=== PATIENT | male | born 1985 | race Caucasian/White ===

== ENCOUNTER 2024-11-20 13:59 | Outpatient (AMB) | payer OTHER, SELFPAY ==
--- NOTE | 2024-11-20 14:02 | MHC.OFFVIS ---
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 Denies finger locking. Has tried braces without relief. Denies any prior injuries to the hands. Reports left wrist ganglion cyst removal 2018. Patient states he had an EMG done at [facility] 2022. 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 He complains of numbness in the median nerve distribution bilaterally. Symptoms intermittent, but daily, worse at night. He complains of weakness with gripping and that he often drops objects. He says he gets numbness and tingling with driving and activities.. He also complains of a burning pain and worsening numbness at night when he is trying to sleep. He says he had a ganglion cyst removed from his left wrist in 2018, and they nicked a nerve during the procedure. he reports some numbness to the back of his wrist He says he had a NCS done at [facility] in 2022, and was told he had bilateral carpal tunnel syndrome. This study is not available for us. He also says he has peripheral neuropathy in his feet. 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 plant Review of Systems Const All systems reviewed & are unremarkable except as noted in HPI and below Physical Exam Vital Signs: BMI result Body Mass Index 42.7 Const General: cooperative, healthy appearing and no acute distress Orientation/consciousness: patient oriented x3 HEENT Head: Yes normocephalic and Yes atraumatic Eyes EOM: EOMs intact bilaterally Resp Effort & Inspection: normal respiratory effort and able to speak in complete sentences Cardio Jugular venous distension: no JVD Skin General skin exam: turgor normal Rashes: no rashes Neuro General: patient oriented x3 Extrem Other: Evaluation of Bilateral Upper Extremity: The patient is alert, oriented, and in no acute distress Neuro: Median, Ulnar, Radial nerves motor and sensory intact and sensation is normal to the tips of all digits. Some numbness to the superficial radial nerve distribution of the left wrist No thenar or intrinsic wasting Good APB muscle belly firing and good finger cross Vascular: Cap refill brisk ROM: He can make a fist and extend all his digits No locking or catching Skin: No lacerations or abrasions. General: No Ecchymosis. No Erythema or evidence of infection. Psych Appearance: grossly normal Affect: normal affect Attitude: cooperative Assessment & Plan Assessment & Plan (1) Bilateral hand numbness: Code(s): R20.0 - Anesthesia of skin Category: Medical Plan Assessment & Plan: 1. Bilateral hand numbness In the median nerve distribution Symptoms intermittent, but daily, worse at night I educated him about carpal & cubital tunnel syndrome I ordered a NCS to assess for peripheral nerve compression He will follow up when completed for review Scribed for Heather Lentz MD by Vlad Burnett medical review specialist, on 11/20/24 at 2:15 PM, EST. Orders: Orders NE nerve conduction velocity Today R20.0 - Anesthesia of skin, R20.2 - Paresthesia of skin Coding Level of Care Code New Pt Level 4 (58211) Diagnoses Bilateral hand numbness R20.0
[2024-11-20 14:08] VITALS: BMI 42.7
--- OUTSIDE RECORDS SUMMARY | 2024-11-20 15:00 | XMS_ITS ---
Author Organization [facility] Address [address] [address] Care Team Providers Care Alarm Technician Name Role Phone JESSICA FERNANDEZ Primary Care Provider REASON FOR VISIT Hand Surgery Encounters Encounter Location Date Provider Diagnosis [address] [address] 10/15/2024 JESSICA FERNANDEZ Plan Of Treatment Next Appt Details Provider Name:Angie maradiaga, 12/04/2024 11:15:00 AM, [address] [place] [address], [place], [address], Progress Notes * Ayaz DAUGHERTY RDOB:1984 (39 yo M)Acc No.[id number]:10/15/2024 Patient:?Ayaz DAUGHERTY :1985???Age:39 Y???Sex:Male Address:[address] [place] [address] * true * Date:? Generated for Printi ng/Du/eTransmitting on:?11/20/2024 03:00 PM EST
--- OUTSIDE RECORDS SUMMARY | 2024-11-20 15:00 | XMS_ITS | Clinical Summary ---
Author Organization [facility] Address [address] [place] [address] Care Team Providers Care Social Studies Department Chair Name Role Phone Dusty Pike MD Primary Care Provider [phone] Medical History Medical History Date Comments ETOH abuse 08/06/2010 DX:ETOH abuse Family History Medical History Relation Name Comments Other: ?bipolar Paternal Grandmother Other: alcoholic Uncle 1 Relation Name Status Comments Paternal Grandmother Uncle 1 Uncle 2 Social History Tobacco Use Types Packs/Day Years Used Date Smoking Tobacco: Every Day Cigarettes Smokeless Tobacco: Never Alcohol Use Standard Drinks/Week Comments Yes 0 (1 standard drink = 0.6 oz pur e alcohol) Sex and Gender Information Value Date Recorded Sex Assigned at Not on file Legal Sex Male 5:52 PM EST Gender Identity Not on file Sexual Orientation Not on file Obstetrics History Plan of Treatment Health Maintenance Due Date Last Done Comments DTaP,Tdap,and Td Vaccines (1 - Tdap) 2002 Hepatitis A Vaccines (1 of 2 - Risk 2-dose series) 2002 Hepatitis B Vaccines (1 of 3 - 19+ 3-dose series) 2002 Pneumococcal Vaccine: Pediat rics (0 to 5 Years) and At-Risk Patients (6 to 64 Years) (1 of 2 - PCV) 2002 Cholesterol Screening (Lipid Panel) 09/04/2022 Depression Screening 09/04/2022 HIV Screening 09/04/2022 Hepatitis C Screening 09/04/2022 Social Influencers of Health Screening 09/04/2022 COVID-19 Vaccine (2023-2 5 season) 2024 Influenza Vaccine (#1) 2024 HIB Vaccines Aged Out No longer eligi ble based on patient's age to complete this topic HPV Vaccines Aged Out No longer eligi ble based on patient's age to complete this topic IPV Vaccines Aged Out No longer eligi ble based on patient's age to complete this topic MMR Vaccines Aged Out No longer eligi ble based on patient's age to complete this topic Meningococcal ACWY Vaccine Aged Out N o longer eligible based on patient's age to complete this topic Meningococcal B Vacine Aged Out No lo nger eligible based on patient's age to complete this topic RSV Immunization Patients Un aniket 20 months Aged Out No longer eligible b ased on patient's age to complete this topic Varicella Vaccines Aged Out No longer eligible based on patient's age to complete this topic Care Teams Social Studies Department Chair Relationship Specialty Start Date End Date Dusty Pike MD [address] [place] [id number] PCP - General Internal Medicine 10/05/21
--- OUTSIDE RECORDS SUMMARY | 2024-11-20 15:01 | XMS_ITS ---
Author Organization [facility] Address [address] [address] Care Team Providers Care Industrial Truck Operator Name Role Phone JESSICA FERNANDEZ Primary Care Provider REASON FOR VISIT Orthopedic Encounters Encounter Location Date Provider Diagnosis [facility] [address] [address] 11/06/2024 JESSICA FERNANDEZ Plan Of Treatment Next Appt Details Provider Name:Angie maradiaga, 12/04/2024 11:15:00 AM, [address] [place] [address], [place], [address], Progress Notes * Ayaz DAUGHERTY RDOB:1984 (39 yo M)Acc No.[id number]:11/06/2024 Patient:?Ayaz DAUGHERTY :1985???Age:39 Y???Sex:Male [address] [facility] [place] [address] * true * Date:? Generated for Printi ng/Du/eTransmitting on:?11/20/2024 03:00 PM EST
--- OUTSIDE RECORDS SUMMARY | 2024-11-20 15:01 | XMS_ITS | Patient Health Record ---
Author Organization [facility] Address [address] [place] [address] Care Team Providers Care Cable Former Name Role Phone JESSICA FERNANDEZ Primary Care Provider Angie Patel Unavailable [phone] Allergies No Known Allergies Results Component Value Reference Range Notes CBC With Differential/Platel et-[id number] Reviewed date:07/10/2024 02:36:26 PM Interpretation: Performing Lab:[facility], [address] [place] [address], [place], Phone - [phone], Director - Carli Notes/Report: Test(s) 118002-Yegfipvzaqgmy Acid, Serum was developed and its performance characteristics determined by [facility]. It has not been cleared or approved by the Food and Drug Administration. WBC 9.7 3.4-10.8 x10E3/uL RBC 4.54 4.14-5.80 x10E6/uL Hemoglobin 14.6 13.0-17.7 g/dL Hematocrit 42.8 37.5-51.0 % MCV 94 79-97 fL MCH 32.2 26.6-33.0 pg MCHC 34.1 31.5-35.7 g/dL RDW 12.8 11.6-15.4 % Platelets 257 150-450 x10E3/uL Neutrophils 65 Not Estab. % Lymphs 25 Not Estab. % Monocytes 9 Not Estab. % Eos 1 Not Estab. % Basos 0 Not Estab. % Neutrophils (Absolute) 6.3 1.4-7.0 x10E3/uL Lymphs (Absolute) 2.4 0.7-3.1 x10E3/uL Monocytes(Absolute) 0.8 0.1-0.9 x10E3/uL Eos (Absolute) 0.1 0.0-0.4 x10E3/uL Baso (Absolute) 0.0 0.0-0.2 x10E3/uL Immature Granulocytes 0 Not Estab. % Immature Grans (Abs) 0.0 0.0-0.1 x10E3/uL TSH-[id number] Reviewed date:07/10/2024 02:08:55 PM Interpretation: Performing Lab:[facility] [address], Phone - [phone], Director - [facility] Notes/Report: Test(s) 982661-Npasuyjtpbfgp Acid, Serum was developed and its performance characteristics determined by [facility]. It has not been cleared or approved by the Food and Drug Administration. TSH 1.820 0.450-4.500 uIU/mL Homocyst(e)ine-853787 Reviewed date:07/10/2024 10:19:56 AM Interpretation: Performing Lab:[facility] [address], Phone - [phone], Director [facility] Notes/Report: Test(s) 697696-Dzpvjcmmomxlv Acid, Serum was developed and its performance characteristics determined by [facility]. It has not been cleared or approved by the Food and Drug Administration. Homocyst(e)ine 10.5 0.0-14.5 umol/L Methylmalonic Acid, Serum-70 6961 Reviewed date:07/10/2024 02:36:11 PM Interpretation: Performing Lab:[facility] [address], Phone - [phone], [facility] [place]: Test(s) 167742-Rtdsragqqgmfc Acid, Serum was developed and its performance characteristics determined by [facility]. It has not been cleared or approved by the Food and Drug Administration. Methylmalonic Acid, Serum 116 0-378 nmol/L Lipid Panel-[id number] Reviewed date:07/10/2024 02:13:16 PM Interpretation: Performing Lab:[facility] [address], Phone - [phone], [facility] [place]/Report: Test(s) 303735-Qdotnjsltfvep Acid, Serum was developed and its performance characteristics determined by [facility]. It has not been cleared or approved by the Food and Drug Administration. Cholesterol, Total 225 100-199 mg/dL Triglycerides 247 0-149 mg/dL HDL Cholesterol 44 >39 mg/dL VLDL Cholesterol Harvey 44 5-40 mg/dL LDL Chol Calc ([facility]) 137 0-99 mg/dL Ferritin-[id number] Reviewed date:07/10/2024 02:36:33 PM Interpretation: Performing Lab:[facility] [address], Phone - [phone], [facility] [place]/Report: Test(s) 615193-Jqcztobewjyyz Acid, Serum was developed and its performance characteristics determined by [facility]. It has not been cleared or approved by the Food and Drug Administration. Ferritin 619 30-400 ng/mL Magnesium-346716 Reviewed date:07/10/2024 02:36:18 PM Interpretation: Performing Lab:[facility] [address], Phone - [phone], [facility] [place]/Report: Test(s) 265123-Iseivppmpfdrv Acid, Serum was developed and its performance characteristics determined by [facility]. It has not been cleared or approved by the Food and Drug Administration. Magnesium 2.2 1.6-2.3 mg/dL Iron and TIBC-535122 Reviewed date:07/10/2024 03:23:58 PM Interpretation: Performing Lab:[facility] [address], Phone - [phone], [facility] [place]/Report: Test(s) 046279-Tnpmkiowwtfyc Acid, Serum was developed and its performance characteristics determined by [facility]. It has not been cleared or approved by the Food and Drug Administration. Iron Bind.Cap.(TIBC) 331 250-450 ug/dL UIBC 272 111-343 ug/dL Iron 59 38-169 ug/dL Iron Saturation 18 15-55 % Vitamin B12 and Folate-37746 0 Reviewed date:07/10/2024 03:26:58 PM Interpretation: Performing Lab:[facility] [address], Phone - [phone], [facility] [place]/Report: Test(s) 022920-Enorjfmxvrqwz Acid, Serum was developed and its performance characteristics determined by [facility]. It has not been cleared or approved by the Food and Drug Administration. Vitamin B12 641 944-4918 pg/mL Folate (Folic Acid), Serum 8.9 >3.0 ng/mL A serum folate concentration of less than 3.1 ng/mL is considered to represent clinical deficiency. Reason For Referral Reason ingrown toenail Diagnosis 1 Ingrowing nail (L60. 0) Referral Organization [facility] Referring Provider First Name JESSICA Referring Provider Last Name DAYANARA Referring Provider Speciality Internal edicine Referred Provider Specialty Podiatry General Notes Referral faxed to [facility] at F: P: . Referral Hand given to patient. MaryThelma moya 01/04/2024 02:00:08 PM > Referral Priority Routine Reason Evaluation and manag ement Diagnosis 1 Encounter for screen ing for malignant neoplasm of skin (Z12.83) Referral Organization [facility] Referring Provider First Name JESSICA Referring Provider Last Name DAYANARA Referring Provider Speciality Internal edicine Referred Provider Specialty Dermatology General Notes Referral sent to [facility] ([address] [place], [place] [id number] ) - Office will call patient for scheduling.Michael Latraya 07/31/2024 04:42:01 PM > Referral Priority Routine Reason B/L CTS Please casey luate and treat Diagnosis 1 Carpal tunnel syndro me, bilateral upper limbs (G56.03) Referral Organization [facility] Referring Provider First Name JESSICA Referring Provider Last Name DAYANARA Referring Provider Speciality Internal edicine Referred Provider Specialty Hand Surgery General Notes refarral was faxed t o [facility], please contact patient for scheduling.Michaela Rashida 10/15/2024 11:51:06 AM > Referral Priority Routine Reason PLEASE EVALUATE AND TREAT Diagnosis 1 Carpal tunnel syndro me, bilateral upper limbs (G56.03) Referral Organization [facility] Referring Provider First Name Angie Referring Provider Last Name Jorge Referred Provider Specialty Orthopedic S urgery General Notes referral was faxed t o [facility]. Please contact patient for scheduling, Kimi Jennings 11/06/2024 04:46:55 PM > Referral Priority Routine Reason please evaluate and treat Diagnosis 1 Hidradenitis suppura tiva (L73.2) Referral Organization [facility] Referring Provider First Name Angie Referring Provider Last Name Jorge Referred Provider Specialty Dermatology General Notes referral was faxed t o [facility]. please contact patient for scheduling., Kimi Jennings 11/06/2024 04:45:30 PM > Referral Priority Routine Medications Medication SIG (Take, Route, Frequency, Duration) Notes Start Date End Date Status Sertraline HCl 50 MG 1 tablet Orally Onc e a day for 30 days 09/04/2024 Active chlordiazePOXIDE HCl 25 MG 1 capsule Ora lly Twice a day for 5 days 06/28/2024 Not-Taking Zepbound 7.5 MG/0.5ML 0.5 mL Subcutaneou s weekly for 30 days 11/06/2024 Active Meloxicam 15 MG 1 tablet Orally Once a day for 30 days 06/05/2024 Active Naltrexone HCl 50 MG 1 tablet Orally Onc e a day for 30 days 11/02/2023 Not-Taking Sertraline HCl 50 MG 1 tablet Orally Onc e a day for 30 days 11/06/2024 Active Ondansetron HCl 4 MG 1 tablet Orally twi ce a day for 10 days 07/24/2024 Active Meloxicam 15 MG 1 tablet Orally Once a day for 30 day(s) 11/22/2022 Not-Taking Doxycycline Hyclate 100 MG 1 tablet Oral ly 2 TIMES A DAY for 14 days 07/24/2024 Not-Taking tiZANidine HCl 4 MG 1 tablet as needed Orally Three times a day for 7 days 11/22/2022 Not-Taking Ezetimibe 10 MG 1 tablet Orally Once a day for 90 days 07/10/2024 Active Acamprosate Calcium 333 MG 2 tablets Ora lly Three times a day for 30 days 06/28/2024 Not-Taking Gabapentin 300 MG 1 capsule Orally Onc e a day for 30 days 12/07/2023 Active tiZANidine HCl 4 MG 1 tablet at bedtime as needed Orally Once a day for 14 days 06/05/2024 Not-Taking Zepbound 5 MG/0.5ML 5 mg Subcutaneous weekly for 30 days 06/05/2024 Active Wegovy 2.4 MG/0.75ML 0.75 mL Subcutaneou s once a week for 30 days 12/29/2022 Not-Taking Cialis 5 MG 1 tablet as needed Orally Once a day for 30 days Active Ondansetron HCl 4 MG 1 tablet Orally twi ce a day for 10 days 02/23/2024 Not-Taking cloNIDine HCl 0.1 MG 1 tablet Orally Onc e a day for 30 days 06/28/2024 Active Social History Tobacco Use: Social History Observation Description Date Details (start date - stop date) Current Smoker NA - NA Tobacco Use/Smoking Question Answer Notes Are you a current smoker How often do you smoke cigarettes? every day Alcohol Screen (Audit-C) Question Answer Notes Did you have a drink contain ing alcohol in the past year? Yes How often did you have a dri nk containing alcohol in the past year? 4 or more times a week (4 points) How many drinks did you have on a typical day when you were drinking in the past year? 10 or more drinks (4 points) Points 8 Interpretation Positive Problems Problem Type SNOMED Code ICD Code Onset Dates Problem Status W/U Status Risk Notes Problem Morbid obesity (disorder) (148466990) Morbid (severe) obesity due to excess calories (E66.01) Active confirmed Problem Mixed hyperlipidemia (847032557) Mixed hyperlipidemia (E78.2) Active confirmed Problem Hyperlipidemia (62553902) Hyperlipidemia, unspecified (E78.5) Active confirmed Problem Alcohol dependence (98113010) Alcohol dependence, uncomplicated (F10.20) Active confirmed Problem Tobacco user (985440363) Nicotine dependence, cigarettes, uncomplicated (F17.210) Active confirmed Problem Obstructive sleep apnea syndrome (disorder) (30936053) Obstructive sleep apnea (adult) (pediatric) (G47.33) Active confirmed Problem Carpal tunnel syndrome (54740523) Carpal tunnel syndrome, left upper limb (G56.02) Active confirmed Problem Polyneuropathy (90643310) Polyneuropathy, unspecified (G62.9) Active confirmed Problem Constipation (11745046) Constipation, unspecified (K59.00) Active confirmed Problem Hidradenitis suppurativa (23472933) Hidradenitis suppurativa (L73.2) Active confirmed Problem Degeneration of thoracolumbar intervertebral disc (98899932) Other intervertebral disc degeneration, thoracolumbar region (M51.35) Active confirmed Problem Plantar fascial fibromatosis (58385941) Plantar fascial fibromatosis (M72.2) Active confirmed Problem Erectile dysfunction (disorder) (997648385) Male erectile dysfunction, unspecified (N52.9) Active confirmed Problem Paresthesia (finding) (91910460) Paresthesia of skin (R20.2) Active confirmed Problem Carpal tunnel syndrome (63721475) Carpal tunnel syndrome, bilateral upper limbs (G56.03) Active confirmed Problem Anxiety (96785809) Anxiety (F41.9) Active confirmed Vital Signs Heart Rate 88 /min 11/06/2024 Temperature 96.6 degrees Fahrenheit 11/06/2024 Blood pressure diastolic 70 mm Hg 11/06/2024 Oximetry 97 % 11/06/2024 Height 70 in 11/06/2024 Blood pressure systolic 118 mm Hg 11/06/2024 Weight 319.2 lbs 11/06/2024 BMI 45.8 kg/m2 11/06/2024 Encounters Encounter Location Date Provider Diagnosis [address] [address] 02/29/[address] [address] 08/22/[address] [address] 11/06/2024 Ghadeer Mazloum Morbid (severe) obes ity due to excess calories E66.01 ; Anxiety F41.9 ; Carpal tunnel syndrome, bilateral upper limbs G56.03 ; Carpal tunnel syndrome, left upper limb G56.02 and Hidradenitis suppurativa L73.[address] [address] 12/07/2023 [facility] Morbid (severe) obes ity due to excess calories E66.01 ; Dietary counseling and surveillance Z71.3 ; Constipation, unspecified K59.00 ; Alcohol dependence, uncomplicated F10.20 ; Nicotine dependence, cigarettes, uncomplicated F17.210 ; Paresthesia of skin R20.2 and Ingrowing nail L60.0 [facility] [address] [place] [address] 01/04/2024 LOPEZ GUL Morbid (severe) obes ity due to excess calories E66.01 ; Dietary counseling and surveillance Z71.3 ; Alcohol dependence, uncomplicated F10.20 ; Nicotine dependence, cigarettes, uncomplicated F17.210 and Other intervertebral disc degeneration, thoracolumbar region M51.35 [facility] [address] [place] [address] 02/01/2024 LOPEZ GUL Morbid (severe) obes ity due to excess calories E66.01 ; Dietary counseling and surveillance Z71.3 ; Alcohol dependence, uncomplicated F10.20 ; Nicotine dependence, cigarettes, uncomplicated F17.210 and Other intervertebral disc degeneration, thoracolumbar region M51.[address] [place] [address] 06/05/2024 LOPEZ GUL Other intervertebral disc degeneration, thoracolumbar region M51.35 ; Morbid (severe) obesity due to excess calories E66.01 and Dietary counseling and surveillance Z71.[address] [place] [address] 06/28/2024 Ghadeer Mazloum Alcohol dependence, uncomplicated F10.20 ; Dizziness R42 ; Anxiety F41.9 and Obstructive sleep apnea (adult) (pediatric) G47.[address] [place] [address] 07/24/2024 LOPEZ GUL Morbid (severe) obes ity due to excess calories E66.01 ; Anxiety F41.9 ; Hidradenitis suppurativa L73.2 and Dietary counseling and surveillance Z71.[address] [place] [address] 09/04/2024 Ghadeer Mazloum Morbid (severe) obes ity due to excess calories E66.01 ; Anxiety F41.9 and Hyperlipidemia, unspecified E78.[address] [place] [address] 10/09/2024 LOPEZ GUL Morbid (severe) obes ity due to excess calories E66.01 ; Anxiety F41.9 ; Hyperlipidemia, unspecified E78.5 ; Plantar fascial fibromatosis M72.2 and Carpal tunnel syndrome, bilateral upper limbs G56.03 [facility] [address] [place] [address] 11/28/2023 [facility] [address] [place] [address] 01/04/2024 [facility] [address] [place] [address] 01/18/2024 [facility] [address] [place] [address] 02/01/2024 LOPEZ GUL Dietary counseling a nd surveillance Z71.3 [facility] [address] [place] [address] 02/09/2024 LOPEZ GU Dietary counseling a nd surveillance Z71.3 [facility] [address] [place] [address] 02/23/2024 [facility] [address] [place] [address] 03/05/2024 [facility] [address] [place] [address] 06/05/2024 [facility] [address] [place] [address] 06/27/2024 LOPEZ GU Morbid (severe) obes ity due to excess calories E66.01 [facility] [address] [place] [address] 07/06/2024 [facility] [address] [place] [address] 07/10/2024 [facility] Mixed hyperlipidemia E78.2 [facility] [address] [place] [address] 07/24/2024 [facility] Morbid (severe) obes ity due to excess calories E66.[address] [place] [address] 07/31/[address] [place] [address] 08/24/[address] [place] [address] 08/25/[address] [place] [address] 10/15/[address] [place] [address] 11/06/2024 [facility] Assessments Encounter Date Diagnosis (ICD Code) Assessment Notes Treatment Notes Treatment Clinical Notes Section Notes 12/07/2023 Morbid (severe) obesity due to excess calories (ICD-10 - E66.01) Mr. Tolentino is a 38-year-old gentleman with testicular hypofunction and morbid obesity here for follow up. Plan is as follows: Dietary recommendations. Food recall was done today and patient advised to be on low calorie, low carbohydrate diet. Restrict calories to less than 1500 kcal in 24 hours. Low glycemic index foods and encouraged. Meal replacements were recommended. Advised to use xijs-esw-clktsad multivitamins and vitamin D. Advised to use calorie counter and adhere to portion control. Monthly goal is to lose 4-6 pounds Pharmacotherapy. Continue Ozempic (0.25 or 0.5 MG/DOSE) 2 MG/1.5ML weekly and Naltrexone 50 MG. Side effects explained to the patient. Goal is to lose 3-5% of body weight in 3 months. Exercise. Patient encouraged to increase frequency, intensity and duration of exercise. Encouraged to burn at least 250-500 kcal in one session. Also encouraged to do weight training Assess. Different risk factors discussed with the patient and addressed Advise. Patient was given clear And specific advise that she will comply with Low-calorie diet and try not to exceed more than 1300 kcal in 24 hours. Agree. Mutually agreed to work together to achieve appropriate goals Assist. Motivational interviewing done. Arrange. Follow-up appointment arranged. Counseling. 20 minutes spent Face to face with the patient more than 50% of time was spent counseling Alcohol dependence. Discussed complications of alcohol intake and advised to cut back. He was started on naltrexone which will help with alcohol cessation and weight loss Nicotine dependence. He is still currently smoking and cessation advised. Paresthesia of skin. Start Gabapentin 300 MG once a day Erectile dysfunction. Cialis 5 mg 1 tablet take half an hour before going to bed. Side effects discussed with the patient General health concerns discussed with patient. Scribe services used to formulate this note under HIPAA compliance and under [place] law mandated for scribe services. Patient aware of service. Verbal consent and written consent taken from the patient. Patient understands and verbalizes understanding of the scribes services and all questions answered regarding scribes services. Patient agrees to use of scribes services. 12/07/2023 Dietary counseling and surveillance (ICD-10 - Z71.3) Mr. Tolentino is a 38-year-old gentleman with testicular hypofunction and morbid obesity here for follow up. Plan is as follows: Dietary recommendations. Food recall was done today and patient advised to be on low calorie, low carbohydrate diet. Restrict calories to less than 1500 kcal in 24 hours. Low glycemic index foods and encouraged. Meal replacements were recommended. Advised to use eisw-gxq-zhtfamo multivitamins and vitamin D. Advised to use calorie counter and adhere to portion control. Monthly goal is to lose 4-6 pounds Pharmacotherapy. Continue Ozempic (0.25 or 0.5 MG/DOSE) 2 MG/1.5ML weekly and Naltrexone 50 MG. Side effects explained to the patient. Goal is to lose 3-5% of body weight in 3 months. Exercise. Patient encouraged to increase frequency, intensity and duration of exercise. Encouraged to burn at least 250-500 kcal in one session. Also encouraged to do weight training Assess. Different risk factors discussed with the patient and addressed Advise. Patient was given clear And specific advise that she will comply with Low-calorie diet and try not to exceed more than 1300 kcal in 24 hours. Agree. Mutually agreed to work together to achieve appropriate goals Assist. Motivational interviewing done. Arrange. Follow-up appointment arranged. Counseling. 20 minutes spent Face to face with the patient more than 50% of time was spent counseling Alcohol dependence. Discussed complications of alcohol intake and advised to cut back. He was started on naltrexone which will help with alcohol cessation and weight loss Nicotine dependence. He is still currently smoking and cessation advised. Paresthesia of skin. Start Gabapentin 300 MG once a day Erectile dysfunction. Cialis 5 mg 1 tablet take half an hour before going to bed. Side effects discussed with the patient General health concerns discussed with patient. Scribe services used to formulate this note under HIPAA compliance and under [place] law mandated for scribe services. Patient aware of service. Verbal consent and written consent taken from the patient. Patient understands and verbalizes understanding of the scribes services and all questions answered regarding scribes services. Patient agrees to use of scribes services. 01/04/2024 Morbid (severe) obesity due to excess calories (ICD-10 - E66.01) Mr. Tolentino is a 38-year-old gentleman with testicular hypofunction and morbid obesity here for follow up. We saw him in December. He lost 7 lbs since last visit. Plan is as follows: Dietary recommendations. Food recall was done today and patient advised to be on low calorie, low carbohydrate diet. Restrict calories to less than 1500 kcal in 24 hours. Low glycemic index foods and encouraged. Meal replacements were recommended. Advised to use lsmm-zpp-yroiaip multivitamins and vitamin D. Advised to use calorie counter and adhere to portion control. Monthly goal is to lose 4-6 pounds Pharmacotherapy. Continue Ozempic (0.25 or 0.5 MG/DOSE) 2 MG/1.5ML weekly and Naltrexone 50 MG. Side effects explained to the patient. Goal is to lose 3-5% of body weight in 3 months. Exercise. Patient encouraged to increase frequency, intensity and duration of exercise. Encouraged to burn at least 250-500 kcal in one session. Also encouraged to do weight training Assess. Different risk factors discussed with the patient and addressed Advise. Patient was given clear And specific advise that she will comply with Low-calorie diet and try not to exceed more than 1300 kcal in 24 hours. Agree. Mutually agreed to work together to achieve appropriate goals Assist. Motivational interviewing done. Arrange. Follow-up appointment arranged. Counseling. 20 minutes spent Face to face with the patient more than 50% of time was spent counseling Alcohol dependence. Discussed complications of alcohol intake and advised to cut back. He was started on naltrexone which will help with alcohol cessation and weight loss Nicotine dependence. He is still currently smoking and cessation advised. DDD. He takes Gabapentin 300 MG once a day. Screening blood work before next appointment. General health concerns discussed with patient. Scribe services used to formulate this note under HIPAA compliance and under [place] law mandated for scribe services. Patient aware of service. Verbal consent and written consent taken from the patient. Patient understands and verbalizes understanding of the scribes services and all questions answered regarding scribes services. Patient agrees to use of scribes services. 01/04/2024 Dietary counseling and surveillance (ICD-10 - Z71.3) Mr. Tolentino is a 38-year-old gentleman with testicular hypofunction and morbid obesity here for follow up. We saw him in December. He lost 7 lbs since last visit. Plan is as follows: Dietary recommendations. Food recall was done today and patient advised to be on low calorie, low carbohydrate diet. Restrict calories to less than 1500 kcal in 24 hours. Low glycemic index foods and encouraged. Meal replacements were recommended. Advised to use qnve-nra-lsfxgey multivitamins and vitamin D. Advised to use calorie counter and adhere to portion control. Monthly goal is to lose 4-6 pounds Pharmacotherapy. Continue Ozempic (0.25 or 0.5 MG/DOSE) 2 MG/1.5ML weekly and Naltrexone 50 MG. Side effects explained to the patient. Goal is to lose 3-5% of body weight in 3 months. Exercise. Patient encouraged to increase frequency, intensity and duration of exercise. Encouraged to burn at least 250-500 kcal in one session. Also encouraged to do weight training Assess. Different risk factors discussed with the patient and addressed Advise. Patient was given clear And specific advise that she will comply with Low-calorie diet and try not to exceed more than 1300 kcal in 24 hours. Agree. Mutually agreed to work together to achieve appropriate goals Assist. Motivational interviewing done. Arrange. Follow-up appointment arranged. Counseling. 20 minutes spent Face to face with the patient more than 50% of time was spent counseling Alcohol dependence. Discussed complications of alcohol intake and advised to cut back. He was started on naltrexone which will help with alcohol cessation and weight loss Nicotine dependence. He is still currently smoking and cessation advised. DDD. He takes Gabapentin 300 MG once a day. Screening blood work before next appointment. General health concerns discussed with patient. Scribe services used to formulate this note under HIPAA compliance and under [place] law mandated for scribe services. Patient aware of service. Verbal consent and written consent taken from the patient. Patient understands and verbalizes understanding of the scribes services and all questions answered regarding scribes services. Patient agrees to use of scribes services. 02/01/2024 Morbid (severe) obesity due to excess calories (ICD-10 - E66.01) Mr. Tolentino is a 38-year-old gentleman with testicular hypofunction and morbid obesity here for follow up. We saw him in January. No weight change since last visit. Plan is as follows: Dietary recommendations. Food recall was done today and patient advised to be on low calorie, low carbohydrate diet. Restrict calories to less than 1500 kcal in 24 hours. Low glycemic index foods and encouraged. Meal replacements were recommended. Advised to use kcii-fpn-jxllahu multivitamins and vitamin D. Advised to use calorie counter and adhere to portion control. Monthly goal is to lose 4-6 pounds Pharmacotherapy. His Ozempic (0.25 or 0.5 MG/DOSE) 2 MG/1.5ML was denied by his insurance because he is not diabetic. Start Wegovy 2.4 MG/0.75ML and continue Naltrexone 50 MG. Side effects explained to the patient. Goal is to lose 3-5% of body weight in 3 months. Exercise. Patient encouraged to increase frequency, intensity and duration of exercise. Encouraged to burn at least 250-500 kcal in one session. Also encouraged to do weight training Assess. Different risk factors discussed with the patient and addressed Advise. Patient was given clear And specific advise that she will comply with Low-calorie diet and try not to exceed more than 1300 kcal in 24 hours. Agree. Mutually agreed to work together to achieve appropriate goals Assist. Motivational interviewing done. Arrange. Follow-up appointment arranged. Counseling. 20 minutes spent Face to face with the patient more than 50% of time was spent counseling Alcohol dependence. Discussed complications of alcohol intake and advised to cut back. He was started on naltrexone which will help with alcohol cessation and weight loss Nicotine dependence. He is still currently smoking and cessation advised. DDD. He takes Gabapentin 300 MG once a day. Screening blood work before next appointment. General health concerns discussed with patient. Scribe services used to formulate this note under HIPAA compliance and under [place] law mandated for scribe services. Patient aware of service. Verbal consent and written consent taken from the patient. Patient understands and verbalizes understanding of the scribes services and all questions answered regarding scribes services. Patient agrees to use of scribes services. 02/01/2024 Dietary counseling and surveillance (ICD-10 - Z71.3) Mr. Tolentino is a 38-year-old gentleman with testicular hypofunction and morbid obesity here for follow up. We saw him in January. No weight change since last visit. Plan is as follows: Dietary recommendations. Food recall was done today and patient advised to be on low calorie, low carbohydrate diet. Restrict calories to less than 1500 kcal in 24 hours. Low glycemic index foods and encouraged. Meal replacements were recommended. Advised to use rdog-esm-gancikp multivitamins and vitamin D. Advised to use calorie counter and adhere to portion control. Monthly goal is to lose 4-6 pounds Pharmacotherapy. His Ozempic (0.25 or 0.5 MG/DOSE) 2 MG/1.5ML was denied by his insurance because he is not diabetic. Start Wegovy 2.4 MG/0.75ML and continue Naltrexone 50 MG. Side effects explained to the patient. Goal is to lose 3-5% of body weight in 3 months. Exercise. Patient encouraged to increase frequency, intensity and duration of exercise. Encouraged to burn at least 250-500 kcal in one session. Also encouraged to do weight training Assess. Different risk factors discussed with the patient and addressed Advise. Patient was given clear And specific advise that she will comply with Low-calorie diet and try not to exceed more than 1300 kcal in 24 hours. Agree. Mutually agreed to work together to achieve appropriate goals Assist. Motivational interviewing done. Arrange. Follow-up appointment arranged. Counseling. 20 minutes spent Face to face with the patient more than 50% of time was spent counseling Alcohol dependence. Discussed complications of alcohol intake and advised to cut back. He was started on naltrexone which will help with alcohol cessation and weight loss Nicotine dependence. He is still currently smoking and cessation advised. DDD. He takes Gabapentin 300 MG once a day. Screening blood work before next appointment. General health concerns discussed with patient. Scribe services used to formulate this note under HIPAA compliance and under [place] law mandated for scribe services. Patient aware of service. Verbal consent and written consent taken from the patient. Patient understands and verbalizes understanding of the scribes services and all questions answered regarding scribes services. Patient agrees to use of scribes services. 02/01/2024 Dietary counseling and surveillance (ICD-10 - Z71.3) 02/09/2024 Dietary counseling and surveillance (ICD-10 - Z71.3) 06/05/2024 Morbid (severe) obesity due to excess calories (ICD-10 - E66.01) Mr. Tolentino is a 38-year-old gentleman with testicular hypofunction and morbid obesity here for follow up.We saw him in January. No weight change since last visit. Plan is as follows: Dietary recommendations. Food recall was done today and patient advised to be on low calorie, low carbohydrate diet. Restrict calories to less than 1500 kcal in 24 hours. Low glycemic index foods and encouraged. Meal replacements were recommended. Advised to use myqo-frw-fhmilia multivitamins and vitamin D. Advised to use calorie counter and adhere to portion control. Monthly goal is to lose 4-6 pounds Pharmacotherapy. Start Zepbound Solution Auto-injector, 2.5 MG/0.5ML, Side effects explained to the patient. Goal is to lose 3-5% of body weight in 3 months. Exercise. Patient encouraged to increase frequency, intensity and duration of exercise. Encouraged to burn at least 250-500 kcal in one session. Also encouraged to do weight training Assess. Different risk factors discussed with the patient and addressed Advise. Patient was given clear And specific advise that she will comply with Low-calorie diet and try not to exceed more than 1300 kcal in 24 hours. Agree. Mutually agreed to work together to achieve appropriate goals Assist. Motivational interviewing done. Arrange. Follow-up appointment arranged. Counseling. 20 minutes spent Face to face with the patient more than 50% of time was spent counseling Alcohol dependence. Discussed complications of alcohol intake and advised to cut back. He was started on naltrexone which will help with alcohol cessation and weight loss Nicotine dependence. He is still currently smoking and cessation advised. DDD/back pain. He takes Gabapentin 300 MG once a day.Start tizanidine 4 MG and meloxicam 15 MG once a day. He wants to have [place] paperwork for intermittent flareups. He is not interested in physical therapy and is doing home exercises. General health concerns discussed with patient. Scribe services used to formulate this note under HIPAA compliance and under [place] law mandated for scribe services. Patient aware of service. Verbal consent and written consent taken from the patient. Patient understands and verbalizes understanding of the scribes services and all questions answered regarding scribes services. Patient agrees to use of scribes services. 06/05/2024 Other intervertebral disc degeneration, thoracolumbar region (ICD-10 - M51.35) Mr. Tolentino is a 38-year-old gentleman with testicular hypofunction and morbid obesity here for follow up.We saw him in January. No weight change since last visit. Plan is as follows: Dietary recommendations. Food recall was done today and patient advised to be on low calorie, low carbohydrate diet. Restrict calories to less than 1500 kcal in 24 hours. Low glycemic index foods and encouraged. Meal replacements were recommended. Advised to use xtdn-dut-kutttol multivitamins and vitamin D. Advised to use calorie counter and adhere to portion control. Monthly goal is to lose 4-6 pounds Pharmacotherapy. Start Zepbound Solution Auto-injector, 2.5 MG/0.5ML, Side effects explained to the patient. Goal is to lose 3-5% of body weight in 3 months. Exercise. Patient encouraged to increase frequency, intensity and duration of exercise. Encouraged to burn at least 250-500 kcal in one session. Also encouraged to do weight training Assess. Different risk factors discussed with the patient and addressed Advise. Patient was given clear And specific advise that she will comply with Low-calorie diet and try not to exceed more than 1300 kcal in 24 hours. Agree. Mutually agreed to work together to achieve appropriate goals Assist. Motivational interviewing done. Arrange. Follow-up appointment arranged. Counseling. 20 minutes spent Face to face with the patient more than 50% of time was spent counseling Alcohol dependence. Discussed complications of alcohol intake and advised to cut back. He was started on naltrexone which will help with alcohol cessation and weight loss Nicotine dependence. He is still currently smoking and cessation advised. DDD/back pain. He takes Gabapentin 300 MG once a day.Start tizanidine 4 MG and meloxicam 15 MG once a day. He wants to have [employer]ML[employer] paperwork for intermittent flareups. He is not interested in physical therapy and is doing home exercises. General health concerns discussed with patient. Scribe services used to formulate this note under HIPAA compliance and under [place] law mandated for scribe services. Patient aware of service. Verbal consent and written consent taken from the patient. Patient understands and verbalizes understanding of the scribes services and all questions answered regarding scribes services. Patient agrees to use of scribes services. 06/27/2024 Morbid (severe) obesity due to excess calories (ICD-10 - E66.01) 06/28/2024 Alcohol dependence, uncomplicated (ICD-10 - F10.20) Mr. Tolentino is a 38-year-old gentleman with testicular hypofunction and morbid obesity here for dizziness. Plan as follows. Plan is as follows: Dizziness: - Had prior URI then he started experiencing dizziness. Only experienced two episodes. Triggered by head movement. Denies neuro deficits, no cardiac sxs. PE was negative for Romberg, negative darion-hillpike, no neuro deficit, no nystagmus, strength/sensation intact UE/KAYLEE BL, no swelling of the feet, Lungs CTAB. - DDX: Vertigo/ labyrinthitis secondary to URI, anxiety. - He defers starting on meclizine for vertigo. Alcohol dependence. Discussed complications of alcohol intake and advised to cut back. -He is started on campral, clonidine. - He binges on drinking etoh more than 10 drinks every 3 days. Per patient he usually experiences withdrawal sxs. I will start patient on Librium to avoid withdrawal sxs. - Check labs to r/o abnormalities FLORA: - Non-compliant with CPAP. Advised on adherence. Complications have been discussed. General health concerns discussed with patient. I have rendered the services for this patient under direct supervision of Dr. Fernandez, but was consulted 06/28/2024 Dizziness (ICD-10 - R42) Mr. Tolentino is a 38-year-old gentleman with testicular hypofunction and morbid obesity here for dizziness. Plan as follows. Plan is as follows: Dizziness: - Had prior URI then he started experiencing dizziness. Only experienced two episodes. Triggered by head movement. Denies neuro deficits, no cardiac sxs. PE was negative for Romberg, negative darion-hillpike, no neuro deficit, no nystagmus, strength/sensation intact UE/KAYLEE BL, no swelling of the feet, Lungs CTAB. - DDX: Vertigo/ labyrinthitis secondary to URI, anxiety. - He defers starting on meclizine for vertigo. Alcohol dependence. Discussed complications of alcohol intake and advised to cut back. -He is started on campral, clonidine. - He binges on drinking etoh more than 10 drinks every 3 days. Per patient he usually experiences withdrawal sxs. I will start patient on Librium to avoid withdrawal sxs. - Check labs to r/o abnormalities FLORA: - Non-compliant with CPAP. Advised on adherence. Complications have been discussed. General health concerns discussed with patient. I have rendered the services for this patient under direct supervision of Dr. Fernandez, but was consulted 07/10/2024 Mixed hyperlipidemia (ICD-10 - E78.2) 07/24/2024 Morbid (severe) obesity due to excess calories (ICD-10 - E66.01) Mr. Tolentino is a 38-year-old gentleman with testicular hypofunction and morbid obesity here for medical weight management. We saw him in June. He lost 7 lbs since last visit. Plan is as follows: Dietary recommendations. Food recall was done today and patient advised to be on low calorie, low carbohydrate diet. Restrict calories to less than 1500 kcal in 24 hours. Low glycemic index foods and encouraged. Meal replacements were recommended. Advised to use rosp-vji-mxygdgy multivitamins and vitamin D. Advised to use calorie counter and adhere to portion control. Monthly goal is to lose 4-6 pounds Pharmacotherapy. Continue on Zepbound 2.5MG/0.5ML weekly and titrate up after 4 weeks. Side effects explained to the patient. Goal is to lose 3-5% of body weight in 3 months. Exercise. Patient encouraged to increase frequency, intensity and duration of exercise. Encouraged to burn at least 250-500 kcal in one session. Also encouraged to do weight training Assess. Different risk factors discussed with the patient and addressed Advise. Patient was given clear And specific advise that she will comply with Low-calorie diet and try not to exceed more than 1300 kcal in 24 hours. Agree. Mutually agreed to work together to achieve appropriate goals Assist. Motivational interviewing done. Arrange. Follow-up appointment arranged. Counseling. 20 minutes spent Face to face with the patient more than 50% of time was spent counseling General health concerns discussed with patient. Scribe services used to formulate this note under HIPAA compliance and under [place] law mandated for scribe services. Patient aware of service. Verbal consent and written consent taken from the patient. Patient understands and verbalizes understanding of the scribes services and all questions answered regarding scribes services. Patient agrees to use of scribes services. 07/24/2024 Anxiety (ICD-10 - F41.9) Mr. Tolentino is a 38-year-old gentleman with testicular hypofunction and morbid obesity here for medical weight management. We saw him in June. He lost 7 lbs since last visit. Plan is as follows: Dietary recommendations. Food recall was done today and patient advised to be on low calorie, low carbohydrate diet. Restrict calories to less than 1500 kcal in 24 hours. Low glycemic index foods and encouraged. Meal replacements were recommended. Advised to use oqtw-dpo-wadziwn multivitamins and vitamin D. Advised to use calorie counter and adhere to portion control. Monthly goal is to lose 4-6 pounds Pharmacotherapy. Continue on Zepbound 2.5MG/0.5ML weekly and titrate up after 4 weeks. Side effects explained to the patient. Goal is to lose 3-5% of body weight in 3 months. Exercise. Patient encouraged to increase frequency, intensity and duration of exercise. Encouraged to burn at least 250-500 kcal in one session. Also encouraged to do weight training Assess. Different risk factors discussed with the patient and addressed Advise. Patient was given clear And specific advise that she will comply with Low-calorie diet and try not to exceed more than 1300 kcal in 24 hours. Agree. Mutually agreed to work together to achieve appropriate goals Assist. Motivational interviewing done. Arrange. Follow-up appointment arranged. Counseling. 20 minutes spent Face to face with the patient more than 50% of time was spent counseling General health concerns discussed with patient. Scribe services used to formulate this note under HIPAA compliance and under [place] law mandated for scribe services. Patient aware of service. Verbal consent and written consent taken from the patient. Patient understands and verbalizes understanding of the scribes services and all questions answered regarding scribes services. Patient agrees to use of scribes services. 07/24/2024 Morbid (severe) obesity due to excess calories (ICD-10 - E66.01) 09/04/2024 Morbid (severe) obesity due to excess calories (ICD-10 - E66.01) Mr. Tolentino is a 38-year-old gentleman with testicular hypofunction and morbid obesity here for medical weight management. We saw him in June. He lost 22 lbs since last visit. Plan is as follows: Dietary recommendations. Food recall was done today and patient advised to be on low calorie, low carbohydrate diet. Restrict calories to less than 1500 kcal in 24 hours. Low glycemic index foods and encouraged. Meal replacements were recommended. Advised to use irwj-bhy-wwsxgka multivitamins and vitamin D. Advised to use calorie counter and adhere to portion control. Monthly goal is to lose 4-6 pounds Pharmacotherapy. Continue on Zepbound 5MG/0.5ML weekly, He is not interested in increasing the dosage now as he worries about possible side effects, he prefers to stay on the current dosage for now. Side effects explained to the patient. Goal is to lose 3-5% of body weight in 3 months. Exercise. Patient encouraged to increase frequency, intensity and duration of exercise. Encouraged to burn at least 250-500 kcal in one session. Also encouraged to do weight training Assess. Different risk factors discussed with the patient and addressed Advise. Patient was given clear And specific advise that she will comply with Low-calorie diet and try not to exceed more than 1300 kcal in 24 hours. Agree. Mutually agreed to work together to achieve appropriate goals Assist. Motivational interviewing done. Arrange. Follow-up appointment arranged. Counseling. 20 minutes spent Face to face with the patient more than 50% of time was spent counseling Anxiety - He has not noticed much difference on sertraline 25mg, we have increased the dosage to 50 mg. Recommended consulting with a therapy. Will follow up in 4 weeks Hyperlipidemia: - ASCVD score of 1.5%. He has been taken Zetia for high triglyceride. Barney supplements are recommended given combined hyperlipidemia. Will check lipid panel and make recommendations based on that. I have advised on continuation on diet modification with decreasing carb intake and increasing fibers. General health concerns discussed with patient I have rendered the services for this patient under direct supervision of Dr. Fernandez, who did not see the patient but was available upon request 10/09/2024 Morbid (severe) obesity due to excess calories (ICD-10 - E66.01) Mr. Tolentino is a 38-year-old gentleman with testicular hypofunction and morbid obesity here for medical weight management. We saw him in June. He lost 22 lbs since last visit. Plan is as follows: Dietary recommendations. Food recall was done today and patient advised to be on low calorie, low carbohydrate diet. Restrict calories to less than 1500 kcal in 24 hours. Low glycemic index foods and encouraged. Meal replacements were recommended. Advised to use auzu-sxd-nfiohwy multivitamins and vitamin D. Advised to use calorie counter and adhere to portion control. Monthly goal is to lose 4-6 pounds Pharmacotherapy. Continue on Zepbound 5MG/0.5ML weekly, He is not interested in increasing the dosage now as he worries about possible side effects, he prefers to stay on the current dosage for now. Side effects explained to the patient. Goal is to lose 3-5% of body weight in 3 months. Exercise. Patient encouraged to increase frequency, intensity and duration of exercise. Encouraged to burn at least 250-500 kcal in one session. Also encouraged to do weight training Assess. Different risk factors discussed with the patient and addressed Advise. Patient was given clear And specific advise that she will comply with Low-calorie diet and try not to exceed more than 1300 kcal in 24 hours. Agree. Mutually agreed to work together to achieve appropriate goals Assist. Motivational interviewing done. Arrange. Follow-up appointment arranged. Counseling. 20 minutes spent Face to face with the patient more than 50% of time was spent counseling Anxiety - He has not noticed much difference on sertraline 25mg, we have increased the dosage to 50 mg. Recommended consulting with a therapy. Will follow up in 4 weeks Hyperlipidemia: - ASCVD score of 1.5%. He has been taken Zetia for high triglyceride. Barney supplements are recommended given combined hyperlipidemia. Will check lipid panel and make recommendations based on that. I have advised on continuation on diet modification with decreasing carb intake and increasing fibers. Bilateral carpal tunnel syndrome. He is given referrals to hand surgery Left foot plantar fasciitis. X-ray of the left foot to rule out bony spurs and he can use uafe-kpl-fpcijgi heel pads Alcohol dependence. Discussed complications of alcohol and abstinence encouraged. Nicotine dependence. Encouraged smoking cessation. Is not ready to quit at this point 10/09/2024 Anxiety (ICD-10 - F41.9) Mr. Tolentino is a 38-year-old gentleman with testicular hypofunction and morbid obesity here for medical weight management. We saw him in June. He lost 22 lbs since last visit. Plan is as follows: Dietary recommendations. Food recall was done today and patient advised to be on low calorie, low carbohydrate diet. Restrict calories to less than 1500 kcal in 24 hours. Low glycemic index foods and encouraged. Meal replacements were recommended. Advised to use umul-kqa-itglquj multivitamins and vitamin D. Advised to use calorie counter and adhere to portion control. Monthly goal is to lose 4-6 pounds Pharmacotherapy. Continue on Zepbound 5MG/0.5ML weekly, He is not interested in increasing the dosage now as he worries about possible side effects, he prefers to stay on the current dosage for now. Side effects explained to the patient. Goal is to lose 3-5% of body weight in 3 months. Exercise. Patient encouraged to increase frequency, intensity and duration of exercise. Encouraged to burn at least 250-500 kcal in one session. Also encouraged to do weight training Assess. Different risk factors discussed with the patient and addressed Advise. Patient was given clear And specific advise that she will comply with Low-calorie diet and try not to exceed more than 1300 kcal in 24 hours. Agree. Mutually agreed to work together to achieve appropriate goals Assist. Motivational interviewing done. Arrange. Follow-up appointment arranged. Counseling. 20 minutes spent Face to face with the patient more than 50% of time was spent counseling Anxiety - He has not noticed much difference on sertraline 25mg, we have increased the dosage to 50 mg. Recommended consulting with a therapy. Will follow up in 4 weeks Hyperlipidemia: - ASCVD score of 1.5%. He has been taken Zetia for high triglyceride. Barney supplements are recommended given combined hyperlipidemia. Will check lipid panel and make recommendations based on that. I have advised on continuation on diet modification with decreasing carb intake and increasing fibers. Bilateral carpal tunnel syndrome. He is given referrals to hand surgery Left foot plantar fasciitis. X-ray of the left foot to rule out bony spurs and he can use dryv-aww-hvuptbb heel pads Alcohol dependence. Discussed complications of alcohol and abstinence encouraged. Nicotine dependence. Encouraged smoking cessation. Is not ready to quit at this point 11/06/2024 Morbid (severe) obesity due to excess calories (ICD-10 - E66.01) Mr. Tolentino is a 38-year-old gentleman with testicular hypofunction and morbid obesity here for medical weight management. We saw him in June. He lost 22 lbs since last visit. Plan is as follows: Dietary recommendations. Food recall was done today and patient advised to be on low calorie, low carbohydrate diet. Restrict calories to less than 1500 kcal in 24 hours. Low glycemic index foods and encouraged. Meal replacements were recommended. Advised to use igwk-bgh-qyyekno multivitamins and vitamin D. Advised to use calorie counter and adhere to portion control. Monthly goal is to lose 4-6 pounds Pharmacotherapy. Continue on Zepbound 5MG/0.5ML weekly, He is not interested in increasing the dosage now as he worries about possible side effects, he prefers to stay on the current dosage for now. Side effects explained to the patient. Goal is to lose 3-5% of body weight in 3 months. Exercise. Patient encouraged to increase frequency, intensity and duration of exercise. Encouraged to burn at least 250-500 kcal in one session. Also encouraged to do weight training Assess. Different risk factors discussed with the patient and addressed Advise. Patient was given clear And specific advise that she will comply with Low-calorie diet and try not to exceed more than 1300 kcal in 24 hours. Agree. Mutually agreed to work together to achieve appropriate goals Assist. Motivational interviewing done. Arrange. Follow-up appointment arranged. Counseling. 20 minutes spent Face to face with the patient more than 50% of time was spent counseling Anxiety - He has not noticed much difference on sertraline 25mg, we have increased the dosage to 50 mg. Recommended consulting with a therapy. Will follow up in 4 weeks Hyperlipidemia: - ASCVD score of 1.5%. He has been taken Zetia for high triglyceride. Barney supplements are recommended given combined hyperlipidemia. Will check lipid panel and make recommendations based on that. I have advised on continuation on diet modification with decreasing carb intake and increasing fibers. Bilateral carpal tunnel syndrome. He is given referrals to hand surgery Left foot plantar fasciitis. X-ray of the left foot to rule out bony spurs and he can use svkh-hhk-ybzllxh heel pads Alcohol dependence. Discussed complications of alcohol and abstinence encouraged. Nicotine dependence. Encouraged smoking cessation. Is not ready to quit at this point 11/06/2024 Anxiety (ICD-10 - F41.9) Mr. Tolentino is a 38-year-old gentleman with testicular hypofunction and morbid obesity here for medical weight management. We saw him in June. He lost 22 lbs since last visit. Plan is as follows: Dietary recommendations. Food recall was done today and patient advised to be on low calorie, low carbohydrate diet. Restrict calories to less than 1500 kcal in 24 hours. Low glycemic index foods and encouraged. Meal replacements were recommended. Advised to use xjms-vpa-yzknpeq multivitamins and vitamin D. Advised to use calorie counter and adhere to portion control. Monthly goal is to lose 4-6 pounds Pharmacotherapy. Continue on Zepbound 5MG/0.5ML weekly, He is not interested in increasing the dosage now as he worries about possible side effects, he prefers to stay on the current dosage for now. Side effects explained to the patient. Goal is to lose 3-5% of body weight in 3 months. Exercise. Patient encouraged to increase frequency, intensity and duration of exercise. Encouraged to burn at least 250-500 kcal in one session. Also encouraged to do weight training Assess. Different risk factors discussed with the patient and addressed Advise. Patient was given clear And specific advise that she will comply with Low-calorie diet and try not to exceed more than 1300 kcal in 24 hours. Agree. Mutually agreed to work together to achieve appropriate goals Assist. Motivational interviewing done. Arrange. Follow-up appointment arranged. Counseling. 20 minutes spent Face to face with the patient more than 50% of time was spent counseling Anxiety - He has not noticed much difference on sertraline 25mg, we have increased the dosage to 50 mg. Recommended consulting with a therapy. Will follow up in 4 weeks Hyperlipidemia: - ASCVD score of 1.5%. He has been taken Zetia for high triglyceride. Barney supplements are recommended given combined hyperlipidemia. Will check lipid panel and make recommendations based on that. I have advised on continuation on diet modification with decreasing carb intake and increasing fibers. Bilateral carpal tunnel syndrome. He is given referrals to hand surgery Left foot plantar fasciitis. X-ray of the left foot to rule out bony spurs and he can use aqlt-xwe-rereigz heel pads Alcohol dependence. Discussed complications of alcohol and abstinence encouraged. Nicotine dependence. Encouraged smoking cessation. Is not ready to quit at this point 06/28/2024 Anxiety (ICD-10 - F41.9) Mr. Tolentino is a 38-year-old gentleman with testicular hypofunction and morbid obesity here for dizziness. Plan as follows. Plan is as follows: Dizziness: - Had prior URI then he started experiencing dizziness. Only experienced two episodes. Triggered by head movement. Denies neuro deficits, no cardiac sxs. PE was negative for Romberg, negative darion-hillpike, no neuro deficit, no nystagmus, strength/sensation intact UE/KAYLEE BL, no swelling of the feet, Lungs CTAB. - DDX: Vertigo/ labyrinthitis secondary to URI, anxiety. - He defers starting on meclizine for vertigo. Alcohol dependence. Discussed complications of alcohol intake and advised to cut back. -He is started on campral, clonidine. - He binges on drinking etoh more than 10 drinks every 3 days. Per patient he usually experiences withdrawal sxs. I will start patient on Librium to avoid withdrawal sxs. - Check labs to r/o abnormalities FLORA: - Non-compliant with CPAP. Advised on adherence. Complications have been discussed. General health concerns discussed with patient. I have rendered the services for this patient under direct supervision of Dr. Fernandez, but was consulted 09/04/2024 Anxiety (ICD-10 - F41.9) Mr. Tolentino is a 38-year-old gentleman with testicular hypofunction and morbid obesity here for medical weight management. We saw him in June. He lost 22 lbs since last visit. Plan is as follows: Dietary recommendations. Food recall was done today and patient advised to be on low calorie, low carbohydrate diet. Restrict calories to less than 1500 kcal in 24 hours. Low glycemic index foods and encouraged. Meal replacements were recommended. Advised to use kvzu-kmu-uffdrwi multivitamins and vitamin D. Advised to use calorie counter and adhere to portion control. Monthly goal is to lose 4-6 pounds Pharmacotherapy. Continue on Zepbound 5MG/0.5ML weekly, He is not interested in increasing the dosage now as he worries about possible side effects, he prefers to stay on the current dosage for now. Side effects explained to the patient. Goal is to lose 3-5% of body weight in 3 months. Exercise. Patient encouraged to increase frequency, intensity and duration of exercise. Encouraged to burn at least 250-500 kcal in one session. Also encouraged to do weight training Assess. Different risk factors discussed with the patient and addressed Advise. Patient was given clear And specific advise that she will comply with Low-calorie diet and try not to exceed more than 1300 kcal in 24 hours. Agree. Mutually agreed to work together to achieve appropriate goals Assist. Motivational interviewing done. Arrange. Follow-up appointment arranged. Counseling. 20 minutes spent Face to face with the patient more than 50% of time was spent counseling Anxiety - He has not noticed much difference on sertraline 25mg, we have increased the dosage to 50 mg. Recommended consulting with a therapy. Will follow up in 4 weeks Hyperlipidemia: - ASCVD score of 1.5%. He has been taken Zetia for high triglyceride. Barney supplements are recommended given combined hyperlipidemia. Will check lipid panel and make recommendations based on that. I have advised on continuation on diet modification with decreasing carb intake and increasing fibers. General health concerns discussed with patient I have rendered the services for this patient under direct supervision of Dr. Fernandez, who did not see the patient but was available upon request 11/06/2024 Carpal tunnel syndrome, bilateral upper limbs (ICD-10 - G56.03) Mr. Tolentino is a 38-year-old gentleman with testicular hypofunction and morbid obesity here for medical weight management. We saw him in June. He lost 22 lbs since last visit. Plan is as follows: Dietary recommendations. Food recall was done today and patient advised to be on low calorie, low carbohydrate diet. Restrict calories to less than 1500 kcal in 24 hours. Low glycemic index foods and encouraged. Meal replacements were recommended. Advised to use ryze-uxk-frewtce multivitamins and vitamin D. Advised to use calorie counter and adhere to portion control. Monthly goal is to lose 4-6 pounds Pharmacotherapy. Continue on Zepbound 5MG/0.5ML weekly, He is not interested in increasing the dosage now as he worries about possible side effects, he prefers to stay on the current dosage for now. Side effects explained to the patient. Goal is to lose 3-5% of body weight in 3 months. Exercise. Patient encouraged to increase frequency, intensity and duration of exercise. Encouraged to burn at least 250-500 kcal in one session. Also encouraged to do weight training Assess. Different risk factors discussed with the patient and addressed Advise. Patient was given clear And specific advise that she will comply with Low-calorie diet and try not to exceed more than 1300 kcal in 24 hours. Agree. Mutually agreed to work together to achieve appropriate goals Assist. Motivational interviewing done. Arrange. Follow-up appointment arranged. Counseling. 20 minutes spent Face to face with the patient more than 50% of time was spent counseling Anxiety - He has not noticed much difference on sertraline 25mg, we have increased the dosage to 50 mg. Recommended consulting with a therapy. Will follow up in 4 weeks Hyperlipidemia: - ASCVD score of 1.5%. He has been taken Zetia for high triglyceride. Barney supplements are recommended given combined hyperlipidemia. Will check lipid panel and make recommendations based on that. I have advised on continuation on diet modification with decreasing carb intake and increasing fibers. Bilateral carpal tunnel syndrome. He is given referrals to hand surgery Left foot plantar fasciitis. X-ray of the left foot to rule out bony spurs and he can use pswc-tut-pgndimr heel pads Alcohol dependence. Discussed complications of alcohol and abstinence encouraged. Nicotine dependence. Encouraged smoking cessation. Is not ready to quit at this point 10/09/2024 Hyperlipidemia, unspecified (ICD-10 - E78.5) Mr. Tolentino is a 38-year-old gentleman with testicular hypofunction and morbid obesity here for medical weight management. We saw him in June. He lost 22 lbs since last visit. Plan is as follows: Dietary recommendations. Food recall was done today and patient advised to be on low calorie, low carbohydrate diet. Restrict calories to less than 1500 kcal in 24 hours. Low glycemic index foods and encouraged. Meal replacements were recommended. Advised to use ygaq-cmo-oymjbie multivitamins and vitamin D. Advised to use calorie counter and adhere to portion control. Monthly goal is to lose 4-6 pounds Pharmacotherapy. Continue on Zepbound 5MG/0.5ML weekly, He is not interested in increasing the dosage now as he worries about possible side effects, he prefers to stay on the current dosage for now. Side effects explained to the patient. Goal is to lose 3-5% of body weight in 3 months. Exercise. Patient encouraged to increase frequency, intensity and duration of exercise. Encouraged to burn at least 250-500 kcal in one session. Also encouraged to do weight training Assess. Different risk factors discussed with the patient and addressed Advise. Patient was given clear And specific advise that she will comply with Low-calorie diet and try not to exceed more than 1300 kcal in 24 hours. Agree. Mutually agreed to work together to achieve appropriate goals Assist. Motivational interviewing done. Arrange. Follow-up appointment arranged. Counseling. 20 minutes spent Face to face with the patient more than 50% of time was spent counseling Anxiety - He has not noticed much difference on sertraline 25mg, we have increased the dosage to 50 mg. Recommended consulting with a therapy. Will follow up in 4 weeks Hyperlipidemia: - ASCVD score of 1.5%. He has been taken Zetia for high triglyceride. Barney supplements are recommended given combined hyperlipidemia. Will check lipid panel and make recommendations based on that. I have advised on continuation on diet modification with decreasing carb intake and increasing fibers. Bilateral carpal tunnel syndrome. He is given referrals to hand surgery Left foot plantar fasciitis. X-ray of the left foot to rule out bony spurs and he can use xbct-ytb-sprwyzj heel pads Alcohol dependence. Discussed complications of alcohol and abstinence encouraged. Nicotine dependence. Encouraged smoking cessation. Is not ready to quit at this point 07/24/2024 Hidradenitis suppurativa (ICD-10 - L73.2) Mr. Tolentino is a 38-year-old gentleman with testicular hypofunction and morbid obesity here for medical weight management. We saw him in June. He lost 7 lbs since last visit. Plan is as follows: Dietary recommendations. Food recall was done today and patient advised to be on low calorie, low carbohydrate diet. Restrict calories to less than 1500 kcal in 24 hours. Low glycemic index foods and encouraged. Meal replacements were recommended. Advised to use vole-tun-tdmwaei multivitamins and vitamin D. Advised to use calorie counter and adhere to portion control. Monthly goal is to lose 4-6 pounds Pharmacotherapy. Continue on Zepbound 2.5MG/0.5ML weekly and titrate up after 4 weeks. Side effects explained to the patient. Goal is to lose 3-5% of body weight in 3 months. Exercise. Patient encouraged to increase frequency, intensity and duration of exercise. Encouraged to burn at least 250-500 kcal in one session. Also encouraged to do weight training Assess. Different risk factors discussed with the patient and addressed Advise. Patient was given clear And specific advise that she will comply with Low-calorie diet and try not to exceed more than 1300 kcal in 24 hours. Agree. Mutually agreed to work together to achieve appropriate goals Assist. Motivational interviewing done. Arrange. Follow-up appointment arranged. Counseling. 20 minutes spent Face to face with the patient more than 50% of time was spent counseling General health concerns discussed with patient. Scribe services used to formulate this note under HIPAA compliance and under [place] law mandated for scribe services. Patient aware of service. Verbal consent and written consent taken from the patient. Patient understands and verbalizes understanding of the scribes services and all questions answered regarding scribes services. Patient agrees to use of scribes services. 12/07/2023 Constipation, unspecified (ICD-10 - K59.00) Mr. Tolentino is a 38-year-old gentleman with testicular hypofunction and morbid obesity here for follow up. Plan is as follows: Dietary recommendations. Food recall was done today and patient advised to be on low calorie, low carbohydrate diet. Restrict calories to less than 1500 kcal in 24 hours. Low glycemic index foods and encouraged. Meal replacements were recommended. Advised to use rqjt-ddz-cdurqfo multivitamins and vitamin D. Advised to use calorie counter and adhere to portion control. Monthly goal is to lose 4-6 pounds Pharmacotherapy. Continue Ozempic (0.25 or 0.5 MG/DOSE) 2 MG/1.5ML weekly and Naltrexone 50 MG. Side effects explained to the patient. Goal is to lose 3-5% of body weight in 3 months. Exercise. Patient encouraged to increase frequency, intensity and duration of exercise. Encouraged to burn at least 250-500 kcal in one session. Also encouraged to do weight training Assess. Different risk factors discussed with the patient and addressed Advise. Patient was given clear And specific advise that she will comply with Low-calorie diet and try not to exceed more than 1300 kcal in 24 hours. Agree. Mutually agreed to work together to achieve appropriate goals Assist. Motivational interviewing done. Arrange. Follow-up appointment arranged. Counseling. 20 minutes spent Face to face with the patient more than 50% of time was spent counseling Alcohol dependence. Discussed complications of alcohol intake and advised to cut back. He was started on naltrexone which will help with alcohol cessation and weight loss Nicotine dependence. He is still currently smoking and cessation advised. Paresthesia of skin. Start Gabapentin 300 MG once a day Erectile dysfunction. Cialis 5 mg 1 tablet take half an hour before going to bed. Side effects discussed with the patient General health concerns discussed with patient. Scribe services used to formulate this note under HIPAA compliance and under [place] law mandated for scribe services. Patient aware of service. Verbal consent and written consent taken from the patient. Patient understands and verbalizes understanding of the scribes services and all questions answered regarding scribes services. Patient agrees to use of scribes services. 06/05/2024 Dietary counseling and surveillance (ICD-10 - Z71.3) Mr. Tolentino is a 38-year-old gentleman with testicular hypofunction and morbid obesity here for follow up.We saw him in January. No weight change since last visit. Plan is as follows: Dietary recommendations. Food recall was done today and patient advised to be on low calorie, low carbohydrate diet. Restrict calories to less than 1500 kcal in 24 hours. Low glycemic index foods and encouraged. Meal replacements were recommended. Advised to use kuix-lkd-tepfnar multivitamins and vitamin D. Advised to use calorie counter and adhere to portion control. Monthly goal is to lose 4-6 pounds Pharmacotherapy. Start Zepbound Solution Auto-injector, 2.5 MG/0.5ML, Side effects explained to the patient. Goal is to lose 3-5% of body weight in 3 months. Exercise. Patient encouraged to increase frequency, intensity and duration of exercise. Encouraged to burn at least 250-500 kcal in one session. Also encouraged to do weight training Assess. Different risk factors discussed with the patient and addressed Advise. Patient was given clear And specific advise that she will comply with Low-calorie diet and try not to exceed more than 1300 kcal in 24 hours. Agree. Mutually agreed to work together to achieve appropriate goals Assist. Motivational interviewing done. Arrange. Follow-up appointment arranged. Counseling. 20 minutes spent Face to face with the patient more than 50% of time was spent counseling Alcohol dependence. Discussed complications of alcohol intake and advised to cut back. He was started on naltrexone which will help with alcohol cessation and weight loss Nicotine dependence. He is still currently smoking and cessation advised. DDD/back pain. He takes Gabapentin 300 MG once a day.Start tizanidine 4 MG and meloxicam 15 MG once a day. He wants to have [place] paperwork for intermittent flareups. He is not interested in physical therapy and is doing home exercises. General health concerns discussed with patient. Scribe services used to formulate this note under HIPAA compliance and under [place] law mandated for scribe services. Patient aware of service. Verbal consent and written consent taken from the patient. Patient understands and verbalizes understanding of the scribes services and all questions answered regarding scribes services. Patient agrees to use of scribes services. 02/01/2024 Alcohol dependence, uncomplicated (ICD-10 - F10.20) Mr. Tolentino is a 38-year-old gentleman with testicular hypofunction and morbid obesity here for follow up. We saw him in January. No weight change since last visit. Plan is as follows: Dietary recommendations. Food recall was done today and patient advised to be on low calorie, low carbohydrate diet. Restrict calories to less than 1500 kcal in 24 hours. Low glycemic index foods and encouraged. Meal replacements were recommended. Advised to use hdut-iyv-ngyuayj multivitamins and vitamin D. Advised to use calorie counter and adhere to portion control. Monthly goal is to lose 4-6 pounds Pharmacotherapy. His Ozempic (0.25 or 0.5 MG/DOSE) 2 MG/1.5ML was denied by his insurance because he is not diabetic. Start Wegovy 2.4 MG/0.75ML and continue Naltrexone 50 MG. Side effects explained to the patient. Goal is to lose 3-5% of body weight in 3 months. Exercise. Patient encouraged to increase frequency, intensity and duration of exercise. Encouraged to burn at least 250-500 kcal in one session. Also encouraged to do weight training Assess. Different risk factors discussed with the patient and addressed Advise. Patient was given clear And specific advise that she will comply with Low-calorie diet and try not to exceed more than 1300 kcal in 24 hours. Agree. Mutually agreed to work together to achieve appropriate goals Assist. Motivational interviewing done. Arrange. Follow-up appointment arranged. Counseling. 20 minutes spent Face to face with the patient more than 50% of time was spent counseling Alcohol dependence. Discussed complications of alcohol intake and advised to cut back. He was started on naltrexone which will help with alcohol cessation and weight loss Nicotine dependence. He is still currently smoking and cessation advised. DDD. He takes Gabapentin 300 MG once a day. Screening blood work before next appointment. General health concerns discussed with patient. Scribe services used to formulate this note under HIPAA compliance and under [place] law mandated for scribe services. Patient aware of service. Verbal consent and written consent taken from the patient. Patient understands and verbalizes understanding of the scribes services and all questions answered regarding scribes services. Patient agrees to use of scribes services. 01/04/2024 Alcohol dependence, uncomplicated (ICD-10 - F10.20) Mr. Tolentino is a 38-year-old gentleman with testicular hypofunction and morbid obesity here for follow up. We saw him in December. He lost 7 lbs since last visit. Plan is as follows: Dietary recommendations. Food recall was done today and patient advised to be on low calorie, low carbohydrate diet. Restrict calories to less than 1500 kcal in 24 hours. Low glycemic index foods and encouraged. Meal replacements were recommended. Advised to use khjj-ais-tirjbbs multivitamins and vitamin D. Advised to use calorie counter and adhere to portion control. Monthly goal is to lose 4-6 pounds Pharmacotherapy. Continue Ozempic (0.25 or 0.5 MG/DOSE) 2 MG/1.5ML weekly and Naltrexone 50 MG. Side effects explained to the patient. Goal is to lose 3-5% of body weight in 3 months. Exercise. Patient encouraged to increase frequency, intensity and duration of exercise. Encouraged to burn at least 250-500 kcal in one session. Also encouraged to do weight training Assess. Different risk factors discussed with the patient and addressed Advise. Patient was given clear And specific advise that she will comply with Low-calorie diet and try not to exceed more than 1300 kcal in 24 hours. Agree. Mutually agreed to work together to achieve appropriate goals Assist. Motivational interviewing done. Arrange. Follow-up appointment arranged. Counseling. 20 minutes spent Face to face with the patient more than 50% of time was spent counseling Alcohol dependence. Discussed complications of alcohol intake and advised to cut back. He was started on naltrexone which will help with alcohol cessation and weight loss Nicotine dependence. He is still currently smoking and cessation advised. DDD. He takes Gabapentin 300 MG once a day. Screening blood work before next appointment. General health concerns discussed with patient. Scribe services used to formulate this note under HIPAA compliance and under [place] law mandated for scribe services. Patient aware of service. Verbal consent and written consent taken from the patient. Patient understands and verbalizes understanding of the scribes services and all questions answered regarding scribes services. Patient agrees to use of scribes services. 01/04/2024 Nicotine dependence, cigarettes, uncomplicated (ICD-10 - F17.210) Mr. Tolentino is a 38-year-old gentleman with testicular hypofunction and morbid obesity here for follow up. We saw him in December. He lost 7 lbs since last visit. Plan is as follows: Dietary recommendations. Food recall was done today and patient advised to be on low calorie, low carbohydrate diet. Restrict calories to less than 1500 kcal in 24 hours. Low glycemic index foods and encouraged. Meal replacements were recommended. Advised to use aihs-fyf-dushvoo multivitamins and vitamin D. Advised to use calorie counter and adhere to portion control. Monthly goal is to lose 4-6 pounds Pharmacotherapy. Continue Ozempic (0.25 or 0.5 MG/DOSE) 2 MG/1.5ML weekly and Naltrexone 50 MG. Side effects explained to the patient. Goal is to lose 3-5% of body weight in 3 months. Exercise. Patient encouraged to increase frequency, intensity and duration of exercise. Encouraged to burn at least 250-500 kcal in one session. Also encouraged to do weight training Assess. Different risk factors discussed with the patient and addressed Advise. Patient was given clear And specific advise that she will comply with Low-calorie diet and try not to exceed more than 1300 kcal in 24 hours. Agree. Mutually agreed to work together to achieve appropriate goals Assist. Motivational interviewing done. Arrange. Follow-up appointment arranged. Counseling. 20 minutes spent Face to face with the patient more than 50% of time was spent counseling Alcohol dependence. Discussed complications of alcohol intake and advised to cut back. He was started on naltrexone which will help with alcohol cessation and weight loss Nicotine dependence. He is still currently smoking and cessation advised. DDD. He takes Gabapentin 300 MG once a day. Screening blood work before next appointment. General health concerns discussed with patient. Scribe services used to formulate this note under HIPAA compliance and under [place] law mandated for scribe services. Patient aware of service. Verbal consent and written consent taken from the patient. Patient understands and verbalizes understanding of the scribes services and all questions answered regarding scribes services. Patient agrees to use of scribes services. 02/01/2024 Nicotine dependence, cigarettes, uncomplicated (ICD-10 - F17.210) Mr. Tolentino is a 38-year-old gentleman with testicular hypofunction and morbid obesity here for follow up. We saw him in January. No weight change since last visit. Plan is as follows: Dietary recommendations. Food recall was done today and patient advised to be on low calorie, low carbohydrate diet. Restrict calories to less than 1500 kcal in 24 hours. Low glycemic index foods and encouraged. Meal replacements were recommended. Advised to use hurm-vqb-hzyybod multivitamins and vitamin D. Advised to use calorie counter and adhere to portion control. Monthly goal is to lose 4-6 pounds Pharmacotherapy. His Ozempic (0.25 or 0.5 MG/DOSE) 2 MG/1.5ML was denied by his insurance because he is not diabetic. Start Wegovy 2.4 MG/0.75ML and continue Naltrexone 50 MG. Side effects explained to the patient. Goal is to lose 3-5% of body weight in 3 months. Exercise. Patient encouraged to increase frequency, intensity and duration of exercise. Encouraged to burn at least 250-500 kcal in one session. Also encouraged to do weight training Assess. Different risk factors discussed with the patient and addressed Advise. Patient was given clear And specific advise that she will comply with Low-calorie diet and try not to exceed more than 1300 kcal in 24 hours. Agree. Mutually agreed to work together to achieve appropriate goals Assist. Motivational interviewing done. Arrange. Follow-up appointment arranged. Counseling. 20 minutes spent Face to face with the patient more than 50% of time was spent counseling Alcohol dependence. Discussed complications of alcohol intake and advised to cut back. He was started on naltrexone which will help with alcohol cessation and weight loss Nicotine dependence. He is still currently smoking and cessation advised. DDD. He takes Gabapentin 300 MG once a day. Screening blood work before next appointment. General health concerns discussed with patient. Scribe services used to formulate this note under HIPAA compliance and under [place] law mandated for scribe services. Patient aware of service. Verbal consent and written consent taken from the patient. Patient understands and verbalizes understanding of the scribes services and all questions answered regarding scribes services. Patient agrees to use of scribes services. 12/07/2023 Alcohol dependence, uncomplicated (ICD-10 - F10.20) Mr. Tolentino is a 38-year-old gentleman with testicular hypofunction and morbid obesity here for follow up. Plan is as follows: Dietary recommendations. Food recall was done today and patient advised to be on low calorie, low carbohydrate diet. Restrict calories to less than 1500 kcal in 24 hours. Low glycemic index foods and encouraged. Meal replacements were recommended. Advised to use krvz-khl-qorlggy multivitamins and vitamin D. Advised to use calorie counter and adhere to portion control. Monthly goal is to lose 4-6 pounds Pharmacotherapy. Continue Ozempic (0.25 or 0.5 MG/DOSE) 2 MG/1.5ML weekly and Naltrexone 50 MG. Side effects explained to the patient. Goal is to lose 3-5% of body weight in 3 months. Exercise. Patient encouraged to increase frequency, intensity and duration of exercise. Encouraged to burn at least 250-500 kcal in one session. Also encouraged to do weight training Assess. Different risk factors discussed with the patient and addressed Advise. Patient was given clear And specific advise that she will comply with Low-calorie diet and try not to exceed more than 1300 kcal in 24 hours. Agree. Mutually agreed to work together to achieve appropriate goals Assist. Motivational interviewing done. Arrange. Follow-up appointment arranged. Counseling. 20 minutes spent Face to face with the patient more than 50% of time was spent counseling Alcohol dependence. Discussed complications of alcohol intake and advised to cut back. He was started on naltrexone which will help with alcohol cessation and weight loss Nicotine dependence. He is still currently smoking and cessation advised. Paresthesia of skin. Start Gabapentin 300 MG once a day Erectile dysfunction. Cialis 5 mg 1 tablet take half an hour before going to bed. Side effects discussed with the patient General health concerns discussed with patient. Scribe services used to formulate this note under HIPAA compliance and under [place] law mandated for scribe services. Patient aware of service. Verbal consent and written consent taken from the patient. Patient understands and verbalizes understanding of the scribes services and all questions answered regarding scribes services. Patient agrees to use of scribes services. 06/28/2024 Obstructive sleep apnea (adult) (pediatric) (ICD-10 - G47.33) Mr. Tolentino is a 38-year-old gentleman with testicular hypofunction and morbid obesity here for dizziness. Plan as follows. Plan is as follows: Dizziness: - Had prior URI then he started experiencing dizziness. Only experienced two episodes. Triggered by head movement. Denies neuro deficits, no cardiac sxs. PE was negative for Romberg, negative darion-hillpike, no neuro deficit, no nystagmus, strength/sensation intact UE/KAYLEE BL, no swelling of the feet, Lungs CTAB. - DDX: Vertigo/ labyrinthitis secondary to URI, anxiety. - He defers starting on meclizine for vertigo. Alcohol dependence. Discussed complications of alcohol intake and advised to cut back. -He is started on campral, clonidine. - He binges on drinking etoh more than 10 drinks every 3 days. Per patient he usually experiences withdrawal sxs. I will start patient on Librium to avoid withdrawal sxs. - Check labs to r/o abnormalities FLORA: - Non-compliant with CPAP. Advised on adherence. Complications have been discussed. General health concerns discussed with patient. I have rendered the services for this patient under direct supervision of Dr. Fernandez, but was consulted 07/24/2024 Dietary counseling and surveillance (ICD-10 - Z71.3) Mr. Tolentino is a 38-year-old gentleman with testicular hypofunction and morbid obesity here for medical weight management. We saw him in June. He lost 7 lbs since last visit. Plan is as follows: Dietary recommendations. Food recall was done today and patient advised to be on low calorie, low carbohydrate diet. Restrict calories to less than 1500 kcal in 24 hours. Low glycemic index foods and encouraged. Meal replacements were recommended. Advised to use jjnm-pxf-ofnxsil multivitamins and vitamin D. Advised to use calorie counter and adhere to portion control. Monthly goal is to lose 4-6 pounds Pharmacotherapy. Continue on Zepbound 2.5MG/0.5ML weekly and titrate up after 4 weeks. Side effects explained to the patient. Goal is to lose 3-5% of body weight in 3 months. Exercise. Patient encouraged to increase frequency, intensity and duration of exercise. Encouraged to burn at least 250-500 kcal in one session. Also encouraged to do weight training Assess. Different risk factors discussed with the patient and addressed Advise. Patient was given clear And specific advise that she will comply with Low-calorie diet and try not to exceed more than 1300 kcal in 24 hours. Agree. Mutually agreed to work together to achieve appropriate goals Assist. Motivational interviewing done. Arrange. Follow-up appointment arranged. Counseling. 20 minutes spent Face to face with the patient more than 50% of time was spent counseling General health concerns discussed with patient. Scribe services used to formulate this note under HIPAA compliance and under [place] law mandated for scribe services. Patient aware of service. Verbal consent and written consent taken from the patient. Patient understands and verbalizes understanding of the scribes services and all questions answered regarding scribes services. Patient agrees to use of scribes services. 09/04/2024 Hyperlipidemia, unspecified (ICD-10 - E78.5) Mr. Tolentino is a 38-year-old gentleman with testicular hypofunction and morbid obesity here for medical weight management. We saw him in June. He lost 22 lbs since last visit. Plan is as follows: Dietary recommendations. Food recall was done today and patient advised to be on low calorie, low carbohydrate diet. Restrict calories to less than 1500 kcal in 24 hours. Low glycemic index foods and encouraged. Meal replacements were recommended. Advised to use yflr-mre-xnyxfds multivitamins and vitamin D. Advised to use calorie counter and adhere to portion control. Monthly goal is to lose 4-6 pounds Pharmacotherapy. Continue on Zepbound 5MG/0.5ML weekly, He is not interested in increasing the dosage now as he worries about possible side effects, he prefers to stay on the current dosage for now. Side effects explained to the patient. Goal is to lose 3-5% of body weight in 3 months. Exercise. Patient encouraged to increase frequency, intensity and duration of exercise. Encouraged to burn at least 250-500 kcal in one session. Also encouraged to do weight training Assess. Different risk factors discussed with the patient and addressed Advise. Patient was given clear And specific advise that she will comply with Low-calorie diet and try not to exceed more than 1300 kcal in 24 hours. Agree. Mutually agreed to work together to achieve appropriate goals Assist. Motivational interviewing done. Arrange. Follow-up appointment arranged. Counseling. 20 minutes spent Face to face with the patient more than 50% of time was spent counseling Anxiety - He has not noticed much difference on sertraline 25mg, we have increased the dosage to 50 mg. Recommended consulting with a therapy. Will follow up in 4 weeks Hyperlipidemia: - ASCVD score of 1.5%. He has been taken Zetia for high triglyceride. Barney supplements are recommended given combined hyperlipidemia. Will check lipid panel and make recommendations based on that. I have advised on continuation on diet modification with decreasing carb intake and increasing fibers. General health concerns discussed with patient I have rendered the services for this patient under direct supervision of Dr. Fernandez, who did not see the patient but was available upon request 10/09/2024 Plantar fascial fibromatosis (ICD-10 - M72.2) Mr. Tolentino is a 38-year-old gentleman with testicular hypofunction and morbid obesity here for medical weight management. We saw him in June. He lost 22 lbs since last visit. Plan is as follows: Dietary recommendations. Food recall was done today and patient advised to be on low calorie, low carbohydrate diet. Restrict calories to less than 1500 kcal in 24 hours. Low glycemic index foods and encouraged. Meal replacements were recommended. Advised to use eubc-rkp-xmnizin multivitamins and vitamin D. Advised to use calorie counter and adhere to portion control. Monthly goal is to lose 4-6 pounds Pharmacotherapy. Continue on Zepbound 5MG/0.5ML weekly, He is not interested in increasing the dosage now as he worries about possible side effects, he prefers to stay on the current dosage for now. Side effects explained to the patient. Goal is to lose 3-5% of body weight in 3 months. Exercise. Patient encouraged to increase frequency, intensity and duration of exercise. Encouraged to burn at least 250-500 kcal in one session. Also encouraged to do weight training Assess. Different risk factors discussed with the patient and addressed Advise. Patient was given clear And specific advise that she will comply with Low-calorie diet and try not to exceed more than 1300 kcal in 24 hours. Agree. Mutually agreed to work together to achieve appropriate goals Assist. Motivational interviewing done. Arrange. Follow-up appointment arranged. Counseling. 20 minutes spent Face to face with the patient more than 50% of time was spent counseling Anxiety - He has not noticed much difference on sertraline 25mg, we have increased the dosage to 50 mg. Recommended consulting with a therapy. Will follow up in 4 weeks Hyperlipidemia: - ASCVD score of 1.5%. He has been taken Zetia for high triglyceride. Barney supplements are recommended given combined hyperlipidemia. Will check lipid panel and make recommendations based on that. I have advised on continuation on diet modification with decreasing carb intake and increasing fibers. Bilateral carpal tunnel syndrome. He is given referrals to hand surgery Left foot plantar fasciitis. X-ray of the left foot to rule out bony spurs and he can use xvlw-lqf-ftyixlo heel pads Alcohol dependence. Discussed complications of alcohol and abstinence encouraged. Nicotine dependence. Encouraged smoking cessation. Is not ready to quit at this point 11/06/2024 Carpal tunnel syndrome, left upper limb (ICD-10 - G56.02) Mr. Tolentino is a 38-year-old gentleman with testicular hypofunction and morbid obesity here for medical weight management. We saw him in June. He lost 22 lbs since last visit. Plan is as follows: Dietary recommendations. Food recall was done today and patient advised to be on low calorie, low carbohydrate diet. Restrict calories to less than 1500 kcal in 24 hours. Low glycemic index foods and encouraged. Meal replacements were recommended. Advised to use vkln-red-fxqxzto multivitamins and vitamin D. Advised to use calorie counter and adhere to portion control. Monthly goal is to lose 4-6 pounds Pharmacotherapy. Continue on Zepbound 5MG/0.5ML weekly, He is not interested in increasing the dosage now as he worries about possible side effects, he prefers to stay on the current dosage for now. Side effects explained to the patient. Goal is to lose 3-5% of body weight in 3 months. Exercise. Patient encouraged to increase frequency, intensity and duration of exercise. Encouraged to burn at least 250-500 kcal in one session. Also encouraged to do weight training Assess. Different risk factors discussed with the patient and addressed Advise. Patient was given clear And specific advise that she will comply with Low-calorie diet and try not to exceed more than 1300 kcal in 24 hours. Agree. Mutually agreed to work together to achieve appropriate goals Assist. Motivational interviewing done. Arrange. Follow-up appointment arranged. Counseling. 20 minutes spent Face to face with the patient more than 50% of time was spent counseling Anxiety - He has not noticed much difference on sertraline 25mg, we have increased the dosage to 50 mg. Recommended consulting with a therapy. Will follow up in 4 weeks Hyperlipidemia: - ASCVD score of 1.5%. He has been taken Zetia for high triglyceride. Barney supplements are recommended given combined hyperlipidemia. Will check lipid panel and make recommendations based on that. I have advised on continuation on diet modification with decreasing carb intake and increasing fibers. Bilateral carpal tunnel syndrome. He is given referrals to hand surgery Left foot plantar fasciitis. X-ray of the left foot to rule out bony spurs and he can use xwlp-vsh-solonjt heel pads Alcohol dependence. Discussed complications of alcohol and abstinence encouraged. Nicotine dependence. Encouraged smoking cessation. Is not ready to quit at this point 11/06/2024 Hidradenitis suppurativa (ICD-10 - L73.2) Mr. Tolentino is a 38-year-old gentleman with testicular hypofunction and morbid obesity here for medical weight management. We saw him in June. He lost 22 lbs since last visit. Plan is as follows: Dietary recommendations. Food recall was done today and patient advised to be on low calorie, low carbohydrate diet. Restrict calories to less than 1500 kcal in 24 hours. Low glycemic index foods and encouraged. Meal replacements were recommended. Advised to use urlq-man-oowmopp multivitamins and vitamin D. Advised to use calorie counter and adhere to portion control. Monthly goal is to lose 4-6 pounds Pharmacotherapy. Continue on Zepbound 5MG/0.5ML weekly, He is not interested in increasing the dosage now as he worries about possible side effects, he prefers to stay on the current dosage for now. Side effects explained to the patient. Goal is to lose 3-5% of body weight in 3 months. Exercise. Patient encouraged to increase frequency, intensity and duration of exercise. Encouraged to burn at least 250-500 kcal in one session. Also encouraged to do weight training Assess. Different risk factors discussed with the patient and addressed Advise. Patient was given clear And specific advise that she will comply with Low-calorie diet and try not to exceed more than 1300 kcal in 24 hours. Agree. Mutually agreed to work together to achieve appropriate goals Assist. Motivational interviewing done. Arrange. Follow-up appointment arranged. Counseling. 20 minutes spent Face to face with the patient more than 50% of time was spent counseling Anxiety - He has not noticed much difference on sertraline 25mg, we have increased the dosage to 50 mg. Recommended consulting with a therapy. Will follow up in 4 weeks Hyperlipidemia: - ASCVD score of 1.5%. He has been taken Zetia for high triglyceride. Barney supplements are recommended given combined hyperlipidemia. Will check lipid panel and make recommendations based on that. I have advised on continuation on diet modification with decreasing carb intake and increasing fibers. Bilateral carpal tunnel syndrome. He is given referrals to hand surgery Left foot plantar fasciitis. X-ray of the left foot to rule out bony spurs and he can use qkpg-zbb-uwbxvgm heel pads Alcohol dependence. Discussed complications of alcohol and abstinence encouraged. Nicotine dependence. Encouraged smoking cessation. Is not ready to quit at this point 10/09/2024 Carpal tunnel syndrome, bilateral upper limbs (ICD-10 - G56.03) Mr. Tolentino is a 38-year-old gentleman with testicular hypofunction and morbid obesity here for medical weight management. We saw him in June. He lost 22 lbs since last visit. Plan is as follows: Dietary recommendations. Food recall was done today and patient advised to be on low calorie, low carbohydrate diet. Restrict calories to less than 1500 kcal in 24 hours. Low glycemic index foods and encouraged. Meal replacements were recommended. Advised to use cstc-zdw-kncxlvp multivitamins and vitamin D. Advised to use calorie counter and adhere to portion control. Monthly goal is to lose 4-6 pounds Pharmacotherapy. Continue on Zepbound 5MG/0.5ML weekly, He is not interested in increasing the dosage now as he worries about possible side effects, he prefers to stay on the current dosage for now. Side effects explained to the patient. Goal is to lose 3-5% of body weight in 3 months. Exercise. Patient encouraged to increase frequency, intensity and duration of exercise. Encouraged to burn at least 250-500 kcal in one session. Also encouraged to do weight training Assess. Different risk factors discussed with the patient and addressed Advise. Patient was given clear And specific advise that she will comply with Low-calorie diet and try not to exceed more than 1300 kcal in 24 hours. Agree. Mutually agreed to work together to achieve appropriate goals Assist. Motivational interviewing done. Arrange. Follow-up appointment arranged. Counseling. 20 minutes spent Face to face with the patient more than 50% of time was spent counseling Anxiety - He has not noticed much difference on sertraline 25mg, we have increased the dosage to 50 mg. Recommended consulting with a therapy. Will follow up in 4 weeks Hyperlipidemia: - ASCVD score of 1.5%. He has been taken Zetia for high triglyceride. Barney supplements are recommended given combined hyperlipidemia. Will check lipid panel and make recommendations based on that. I have advised on continuation on diet modification with decreasing carb intake and increasing fibers. Bilateral carpal tunnel syndrome. He is given referrals to hand surgery Left foot plantar fasciitis. X-ray of the left foot to rule out bony spurs and he can use ucvv-qai-rzekzaj heel pads Alcohol dependence. Discussed complications of alcohol and abstinence encouraged. Nicotine dependence. Encouraged smoking cessation. Is not ready to quit at this point 12/07/2023 Nicotine dependence, cigarettes, uncomplicated (ICD-10 - F17.210) Mr. Tolentino is a 38-year-old gentleman with testicular hypofunction and morbid obesity here for follow up. Plan is as follows: Dietary recommendations. Food recall was done today and patient advised to be on low calorie, low carbohydrate diet. Restrict calories to less than 1500 kcal in 24 hours. Low glycemic index foods and encouraged. Meal replacements were recommended. Advised to use yumi-lqk-oumithq multivitamins and vitamin D. Advised to use calorie counter and adhere to portion control. Monthly goal is to lose 4-6 pounds Pharmacotherapy. Continue Ozempic (0.25 or 0.5 MG/DOSE) 2 MG/1.5ML weekly and Naltrexone 50 MG. Side effects explained to the patient. Goal is to lose 3-5% of body weight in 3 months. Exercise. Patient encouraged to increase frequency, intensity and duration of exercise. Encouraged to burn at least 250-500 kcal in one session. Also encouraged to do weight training Assess. Different risk factors discussed with the patient and addressed Advise. Patient was given clear And specific advise that she will comply with Low-calorie diet and try not to exceed more than 1300 kcal in 24 hours. Agree. Mutually agreed to work together to achieve appropriate goals Assist. Motivational interviewing done. Arrange. Follow-up appointment arranged. Counseling. 20 minutes spent Face to face with the patient more than 50% of time was spent counseling Alcohol dependence. Discussed complications of alcohol intake and advised to cut back. He was started on naltrexone which will help with alcohol cessation and weight loss Nicotine dependence. He is still currently smoking and cessation advised. Paresthesia of skin. Start Gabapentin 300 MG once a day Erectile dysfunction. Cialis 5 mg 1 tablet take half an hour before going to bed. Side effects discussed with the patient General health concerns discussed with patient. Scribe services used to formulate this note under HIPAA compliance and under [place] law mandated for scribe services. Patient aware of service. Verbal consent and written consent taken from the patient. Patient understands and verbalizes understanding of the scribes services and all questions answered regarding scribes services. Patient agrees to use of scribes services. 02/01/2024 Other intervertebral disc degeneration, thoracolumbar region (ICD-10 - M51.35) Mr. Tolentino is a 38-year-old gentleman with testicular hypofunction and morbid obesity here for follow up. We saw him in January. No weight change since last visit. Plan is as follows: Dietary recommendations. Food recall was done today and patient advised to be on low calorie, low carbohydrate diet. Restrict calories to less than 1500 kcal in 24 hours. Low glycemic index foods and encouraged. Meal replacements were recommended. Advised to use sbna-[id number] multivitamins and vitamin D. Advised to use calorie counter and adhere to portion control. Monthly goal is to lose 4-6 pounds Pharmacotherapy. His Ozempic (0.25 or 0.5 MG/DOSE) 2 MG/1.5ML was denied by his insurance because he is not diabetic. Start Wegovy 2.4 MG/0.75ML and continue Naltrexone 50 MG. Side effects explained to the patient. Goal is to lose 3-5% of body weight in 3 months. Exercise. Patient encouraged to increase frequency, intensity and duration of exercise. Encouraged to burn at least 250-500 kcal in one session. Also encouraged to do weight training Assess. Different risk factors discussed with the patient and addressed Advise. Patient was given clear And specific advise that she will comply with Low-calorie diet and try not to exceed more than 1300 kcal in 24 hours. Agree. Mutually agreed to work together to achieve appropriate goals Assist. Motivational interviewing done. Arrange. Follow-up appointment arranged. Counseling. 20 minutes spent Face to face with the patient more than 50% of time was spent counseling Alcohol dependence. Discussed complications of alcohol intake and advised to cut back. He was started on naltrexone which will help with alcohol cessation and weight loss Nicotine dependence. He is still currently smoking and cessation advised. DDD. He takes Gabapentin 300 MG once a day. Screening blood work before next appointment. General health concerns discussed with patient. Scribe services used to formulate this note under HIPAA compliance and under [place] law mandated for scribe services. Patient aware of service. Verbal consent and written consent taken from the patient. Patient understands and verbalizes understanding of the scribes services and all questions answered regarding scribes services. Patient agrees to use of scribes services. 01/04/2024 Other intervertebral disc degeneration, thoracolumbar region (ICD-10 - M51.35) Mr. Tolentino is a 38-year-old gentleman with testicular hypofunction and morbid obesity here for follow up. We saw him in December. He lost 7 lbs since last visit. Plan is as follows: Dietary recommendations. Food recall was done today and patient advised to be on low calorie, low carbohydrate diet. Restrict calories to less than 1500 kcal in 24 hours. Low glycemic index foods and encouraged. Meal replacements were recommended. Advised to use uxnl-[id number] multivitamins and vitamin D. Advised to use calorie counter and adhere to portion control. Monthly goal is to lose 4-6 pounds Pharmacotherapy. Continue Ozempic (0.25 or 0.5 MG/DOSE) 2 MG/1.5ML weekly and Naltrexone 50 MG. Side effects explained to the patient. Goal is to lose 3-5% of body weight in 3 months. Exercise. Patient encouraged to increase frequency, intensity and duration of exercise. Encouraged to burn at least 250-500 kcal in one session. Also encouraged to do weight training Assess. Different risk factors discussed with the patient and addressed Advise. Patient was given clear And specific advise that she will comply with Low-calorie diet and try not to exceed more than 1300 kcal in 24 hours. Agree. Mutually agreed to work together to achieve appropriate goals Assist. Motivational interviewing done. Arrange. Follow-up appointment arranged. Counseling. 20 minutes spent Face to face with the patient more than 50% of time was spent counseling Alcohol dependence. Discussed complications of alcohol intake and advised to cut back. He was started on naltrexone which will help with alcohol cessation and weight loss Nicotine dependence. He is still currently smoking and cessation advised. DDD. He takes Gabapentin 300 MG once a day. Screening blood work before next appointment. General health concerns discussed with patient. Scribe services used to formulate this note under HIPAA compliance and under [place] law mandated for scribe services. Patient aware of service. Verbal consent and written consent taken from the patient. Patient understands and verbalizes understanding of the scribes services and all questions answered regarding scribes services. Patient agrees to use of scribes services. 12/07/2023 Paresthesia of skin (ICD-10 - R20.2) Mr. Tolentino is a 38-year-old gentleman with testicular hypofunction and morbid obesity here for follow up. Plan is as follows: Dietary recommendations. Food recall was done today and patient advised to be on low calorie, low carbohydrate diet. Restrict calories to less than 1500 kcal in 24 hours. Low glycemic index foods and encouraged. Meal replacements were recommended. Advised to use yhim-lai-[id number] multivitamins and vitamin D. Advised to use calorie counter and adhere to portion control. Monthly goal is to lose 4-6 pounds Pharmacotherapy. Continue Ozempic (0.25 or 0.5 MG/DOSE) 2 MG/1.5ML weekly and Naltrexone 50 MG. Side effects explained to the patient. Goal is to lose 3-5% of body weight in 3 months. Exercise. Patient encouraged to increase frequency, intensity and duration of exercise. Encouraged to burn at least 250-500 kcal in one session. Also encouraged to do weight training Assess. Different risk factors discussed with the patient and addressed Advise. Patient was given clear And specific advise that she will comply with Low-calorie diet and try not to exceed more than 1300 kcal in 24 hours. Agree. Mutually agreed to work together to achieve appropriate goals Assist. Motivational interviewing done. Arrange. Follow-up appointment arranged. Counseling. 20 minutes spent Face to face with the patient more than 50% of time was spent counseling Alcohol dependence. Discussed complications of alcohol intake and advised to cut back. He was started on naltrexone which will help with alcohol cessation and weight loss Nicotine dependence. He is still currently smoking and cessation advised. Paresthesia of skin. Start Gabapentin 300 MG once a day Erectile dysfunction. Cialis 5 mg 1 tablet take half an hour before going to bed. Side effects discussed with the patient General health concerns discussed with patient. Scribe services used to formulate this note under HIPAA compliance and under [place] law mandated for scribe services. Patient aware of service. Verbal consent and written consent taken from the patient. Patient understands and verbalizes understanding of the scribes services and all questions answered regarding scribes services. Patient agrees to use of scribes services. 12/07/2023 Ingrowing nail (ICD-10 - L60.0) Mr. Tolentino is a 38-year-old gentleman with testicular hypofunction and morbid obesity here for follow up. Plan is as follows: Dietary recommendations. Food recall was done today and patient advised to be on low calorie, low carbohydrate diet. Restrict calories to less than 1500 kcal in 24 hours. Low glycemic index foods and encouraged. Meal replacements were recommended. Advised to use fdga-wvk-jrshxdt multivitamins and vitamin D. Advised to use calorie counter and adhere to portion control. Monthly goal is to lose 4-6 pounds Pharmacotherapy. Continue Ozempic (0.25 or 0.5 MG/DOSE) 2 MG/1.5ML weekly and Naltrexone 50 MG. Side effects explained to the patient. Goal is to lose 3-5% of body weight in 3 months. Exercise. Patient encouraged to increase frequency, intensity and duration of exercise. Encouraged to burn at least 250-500 kcal in one session. Also encouraged to do weight training Assess. Different risk factors discussed with the patient and addressed Advise. Patient was given clear And specific advise that she will comply with Low-calorie diet and try not to exceed more than 1300 kcal in 24 hours. Agree. Mutually agreed to work together to achieve appropriate goals Assist. Motivational interviewing done. Arrange. Follow-up appointment arranged. Counseling. 20 minutes spent Face to face with the patient more than 50% of time was spent counseling Alcohol dependence. Discussed complications of alcohol intake and advised to cut back. He was started on naltrexone which will help with alcohol cessation and weight loss Nicotine dependence. He is still currently smoking and cessation advised. Paresthesia of skin. Start Gabapentin 300 MG once a day Erectile dysfunction. Cialis 5 mg 1 tablet take half an hour before going to bed. Side effects discussed with the patient General health concerns discussed with patient. Scribe services used to formulate this note under HIPAA compliance and under [place] law mandated for scribe services. Patient aware of service. Verbal consent and written consent taken from the patient. Patient understands and verbalizes understanding of the scribes services and all questions answered regarding scribes services. Patient agrees to use of scribes services. Plan Of Treatment Pending Test Test Name Order Date X ray : Foot, left 3v 10/09/2024 CBC/Differential (No Platelet)-[id number] Lipid Panel-[id number] 10/09/2024 Lipid Panel-[id number] 09/04/2024 Next Appt Details Provider Name:Angie maradiaga, 12/04/2024 11:15:00 AM, [address] [place] [address], [place], [id number], Insurance Providers Payer Name Payer Address Payer Phone Subscriber Number Group Number Insured Name Patient Relationship to Insured Coverage Start Date Coverage End Date 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
--- OUTSIDE RECORDS SUMMARY | 2024-11-20 15:01 | XMS_ITS ---
Author Organization [employer] [facility] Address [address] [place] [address] Care Team Providers Care Solar Photovoltaic Electrician Name Role Phone REBECCA LOPEZ Primary Care Provider Angie Ptael Unavailable [phone] Allergies No Known Allergies Reason For Referral Reason PLEASE EVALUATE AND TREAT Diagnosis 1 Carpal tunnel syndro me, bilateral upper limbs (G56.03) Referral Organization [facility] Referring Provider First Name Angie Referring Provider Last Name Jorge Referred Provider Specialty Orthopedic S urgery General Notes referral was faxed t o [facility]. Please contact patient for scheduling, Kimi Jennings 11/06/2024 04:46:55 PM > Referral Priority Routine Reason please evaluate and treat Diagnosis 1 Hidradenitis suppura tiva (L73.2) Referral Organization [facility] Referring Provider First Name Angie Referring Provider Last Name Jorge Referred Provider Specialty Dermatology General Notes referral was faxed t o [facility]. please contact patient for scheduling., Kimi Jennings 11/06/2024 04:45:30 PM > Referral Priority Routine REASON FOR VISIT WM f/up Medications Medication SIG (Take, Route, Frequency, Duration) Notes Start Date End Date Status Naltrexone HCl 50 MG 1 tablet Orally Onc e a day for 30 days 11/02/2023 Not-Taking Meloxicam 15 MG 1 tablet Orally Once a day for 30 day(s) 11/22/2022 Not-Taking tiZANidine HCl 4 MG 1 tablet as needed Orally Three times a day for 7 days 11/22/2022 Not-Taking Wegovy 2.4 MG/0.75ML 0.75 mL Subcutaneou s once a week for 30 days 12/29/2022 Not-Taking Ondansetron HCl 4 MG 1 tablet Orally twi ce a day for 10 days 02/23/2024 Not-Taking Acamprosate Calcium 333 MG 2 tablets Ora lly Three times a day for 30 days 06/28/2024 Not-Taking tiZANidine HCl 4 MG 1 tablet at bedtime as needed Orally Once a day for 14 days 06/05/2024 Not-Taking Sertraline HCl 50 MG 1 tablet Orally Onc e a day for 30 days 09/04/2024 Active chlordiazePOXIDE HCl 25 MG 1 capsule Ora lly Twice a day for 5 days 06/28/2024 Not-Taking cloNIDine HCl 0.1 MG 1 tablet Orally Onc e a day for 30 days 06/28/2024 Active Meloxicam 15 MG 1 tablet Orally Once a day for 30 days 06/05/2024 Active Ondansetron HCl 4 MG 1 tablet Orally twi ce a day for 10 days 07/24/2024 Active Doxycycline Hyclate 100 MG 1 tablet Oral ly 2 TIMES A DAY for 14 days 07/24/2024 Not-Taking Ezetimibe 10 MG 1 tablet Orally Once a day for 90 days 07/10/2024 Active Cialis 5 MG 1 tablet as needed Orally Once a day for 30 days Active Zepbound 7.5 MG/0.5ML 0.5 mL Subcutaneou s weekly for 30 days 11/06/2024 Active Sertraline HCl 50 MG 1 tablet Orally Onc e a day for 30 days 11/06/2024 Active Gabapentin 300 MG 1 capsule Orally Onc e a day for 30 days 12/07/2023 Active Zepbound 5 MG/0.5ML 5 mg Subcutaneous weekly for 30 days 06/05/2024 Active Vital Signs Temperature 96.6 degrees Fahrenheit 11/06/19 25 Oximetry 97 % 11/06/2024 Heart Rate 88 /min 11/06/2024 Blood pressure systolic 118 mm Hg 11/06/19 25 Blood pressure diastolic 70 mm Hg 025 Weight 319.2 lbs 11/06/2024 BMI 45.8 kg/m2 11/06/2024 Height 70 in 11/06/2024 Encounters Encounter Location Date Provider Diagnosis [facility] [address] [place] [address] 11/06/2024 Angie Patel Morbid (severe) obesity due to excess calories E66.01 ; Anxiety F41.9 ; Carpal tunnel syndrome, bilateral upper limbs G56.03 ; Carpal tunnel syndrome, left upper limb G56.02 and Hidradenitis suppurativa L73.2 Assessments Encounter Date Diagnosis (ICD Code) Assessment Notes Treatment Notes Treatment Clinical Notes Section Notes 11/06/2024 Morbid (severe) obesity due to excess calories (ICD-10 - E66.01) Mr. Daugherty is a 38-year-old gentleman with testicular hypofunction [...] Meal replacements were recommended. Advised to use vuoj-gfj-qnsvccw multivitamins and vitamin D. Advised to use [...] has been taken Zetia for high triglyceride. [place] supplements are recommended given combined hyperlipidemia. Will check lipid panel and make recommendations based on that. I have advised on continuation on diet modification with decreasing carb intake and increasing fibers. Bilateral carpal tunnel syndrome. He is given referrals to hand surgery Left foot plantar fasciitis. X-ray of the left foot to rule out bony spurs and he can use eapi-ngu-cgawkuf heel pads Alcohol dependence. Discussed complications of alcohol and abstinence encouraged. Nicotine dependence. Encouraged smoking cessation. Is not ready to quit at this point 11/06/2024 Anxiety (ICD-10 - F41.9) Mr. Daugherty is a 38-year-old gentleman with testicular hypofunction [...] Meal replacements were recommended. Advised to use pgys-zsr-usbukgv multivitamins and vitamin D. Advised to use [...] has been taken Zetia for high triglyceride. [place] supplements are recommended given combined hyperlipidemia. Will check lipid panel and make recommendations based on that. I have advised on continuation on diet modification with decreasing carb intake and increasing fibers. Bilateral carpal tunnel syndrome. He is given referrals to hand surgery Left foot plantar fasciitis. X-ray of the left foot to rule out bony spurs and he can use bwoa-tic-cdhsdfw heel pads Alcohol dependence. Discussed complications of alcohol and abstinence encouraged. Nicotine dependence. Encouraged smoking cessation. Is not ready to quit at this point 11/06/2024 Carpal tunnel syndrome, bilateral upper limbs (ICD-10 - G56.03) Mr. Daugherty is a 38-year-old gentleman with testicular hypofunction [...] Meal replacements were recommended. Advised to use txgp-jvb-scfhctl multivitamins and vitamin D. Advised to use [...] has been taken Zetia for high triglyceride. [place] supplements are recommended given combined hyperlipidemia. Will check lipid panel and make recommendations based on that. I have advised on continuation on diet modification with decreasing carb intake and increasing fibers. Bilateral carpal tunnel syndrome. He is given referrals to hand surgery Left foot plantar fasciitis. X-ray of the left foot to rule out bony spurs and he can use juci-nfq-eiixxou heel pads Alcohol dependence. Discussed complications of alcohol and abstinence encouraged. Nicotine dependence. Encouraged smoking cessation. Is not ready to quit at this point 11/06/2024 Carpal tunnel syndrome, left upper limb (ICD-10 - G56.02) Mr. Daugherty is a 38-year-old gentleman with testicular hypofunction [...] Meal replacements were recommended. Advised to use kefk-wot-qrxkmbo multivitamins and vitamin D. Advised to use [...] has been taken Zetia for high triglyceride. [place] supplements are recommended given combined hyperlipidemia. Will check lipid panel and make recommendations based on that. I have advised on continuation on diet modification with decreasing carb intake and increasing fibers. Bilateral carpal tunnel syndrome. He is given referrals to hand surgery Left foot plantar fasciitis. X-ray of the left foot to rule out bony spurs and he can use mynr-luk-hnekwge heel pads Alcohol dependence. Discussed complications of alcohol and abstinence encouraged. Nicotine dependence. Encouraged smoking cessation. Is not ready to quit at this point 11/06/2024 Hidradenitis suppurativa (ICD-10 - L73.2) Mr. Daugherty is a 38-year-old gentleman with testicular hypofunction [...] Meal replacements were recommended. Advised to use lbko-pll-cmtgesd multivitamins and vitamin D. Advised to use [...] has been taken Zetia for high triglyceride. [place] supplements are recommended given combined hyperlipidemia. Will check lipid panel and make recommendations based on that. I have advised on continuation on diet modification with decreasing carb intake and increasing fibers. Bilateral carpal tunnel syndrome. He is given referrals to hand surgery Left foot plantar fasciitis. X-ray of the left foot to rule out bony spurs and he can use sajb-fop-inkrndy heel pads Alcohol dependence. Discussed complications of alcohol and abstinence encouraged. Nicotine dependence. Encouraged smoking cessation. Is not ready to quit at this point Plan Of Treatment Medication Medication Name Sig Start Date Stop Date Notes Zepbound 7.5 MG/0.5ML 0.5 mL Subcutaneou s weekly for 30 days 11/06/2024 Sertraline HCl 50 MG 1 tablet Orally Onc e a day for 30 days 11/06/2024 Referrals Referral Date Details 11/06/2024 11/06/2024, PLEASE E VALUATE AND TREAT 11/06/2024 11/06/2024, please e valuate and treat Next Appt Details Follow Up: 4 Weeks-González NGUYEN n: Provider Name:Angie maradiaga, 12/04/2024 11:15:00 AM, [address] [place] [address], [address], Progress Notes * Ayaz DAUGHERTY RDOB:1984 (39 yo M)Acc No.[id number]:11/06/2024 Patient:?Ayaz DAUGHERTY Provider:?Angie Patel :1985???Age:39 Y???Sex:Male Gerard e:11/06/2024 [facility] [address] [facility] Pcp:JESSICA FERNANDEZ Subjective: * Chief Complaints: * ???1. WM f/up. * HPI: ???F/U Obesity:?39 year old male presents with c/o Patient is here for f/u on weight management.?Patient has lost weight?He has lost 1 pound since the last visit ?.?patient is on Meal replacement?non compliant with low calorie diet.?Patient is exercising?Denies.?frequency of exercise? .?patient on pharmacotherapy?Zepbound 5MG/0.5ML.?tolerating medication?yes.?Sleep pattern?Good.? * ROS:?General/Constitutional:?Overall health?Good.?Change in appetite?denies.?Chills?denies.?Fever?denies.?Night sweats?denies.?Sleep disturbance?denies.?Weight gain?denies.?Weight loss?admits, 22?pounds.?Neurologic:?Difficulty speaking?denies.?Dizziness?denies.?Gait abnormality?denies.?Headache?denies.?Loss of strength?denies.?Memory loss?denies.?Seizures?denies.?Tingling/Numbness?denies.?Ophthalmologic:?Blurred vision?denies.?Discharge?denies.?Dry eye?denies.?Red eye?denies.?ENT:?Change in Voice?Denies.?Cold Symptoms?Denies.?Cough?Denies.?Dizziness?Denies.?Nasal Congestion?Denies.?Otalgia?Denies.?postnasal drip?Denies.?Blocked ear?denies.?Nosebleed?denies.?Snoring?denies.?Cardiovascular:?Diaphoresis?Denies.?Pedal Edema?Denies.?PND (Paroxsymal nocturnal dyspnea)?Denies.?Chest pain?denies.?Difficulty laying flat?denies.?Dyspnea on exertion?denies.?Heart murmur?denies.?Orthopnea?denies.?Respiratory:?Snoring?denies.?Asthma?denies.?Cough?denies.?Shortness of breath with exertion?denies.?Sputum production?denies.?Wheezing?denies.?Gastrointestinal:?Change in bowel habits?denies.?Constipation?denies.?Decreased appetite?denies.?Diarrhea?denies.?Heartburn?denies.?Nausea?denies.?Vomiting?edin es.?Musculoskeletal:?tingling/numbness?Denies.?myalgias?Denies.?Joint Swelling?Denies.?extremeties?normal.?Arthritis?denies.?Back problems?admits.?Carpal tunnel?denies.?Joint stiffness?denies.?Muscle aches?denies.?Endocrine:?Bowel Changes?Denies.?Breast Discharge?Denies.?poor libido?Denies.?Cold intolerance?denies.?Excessive sweating?denies.?Excessive thirst?denies.?Frequent urination?denies.?Thyroid problems?denies.?Skin:?Bruising?Denies.?Eczema?denies.?Hair changes?denies.?Rash?denies.?Skin lesion(s)?denies.?Psychiatric:?Anxiety?admits.?Depressed mood?denies.?Difficulty sleeping?denies.?Nervous breakdown?denies.?Substance abuse?denies.?Urology:?blood in urine?denies.?burning on urination?denies.?difficulty urinating?denies.?discharge?denies.?dysuria?denies.? 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 * Medications:?Taking Gabapent in 300 MG Capsule 1 capsule Orally Once a day , Taking Zepbound 5 MG/0.5ML Solution Auto-injector 5 mg Subcutaneous weekly , Taking Cialis 5 MG Tablet 1 tablet as needed Orally Once a day , Taking Meloxicam 15 MG Tablet 1 tablet Orally Once a day , Taking Ondansetron HCl 4 MG Tablet 1 tablet Orally twice a day , Taking Ezetimibe 10 MG Tablet 1 tablet Orally Once a day , Taking cloNIDine HCl 0.1 MG Tablet 1 tablet Orally Once a day , Taking Sertraline HCl 50 MG Tablet 1 tablet Orally Once a day , Not-Taking Doxycycline Hyclate 100 MG Tablet 1 tablet Orally 2 TIMES A DAY , Not-Taking chlordiazePOXIDE HCl 25 MG Capsule 1 capsule Orally Twice a day , Not-Taking Acamprosate Calcium 333 MG Tablet Delayed Release 2 tablets Orally Three times a day , Not-Taking tiZANidine HCl 4 MG Tablet 1 tablet at bedtime as needed Orally Once a day , Not-Taking Wegovy 2.4 MG/0.75ML Solution Auto- injector 0.75 mL Subcutaneous once a week , Not-Taking Ondansetron HCl 4 MG Tablet 1 tablet Orally twice a day , Not-Taking Naltrexone HCl 50 MG Tablet 1 tablet Orally Once a day , Not-Taking Meloxicam 15 MG Tablet 1 tablet Orally Once a day , Not-Taking tiZANidine HCl 4 MG Tablet 1 tablet as needed Orally Three times a day , Medication List reviewed and reconciled with the patient * Allergies:?N.K.D.A. Objective: * Vitals:?Temp:96.6F, Oxygen s at %:97%, HR:88/min, BP:118/70mm Hg, Wt:319.2lbs, BMI:45.8Index, Ht: 70 in. * Examination: ???General Examination: ?Psychiatry?Normal.?GENERAL APPEARANCE:?Well developed, well nourished, in no acute distress.?MUSCULOSKELETAL:?normal.?HEAD:?Normocephalic, atraumatic.?EYES:?Pupils equal, round, reactive to light and accommodation, sclera non-icteric.?EARS:?Normal.?ORAL CAVITY:?Normal.?THROAT:?Clear.?OROPHARYNX?Normal.?SINUSES?Normal.?NECK/THYROID:?Neck supple, full range of motion, no cervical lymphadenopathy.?SKIN:?Warm and dry, no suspicious lesions.?HEART:?S1, S2 normal regular rate and rhythm no murmurs, rubs, gallops .?LUNGS:?clear anteriorly and posteriorly good air movement no wheezes, rales, rhonchi .?BREASTS:?__.?ABDOMEN:?Soft, nontender, nondistended, bowel sounds present, normal.?EXTREMITIES:?Normal.?PERIPHERAL PULSES:?Normal.?NEUROLOGIC:?Nonfocal, appropriate motor strength normal upper and lower extremities, sensory exam intact.?FEMALE GENITOURINARY:?__.?MALE GENITOURINARY:?__.?PODIATRIC:?Normal.?Road Boss? .? Assessment: * Assessment: 1.?Morbid (severe) obesity d ue to excess calories - E66.01 (Primary)???2.?Anxiety - F41.9???3.?Carpal tunnel syndrome, bilateral upper limbs - G56.03???4.?Carpal tunnel syndrome, left upper limb - G56.02???5.?Hidradenitis suppurativa - L73.2??? Mr. Daugherty is a 38-year-old gentleman with testicular hypofunction [...] Meal replacements were recommended. Advised to use tlpb-hij-lddshsf multivitamins and vitamin D. Advised to use [...] has been taken Zetia for high triglyceride. [place] supplements are recommended given combined hyperlipidemia. Will check lipid panel and make recommendations based on that. I have advised on continuation on diet modification with decreasing carb intake and increasing fibers. Bilateral carpal tunnel syndrome. He is given referrals to hand surgery Left foot plantar fasciitis. X-ray of the left foot to rule out bony spurs and he can use mftr-kur-kibfwfr heel pads Alcohol dependence. Discussed complications of alcohol and abstinence encouraged. Nicotine dependence. Encouraged smoking cessation. Is not ready to quit at this point Plan: * Treatment: 2.?Anxiety? Start Sertraline HCl Tablet, 50 MG, 1 tablet, Orally, Once a day, 30 days, 30, Refills 5.?? 3.?Carpal tunnel syndrome, b ilateral upper limbs? Referral To:Orthopedic Surgery ?Reason:PLEASE EVALUATE AND TREAT 4.?Hidradenitis suppurativa? Referral To:Dermatology ?Reason:please evaluate and treat * Follow Up:?4 Weeks-WM * * Electronic signature of Maricruz Patel PA-C on 11/20/2024 at 03:00 PM EST Sign off status: Pending * Provider:Marty Patel Date:?11/06/19 25 Generated for Toro mena/Du/Ninaitting on:?11/20/2024 03:00 PM EST History and Physical Notes * HPI (History of Present Illness) Category Sub-Category Detail Notes Category Not es F/U Obesity Patient is here for f/u on weight managem ent Patient has lost weight He has lost 1 po und since the last visit patient is on Meal replacement non compl iant with low calorie diet Patient is exercising Denies frequency of exercise patient on pharmacotherapy Zepbound 5MG/ 0.5ML tolerating medication yes Sleep pattern Good Examination Category Sub-Category Detail Notes Category Not es General Examination GENERAL APPEARANCE: Well dev eloped, well nourished, in no acute distress HEAD: Normocephalic, atrau matic EYES: Pupils equal, round, reactive to light and accommodation, sclera non-icteric EARS: Normal THROAT: Clear NECK/THYROID: Neck supple, full ra nge of motion, no cervical lymphadenopathy HEART: S1, S2 normal regula r rate and rhythm no murmurs, rubs, gallops LUNGS: clear anteriorly and posteriorly good air movement no wheezes, rales, rhonchi ABDOMEN: Soft, nontender, non distended, bowel sounds present, normal NEUROLOGIC: Nonfocal, appropriat e motor strength normal upper and lower extremities, sensory exam intact SKIN: Warm and dry, no tammie picious lesions EXTREMITIES: Normal PERIPHERAL PULSES: Normal BREASTS: __ MUSCULOSKELETAL: normal MALE GENITOURINARY: __ FEMALE GENITOURINARY: __ ORAL CAVITY: Normal PODIATRIC: Normal Psychiatry Normal OROPHARYNX Normal SINUSES Normal Road Boss Consultation Request Notes Referral Date Referring Provider Referred Provider Not es 11/06/2024 Angie Patel , PLEASE EVAL UATE AND TREAT 11/06/2024 Angie Patel , please eval uate and treat
== END 2024-11-20 15:14 | disposition home or self-care (01) ==
PROVIDERS: Visit Provider Orthopaedic Surgery
DX: R20.0 Anesthesia of skin (principal)
CPT/HCPCS: 99203

== ENCOUNTER → 2024-11-20 13:59 | Outpatient (BNVA) | payer OTHER, SELFPAY | PROVIDERS: Visit Provider Orthopaedic Surgery ==

== ENCOUNTER 2025-01-09 13:16 | Outpatient (REF) | payer OTHER, SELFPAY ==
--- NOTE | 2025-01-09 13:19 | EMG_ITS ---
Chief complaint: Hand numbness bilateral, left worse than right, for the last 2 years. History of ganglion cyst removal left wrist with concomitant nerve injury. History of peripheral neuropathy on legs. Nondiabetic. Reason for referral: Evaluate for Carpal Tunnel Syndrome Referred by: Dr. Lentz Procedure done: Bilateral upper extremities NCS/EMG Precautions and/or limitations: None The limb temperature was monitored continuously and remained between 32-36 degrees C during the performance of the NCS. Nerve Conduction Studies Anti Sensory Summary Table ?Stim Site NR Onset (ms) Norm Onset (ms) Peak (ms) Norm Peak (ms) O-P Amp (?V) Norm O-P Amp Site1 Site2 Delta-0 (ms) Dist (cm) Jayy (m/s) Norm Jayy (m/s) Left Median Anti Sensory (2nd Digit) Wrist NR <3.6 >10 Wrist 2nd Digit 14.0 Right Median Anti Sensory (2nd Digit) Wrist ? 3.3 4.2 <3.6 14.7 >10 Wrist 2nd Digit 3.3 14.0 42 Right Radial Anti Sensory (Thumb) Forearm ? 1.6 2.1 <3.1 35.0 Forearm Thumb 1.6 0.0 Left Ulnar Anti Sensory (5th Digit) Wrist ? 2.3 3.0 <3.7 18.0 >15.0 Wrist 5th Digit 2.3 14.0 61 Right Ulnar Anti Sensory (5th Digit) Wrist ? 2.4 3.0 <3.7 14.9 >15.0 Wrist 5th Digit 2.4 14.0 58 Motor Summary Table ?Stim Site NR Onset (ms) Norm Onset (ms) O-P Amp (mV) Norm O-P Amp iAmp (mV) Amp (1st) (%) Site1 Site2 Delta-0 (ms) Dist (cm) Jayy (m/s) Norm Jayy (m/s) Left Median Motor (Abd Poll Brev) Wrist ? 4.5 <3.9 7.8 >4.5 10.7 100.0 Elbow Wrist 3.9 23.0 59 >45 Elbow ? 8.4 6.9 9.5 88.5 Right Median Motor (Abd Poll Brev) Wrist ? 4.3 <3.9 10.8 >4.5 13.4 100.0 Elbow Wrist 4.0 22.0 55 >45 Elbow ? 8.3 10.7 13.6 99.1 Left Ulnar Motor (Abd Dig Minimi) Wrist ? 2.6 <3.0 6.2 >5 7.3 100.0 B Elbow Wrist 3.7 20.5 55 >45 B Elbow ? 6.3 5.7 6.9 91.9 A Elbow B Elbow 1.4 10.0 71 >45 A Elbow ? 7.7 5.8 7.0 93.5 Right Ulnar Motor (Abd Dig Minimi) Wrist ? 2.7 <3.0 9.0 >5 10.7 100.0 B Elbow Wrist 3.3 21.0 64 >45 B Elbow ? 6.0 8.8 10.5 97.8 A Elbow B Elbow 1.0 10.0 100 >45 A Elbow ? 7.0 8.7 10.2 96.7 EMG ?Side Muscle Nerve Root Ins Act Fibs Psw Amp Dur Poly Recrt Int Pat Comment Right 1stDorInt Ulnar C8-T1 Nml Nml Nml Nml Nml 0 Nml Complete Right FlexCarRad Median C6-7 Nml Nml Nml Nml Nml 0 Nml Complete Right Biceps Musculocut C5-6 Nml Nml Nml Nml Nml 0 Nml Complete Right Triceps Radial C6-7-8 Nml Nml Nml Nml Nml 0 Nml Complete Right Deltoid Axillary C5-6 Nml Nml Nml Nml Nml 0 Nml Complete Left 1stDorInt Ulnar C8-T1 Nml Nml Nml Nml Nml 0 Nml Complete Left FlexCarRad Median C6-7 Nml Nml Nml Nml Nml 0 Nml Complete Left Biceps Musculocut C5-6 Nml Nml Nml Nml Nml 0 Nml Complete Left Triceps Radial C6-7-8 Nml Nml Nml Nml Nml 0 Nml Complete Left Deltoid Axillary C5-6 Nml Nml Nml Nml Nml 0 Nml Complete FINDINGS: Bilateral median motor nerves showed prolonged distal latency, normal amplitude and normal conduction velocity. Right median sensory nerve showed prolonged peak latencies. Left median sensory nerve showed absent response. All other nerves tested were within normal. Concentric needle EMG was performed in selected muscles of the bilateral upper extremities. Study did not reveal signs of electric abnormalities as shown in the table above. IMPRESSION: 1. This is an abnormal study. 2. There is electrodiagnostic evidence for bilateral moderate-severe median neuropathy at the wrist, consistent with carpal tunnel syndrome. Left worse than right. 3. There is no electrodiagnostic evidence for ulnar neuropathy, brachial plexopathy, or cervical radiculopathy. Thank you for your kind referral. Carisa Sheth MD, IAN Board Certified, [place] [employer] and [employer] (ABPMR) Board Certified, [place] Board of Electrodiagnostic Medicine (ABEM) CODIN [phone] MTDD
--- OUTSIDE RECORDS SUMMARY | 2025-01-09 15:20 | XMS_ITS | Clinical Summary ---
Author Organization [facility] Address [address] [place] [address] Care Team Providers Care Economist Research Assistant Name Role Phone Dusty Pike MD Primary Care Provider Medical History Medical History Date Comments ETOH [...] Td Vaccines (1 - Tdap) 2002 Hepatitis B Vaccines (1 of 3 [...] on patient's age to complete this topic Hepatitis A Vaccines Aged Out No long er eligible based on patient's age to complete this topic IPV Vaccines Aged Out No longer eligi ble based on patient's age to complete this topic MMR Vaccines Aged Out No longer eligi ble based on patient's age to complete this topic Meningococcal ACWY Vaccine Aged Out N o longer eligible based on patient's age to complete this topic Meningococcal B Vaccine Aged Out No l onger eligible based on patient's age to complete this topic RSV Immunization Patients Un aniket 20 months Aged Out No longer eligible b ased on patient's age to complete this topic Varicella Vaccines Aged Out No longer eligible based on patient's age to complete this topic Care Teams Economist Research Assistant Relationship Specialty Start Date End Date Dusty Pike MD [address] [place] [id number] PCP - General Internal Medicine 10/05/21
--- OUTSIDE RECORDS SUMMARY | 2025-01-09 15:20 | XMS_ITS ---
Author Organization [facility] Address [address] [address] Care Team Providers Care Lamp Shades Supervisor Name Role Phone JESSICA FERNANDEZ Primary Care Provider [phone] Angie Patel [phone] REASON FOR VISIT Order? Encounters Encounter Location Date Provider Diagnosis [facility] [address] [facility] [address] [place] [address] 01/08/2025 Angie Patel Plan Of Treatment Next Appt Details Provider Name:Angie maradiaga, 02/12/2025 11:00:00 AM, [address] [place] [address], [place], [address], Progress Notes * Ayaz DAUGHERTY RDOB:1984 (39 yo M)Acc No.[id number]:01/08/2025 Patient:?Ayaz DAUGHERTY :1985???Age:39 Y???Sex:Male Address:[address] [place] [address] * true * Date:? Generated for Maggiei trina/Du/eTransmitting on:?01/09/2025 03:20 PM EDT
--- OUTSIDE RECORDS SUMMARY | 2025-01-09 15:21 | XMS_ITS ---
Author Organization [facility] Address [address] [address] Care Team Providers Care System Validation Engineer Name Role Phone JESSICA FERNANDEZ Primary Care Provider [phone] REASON FOR VISIT 01/15/25 FMLA Paperwork Encounters Encounter Location Date Provider Diagnosis [facility] [address] [facility] [address] [place] [address] 01/01/2025 JESSICA FERNANDEZ Plan Of Treatment Next Appt Details Provider Name:Angie Alegriamarvin maradiaga, 02/12/2025 11:00:00 AM, [address] [facility] [address], [place], [address], Progress Notes * Ayaz DAUGHERTY RDOB:1984 (39 yo M)Acc No.[id number]:01/01/2025 Patient:?Ayaz DAUGHERTY :1985???Age:39 Y???Sex:Male Address:[place] [address] * * Date:?
--- OUTSIDE RECORDS SUMMARY | 2025-01-09 15:21 | XMS_ITS ---
Author Organization [facility] Address [address] [facility] [address] [place] [address] Care Team Providers Care Manufacturing Clerk Name Role Phone REBECCA JESSICA Primary Care Provider Angie Patel Unavailable [phone] Allergies No Known Allergies REASON FOR VISIT WM f/up Medications Medication SIG (Take, Route, Frequency, Duration) Notes Start Date End Date Status tiZANidine HCl 4 MG 1 tablet as needed Orally Three times a day for 7 days 11/22/2022 Not-Taking Naltrexone HCl 50 MG 1 tablet Orally Onc e a day for 30 days 11/02/2023 Not-Taking Meloxicam 15 MG 1 tablet Orally Once a day for 30 day(s) 11/22/2022 Not-Taking Ondansetron HCl 4 MG 1 tablet Orally twi ce a day for 10 days 02/23/2024 Not-Taking Wegovy 2.4 MG/0.75ML 0.75 mL Subcutaneou s once a week for 30 days 12/29/2022 Not-Taking chlordiazePOXIDE HCl 25 MG 1 capsule Ora lly Twice a day for 5 days 06/28/2024 Not-Taking Acamprosate Calcium 333 MG 2 tablets Ora lly Three times a day for 30 days 06/28/2024 Not-Taking Zepbound 7.5 MG/0.5ML 0.5 mL Subcutaneou s weekly for 30 days 11/06/2024 Not-Taking Doxycycline Hyclate 100 MG 1 tablet Oral ly 2 TIMES A DAY for 14 days 07/24/2024 Not-Taking tiZANidine HCl 4 MG 1 tablet at bedtime as needed Orally Once a day for 14 days 06/05/2024 Not-Taking cloNIDine HCl 0.1 MG 1 tablet Orally Onc e a day for 30 days 06/28/2024 Active Sertraline HCl 50 MG 1 tablet Orally Onc e a day for 30 days 11/06/2024 Active Ezetimibe 10 MG 1 tablet Orally Once a day for 90 days 07/10/2024 Active Meloxicam 15 MG 1 tablet Orally Once a day for 30 days 06/05/2024 Active Ondansetron HCl 4 MG 1 tablet Orally twi ce a day for 10 days 07/24/2024 Active Zepbound 10 MG/0.5ML 0.5 mL Subcutaneous weekly for 30 days 12/11/2024 Active Gabapentin 300 MG 1 capsule Orally Onc e a day for 30 days 12/07/2023 Active Cialis 5 MG 1 tablet as needed Orally Once a day for 30 days Active Vital Signs Temperature 96.9 degrees Fahrenheit 01/09/20 25 Oximetry 99 % 01/08/2025 Heart Rate 97 /min 01/08/2025 Blood pressure systolic 120 mm Hg 01/09/20 25 Blood pressure diastolic 78 mm Hg 025 Weight 316.5 lbs 01/08/2025 BMI 45.41 kg/m2 01/08/2025 Height 70 in 01/08/2025 Encounters Encounter Location Date Provider Diagnosis [address] [address] 01/08/2025 Angie Patel Morbid (severe) obes ity due to excess calories E66.01 ; Dietary counseling and surveillance Z71.3 ; Mixed hyperlipidemia E78.2 and Unilateral inguinal hernia, without obstruction or gangrene, not specified as recurrent K40.90 Assessments Encounter Date Diagnosis (ICD Code) Assessment Notes Treatment Notes Treatment Clinical Notes Section Notes 01/08/2025 Morbid (severe) obesity due to excess calories (ICD-10 - E66.01) Mr. Daugherty is a 39-year-old gentleman with testicular hypofunction and morbid obesity here for medical weight management. We saw him in June. He gained 2 lbs since last visit. Plan is as follows: Dietary recommendations. Food recall was done today and patient advised to be on low calorie, low carbohydrate diet. Restrict calories to less than 1500 kcal in 24 hours. Low glycemic index foods and encouraged. Meal replacements were recommended. Advised to use liul-ost-owyknjp multivitamins and vitamin D. Advised to use calorie counter and adhere to portion control. Monthly goal is to lose 4-6 pounds Pharmacotherapy. Start Zepbound 10MG/0.5ML weekly, He is not interested in increasing [...] than 50% of time was spent counseling Hyperlipidemia - Previous lipid that is abnormal. Check lipid panel. Dietary modification discussed as well Question of sports hernia/inguinal hernia - Physical examination is unremarkable. He states that he has been diagnosed with this condition couple years ago. There is no records of this diagnosis. - Physical examination is negative for prehn, cremaster, no bulging hernia with Valsalva. I will get an ultrasound of the soft tissue groin area and based on the results we will further manage. I have rendered the services for this patient under direct supervision of Dr. Fernandez, who did not see the patient but was available upon request 01/08/2025 Dietary counseling and surveillance (ICD-10 - Z71.3) Mr. Daugherty is a 39-year-old gentleman with testicular hypofunction and morbid obesity here for medical weight management. We saw him in June. He gained 2 lbs since last visit. Plan is as follows: Dietary recommendations. Food recall was done today and patient advised to be on low calorie, low carbohydrate diet. Restrict calories to less than 1500 kcal in 24 hours. Low glycemic index foods and encouraged. Meal replacements were recommended. Advised to use gkyv-hly-hzovark multivitamins and vitamin D. Advised to use calorie counter and adhere to portion control. Monthly goal is to lose 4-6 pounds Pharmacotherapy. Start Zepbound 10MG/0.5ML weekly, He is not interested in increasing [...] than 50% of time was spent counseling Hyperlipidemia - Previous lipid that is abnormal. Check lipid panel. Dietary modification discussed as well Question of sports hernia/inguinal hernia - Physical examination is unremarkable. He states that he has been diagnosed with this condition couple years ago. There is no records of this diagnosis. - Physical examination is negative for prehn, cremaster, no bulging hernia with Valsalva. I will get an ultrasound of the soft tissue groin area and based on the results we will further manage. I have rendered the services for this patient under direct supervision of Dr. Fernandez, who did not see the patient but was available upon request 01/08/2025 Mixed hyperlipidemia (ICD-10 - E78.2) Mr. Daugherty is a 39-year-old gentleman with testicular hypofunction and morbid obesity here for medical weight management. We saw him in June. He gained 2 lbs since last visit. Plan is as follows: Dietary recommendations. Food recall was done today and patient advised to be on low calorie, low carbohydrate diet. Restrict calories to less than 1500 kcal in 24 hours. Low glycemic index foods and encouraged. Meal replacements were recommended. Advised to use zdew-ruz-gtpbpft multivitamins and vitamin D. Advised to use calorie counter and adhere to portion control. Monthly goal is to lose 4-6 pounds Pharmacotherapy. Start Zepbound 10MG/0.5ML weekly, He is not interested in increasing [...] than 50% of time was spent counseling Hyperlipidemia - Previous lipid that is abnormal. Check lipid panel. Dietary modification discussed as well Question of sports hernia/inguinal hernia - Physical examination is unremarkable. He states that he has been diagnosed with this condition couple years ago. There is no records of this diagnosis. - Physical examination is negative for prehn, cremaster, no bulging hernia with Valsalva. I will get an ultrasound of the soft tissue groin area and based on the results we will further manage. I have rendered the services for this patient under direct supervision of Dr. Fernandez, who did not see the patient but was available upon request 01/08/2025 Unilateral inguinal hernia, without obstruction or gangrene, not specified as recurrent (ICD-10 - K40.90) Mr. Daugherty is a 39-year-old gentleman with testicular hypofunction and morbid obesity here for medical weight management. We saw him in June. He gained 2 lbs since last visit. Plan is as follows: Dietary recommendations. Food recall was done today and patient advised to be on low calorie, low carbohydrate diet. Restrict calories to less than 1500 kcal in 24 hours. Low glycemic index foods and encouraged. Meal replacements were recommended. Advised to use ajjo-plb-zjcmrcn multivitamins and vitamin D. Advised to use calorie counter and adhere to portion control. Monthly goal is to lose 4-6 pounds Pharmacotherapy. Start Zepbound 10MG/0.5ML weekly, He is not interested in increasing [...] than 50% of time was spent counseling Hyperlipidemia - Previous lipid that is abnormal. Check lipid panel. Dietary modification discussed as well Question of sports hernia/inguinal hernia - Physical examination is unremarkable. He states that he has been diagnosed with this condition couple years ago. There is no records of this diagnosis. - Physical examination is negative for prehn, cremaster, no bulging hernia with Valsalva. I will get an ultrasound of the soft tissue groin area and based on the results we will further manage. I have rendered the services for this patient under direct supervision of Dr. Fernandez, who did not see the patient but was available upon request Plan Of Treatment Pending Test Test Name Order Date US Soft Tissue Groin 01/08/2025 Next Appt Details Follow Up: 4 Weeks-González NGUYEN n: Provider Name:Angie maradiaga, 02/12/2025 11:00:00 AM, [address] [place] [address], [phone], Progress Notes * Ayaz DAUGHERTY RDOB:1984 (39 yo M)Acc No.[id number]:01/08/2025 Patient:?Ayaz DAUGHERTY Appointment Provider:?Angie Patel :1985???Age:39 Y???Sex:Male Gerard e:01/08/2025 [id number] Pcp:JESSICA FERNANDEZ Subjective: * Chief Complaints: * ???WM f/up * HPI: ???F/U Obesity:?39 year old male presents with c/o Patient is here for f/u on weight management.?Patient has lost weight?He gained 2lbs on our scale,?.?patient is on Meal replacement?non compliant with low calorie diet.?Patient is exercising?Denies.?frequency of exercise? .?patient on pharmacotherapy?Zepbound 7.5MG/0.5ML.?tolerating medication?yes.?Sleep pattern?Good.?He also states that a couple years ago he was diagnosed with a sports hernia, he states that a couple days ago he turned the wrong way and ever since he has been experiencing discomfort in the groin area. He states that it happens occasionally. * ROS:?General/Constitutional:?Overall health?Good.?Change in appetite?denies.?Chills?denies.?Fever?denies.?Night sweats?denies.?Sleep disturbance?denies.?Weight [...] in urine?denies.?burning on urination?denies.?difficulty urinating?denies.?discharge?denies.?dysuria?denies.? * Medical History:? * Medications:?TakingZepbound 10 MG/0.5ML Solution Auto-injector 0.5 mL Subcutaneous weekly Gabapentin 300 MG Capsule 1 capsule Orally Once a day Cialis 5 MG Tablet 1 tablet as needed Orally Once a day Meloxicam 15 MG Tablet 1 tablet Orally Once a day Ondansetron HCl 4 MG Tablet 1 tablet Orally twice a day Ezetimibe 10 MG Tablet 1 tablet Orally Once a day cloNIDine HCl 0.1 MG Tablet 1 tablet Orally Once a day Sertraline HCl 50 MG Tablet 1 tablet Orally Once a day Taking Zepbound 10 MG/0.5ML Solution Auto-injector 0.5 mL Subcutaneous weekly Taking Gabapentin 300 MG Capsule 1 capsule Orally Once a day Taking Cialis 5 MG Tablet 1 tablet as needed Orally Once a day Taking Meloxicam 15 MG Tablet 1 tablet Orally Once a day Taking Ondansetron HCl 4 MG Tablet 1 tablet Orally twice a day Taking Ezetimibe 10 MG Tablet 1 tablet Orally Once a day Taking cloNIDine HCl 0.1 MG Tablet 1 tablet Orally Once a day Taking Sertraline HCl 50 MG Tablet 1 tablet Orally Once a day Not-TakingZepbound 7.5 MG/0.5ML Solution Auto-injector 0.5 mL Subcutaneous weekly Doxycycline Hyclate 100 MG Tablet 1 tablet Orally 2 TIMES A DAY chlordiazePOXIDE HCl 25 MG Capsule 1 capsule Orally Twice a day Acamprosate Calcium 333 MG Tablet Delayed Release 2 tablets Orally Three times a day tiZANidine HCl 4 MG Tablet 1 tablet at bedtime as needed Orally Once a day Wegovy 2.4 MG/0.75ML Solution Auto-injector 0.75 mL Subcutaneous once a week Ondansetron HCl 4 MG Tablet 1 tablet Orally twice a day Naltrexone HCl 50 MG Tablet 1 tablet Orally Once a day Meloxicam 15 MG Tablet 1 tablet Orally Once a day tiZANidine HCl 4 MG Tablet 1 tablet as needed Orally Three times a day Medication List reviewed and reconciled with the patientNot-Taking Zepbound 7.5 MG/0.5ML Solution Auto-injector 0.5 mL Subcutaneous weekly Not-Taking Doxycycline Hyclate 100 MG Tablet 1 tablet Orally 2 TIMES A DAY Not-Taking chlordiazePOXIDE HCl 25 MG Capsule 1 capsule Orally Twice a day Not-Taking Acamprosate Calcium 333 MG Tablet Delayed Release 2 tablets Orally Three times a day Not-Taking tiZANidine HCl 4 MG Tablet 1 tablet at bedtime as needed Orally Once a day Not-Taking Wegovy 2.4 MG/0.75ML Solution Auto-injector 0.75 mL Subcutaneous once a week Not-Taking Ondansetron HCl 4 MG Tablet 1 tablet Orally twice a day Not-Taking Naltrexone HCl 50 MG Tablet 1 tablet Orally Once a day Not-Taking Meloxicam 15 MG Tablet 1 tablet Orally Once a day Not-Taking tiZANidine HCl 4 MG Tablet 1 tablet as needed Orally Three times a day Medication List reviewed and reconciled with the patient * Allergies:?N.K.D.A.no[Allerg ies Verified] Objective: * Vitals:?Temp:96.9F, Oxygen s at %:99%, HR:97/min, BP:120/78mm Hg, Wt:316.5lbs, BMI:45.41Index, Ht: 70 in. * Examination: ???General Examination: [...] and lower extremities, sensory exam intact.?FEMALE GENITOURINARY:?__.?MALE GENITOURINARY:?Negative cremaster negative prehn, did not appreciate inguinal hernia.?PODIATRIC:?Normal.?Glass Worker?Kimi.? Assessment: * Assessment: 1.?Morbid (severe) obesity d ue to excess calories - E66.01 (Primary)???2.?Dietary counseling and surveillance - Z71.3???3.?Mixed hyperlipidemia - E78.2???4.?Unilateral inguinal hernia, without obstruction or gangrene, not specified as recurrent - K40.90??? Mr. Daugherty is a 39-year-old gentleman with testicular hypofunction and morbid obesity here for medical weight management. We saw him in June. He gained 2?lbs since last visit. Plan is as follows: Dietary recommendations. Food recall was done today and patient advised to be on low calorie, low carbohydrate diet. Restrict calories to less than 1500 kcal in 24 hours. Low glycemic index foods and encouraged. Meal replacements were recommended. Advised to use stut-jlt-yfwbuxu multivitamins and vitamin D. Advised to use calorie counter and adhere to portion control. Monthly goal is to lose 4-6 pounds Pharmacotherapy. Start Zepbound 10MG/0.5ML weekly, He is not interested in increasing [...] than 50% of time was spent counseling Hyperlipidemia - Previous lipid that is abnormal.? Check lipid panel. Dietary?modification discussed as well Question of sports hernia/inguinal hernia - Physical examination is unremarkable.? He states that he has been diagnosed with this condition couple years ago.? There is no records of this diagnosis.? - Physical examination is negative for prehn, cremaster, no bulging hernia with Valsalva.? I will get an ultrasound of the soft tissue groin area and based on the results we will further manage. I have rendered the services for this patient under direct supervision of Dr. Fernandez, who did not see the patient but was available upon request Plan: * Treatment: * Procedure Codes:? * Follow Up:?4 Weeks-WM * Images: * Sign off status: Completed true * Appointment Provider:?Angie Patel Da te:?01/08/2025 Generated for Toro mena/Du/Ninaitting on:?01/09/2025 03:20 PM EDT History and Physical Notes * HPI (History of Present Illness) Category Sub-Category Detail Notes Category Not es F/U Obesity Patient is here for f/u on weight management He also states that a couple years ago he was diagnosed with a sports hernia, he states that a couple days ago he turned the wrong way and ever since he has been experiencing discomfort in the groin area. He states that it happens occasionally. Patient has lost weight He gained 2lbs o n our scale, patient is on Meal replacement non compl iant with low calorie diet Patient is exercising Denies frequency of exercise patient on pharmacotherapy Zepbound 7.5M G/0.5ML tolerating medication yes Sleep pattern Good Examination [...] Normal BREASTS: __ MUSCULOSKELETAL: normal MALE GENITOURINARY: Negative cremaster n egative prehn, did not appreciate inguinal hernia FEMALE GENITOURINARY: __ ORAL CAVITY: Normal PODIATRIC: Normal Psychiatry Normal OROPHARYNX Normal SINUSES Normal Glass Worker Kimi
== END 2025-01-09 13:17 | disposition home or self-care (01) ==
LOC: HO.NEURO 13:16
PROVIDERS: Visit Provider Orthopaedic Surgery
DX: G56.13 Other lesions of median nerve, bilateral upper limbs (principal)
CPT/HCPCS: 95860; 95886; 95911

== ENCOUNTER → 2025-01-09 13:19 | Outpatient (BNV) | payer OTHER, SELFPAY | PROVIDERS: Visit Provider Physical Medicine & Rehabilitation | DX: G56.03 Carpal tunnel syndrome, bilateral upper limbs (principal) | CPT/HCPCS: 95886; 95911 ==

== ENCOUNTER 2025-03-26 14:49 | Outpatient (AMB) | payer OTHER, SELFPAY ==
--- NOTE | 2025-03-26 14:50 | A.OFFVIS_ITS ---
Vital Signs 03/26/25 14:58 Height 6 ft Weight 308 lb BMI 41.8 BP 119/78 Blood Pressure Location Rt brachial Position Sitting Pulse 88 Intake Visit Reasons: unilateral ingunial hernia Intake Note: Patient is seen in office for evaluation of a right inguinal hernia. Present for 12 yrs. Pt c/o: only painful when taking random misstep. 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 He feels the hernia has been present for least 12 years with intermittent pain triggered by awkward movements. This is now causing pain which seems to be increasing in severity over the last several months. He denies nausea, vomiting, fever, chills, diarrhea or constipation. He denies a previous history of hernia surgery. Patient previously underwent evaluation with an ultrasound which is not available at the time of this examination. He reports that hernia was identified on this study. [facility] Medical History Sleep apnea Neuropathy Surgical History History of excision of pilonidal cyst Hx of removal of cyst Social History Patient Tobacco Use Status: Current someday Tobacco user Cigarette Packs Per Day: 1 Cigarettes Per Day: 20 Current occupational status: employed 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, [employer] Review of Systems Const All systems reviewed & are unremarkable except as noted in HPI and below Physical Exam Vital Signs: Last Vital Signs Pulse 88 03/26/25 14:58 BP 119/78 03/26/25 14:58 BMI result Body Mass Index 41.8 Const General: cooperative and no acute distress Nutritional Appearance: well nourished Orientation/consciousness: patient oriented x3 Limitations: no limitations HEENT Head: Yes normocephalic and Yes atraumatic Ears: hearing grossly normal bilaterally Resp Effort & Inspection: normal respiratory effort, no audible wheezes, no cough and no respiratory distress Cardio Jugular venous distension: no JVD GI Other: Examination in the standing position with Valsalva maneuvers does reveal a right inguinal hernia palpated within the inguinal canal which is minimally tender to palpation. Hernia reduces with light pressure. No hernias noted in the left side. Inspection: Yes normal to inspection and Yes Abdominal panniculus present Palpation (GI): Soft to palpation, nontender and no guarding Skin Other: Warm, dry, no rash Neuro General: patient oriented x3 Extrem General: Yes no clubbing, cyanosis or edema Assessment & Plan Assessment & Plan (1) Right inguinal hernia: Code(s): K40.90 - Unilateral inguinal hernia, without obstruction or gangrene, not specified as recurrent Category: Medical Plan 39-year-old male patient presenting for evaluation of a right inguinal hernia. This has been present for many years in his now causing more discomfort. He has requested repair of this right inguinal hernia. After discussion of the procedure, risks, and alternatives, he consents to repair of the right inguinal hernia with mesh. This will be performed as a short-stay surgery. Coding Level of Care Code New Pt Level 4 (08661) Diagnoses Right inguinal hernia K40.90
[2025-03-26 14:58] VITALS: BP 119/78; PULSE 88; BMI 41.8
--- OUTSIDE RECORDS SUMMARY | 2025-03-26 18:02 | XMS_ITS | Clinical Summary ---
Author Organization [facility] Address [address] [place] [address] Care Team Providers Care Booster Plant Operator Name Role Phone Dusty Pike MD Primary Care Provider [phone] Medical History Medical History Date Comments ETOH [...] Vaccine (2023-2 5 season) 2024 Influenza Vaccine (Season Ended) 2025 HIB Vaccines Aged Out No longer eligi [...] age to complete this topic Care Teams Booster Plant Operator Relationship Specialty Start Date End Date Dusty Pike MD [address] [place] [id number] PCP - General Internal Medicine 10/05/21
== END 2025-03-26 15:07 | disposition home or self-care (01) ==
LOC: HO.HGS 14:49
PROVIDERS: Visit Provider Surgery
DX: K40.90 Unilateral inguinal hernia, without obstruction or gangrene, not specified as recurrent (principal)
CPT/HCPCS: 99204

== ENCOUNTER 2025-04-15 | Outpatient (REF) | payer OTHER, SELFPAY ==
--- OUTSIDE RECORDS SUMMARY | 2025-03-27 14:26 | XMS_ITS | Clinical Summary ---
Author Organization [facility] Address [address] [place] [address] Care Team Providers Care Fire Battalion Chief Name Role Phone Dusty Pike MD Primary Care Provider [phone] Medical History Medical History Date Comments ETOH [...] age to complete this topic Care Teams Fire Battalion Chief Relationship Specialty Start Date End Date Dusty Pike MD [address] [place] [phone] PCP - General Internal Medicine 10/05/21
--- NOTE | 2025-04-15 | ECG_ITS ---
Test Reason : PRE OP Blood Pressure : */* mmHG Vent. Rate : 77 BPM Atrial Rate : 77 BPM P-R Int : 126 ms QRS Dur : 86 ms QT Int : 360 ms P-R-T Axes : 30 51 40 degrees QTcB Int : 407 ms Normal sinus rhythm Normal ECG No previous ECGs available Referred By: Tanna Grijalva Electronically Signed By: LUCRECIA CARRERO
[2025-04-15 10:09] VITALS: BMI 43.0
[2025-04-15 10:13] VITALS: BP 121/67; PULSE 83; RESP 16; O2SAT 96
--- NOTE | 2025-04-15 10:28 | HO.ANESPROP2 ---
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 PMFSH Active Problems Active Problems: All Active Problems Right inguinal hernia (Acute) Bilateral hand numbness (Acute) Past Medical History Medical History (Updated 04/15/25 @ 10:50 by Zulema Conteh, RN) Hx of syncope (~2020) Hidradenitis suppurativa Carpal tunnel syndrome on both sides Anxiety Personal history of COVID-19 (03/2022) Testicular hypofunction External hemorrhoids Sleep apnea Neuropathy Family History Family history of problems with anesthesia: No Surgical History Surgical History (Updated 04/15/25 @ 10:06 by Zulema Conteh RN) History of excision of pilonidal cyst (~2017) Hx of removal of cyst (~2019) History of Problems with Anesthesia: No Social History Social History Are you a primary care management coordinator to a significant other at home: No Do you presently have visiting nurse or other home services: No Patient Tobacco Use Status: Current everyday Tobacco user Tobacco use type: Cigarette Cigarette Packs Per Day: 1 Cigarettes Per Day: 20.0 Current occupational status: employed 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, [employer]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 Allergies Allergy/AdvReac Type Severity Reaction Status Date / Time No Known Allergies Allergy Verified 04/16/25 13:36 Home Medications ?Medication ?Instructions ?Recorded ?Confirmed ?Last Taken ?Type tirzepatide (weight loss) 12.5 12.5 mg subcut QWEEK 04/15/25 04/15/25 Unknown History mg/0.5 mL subcutaneous pen injector (Zepbound) Exam Height,Weight and Vital Signs: Height 6 ft Weight 143.789 kg Last Vital Signs Pulse 83 04/15/25 10:13 Resp 16 04/15/25 10:13 BP 121/67 04/15/25 10:13 Pulse Ox 96 04/15/25 10:13 O2 Del Method Room Air 04/15/25 10:13 Pertinent Lab Results Pertinent Lab Results: Lab Results 04/15/25 Range/Units 10:47 WBC 9.6 (4.8-10.8) X10*3/uL RBC 4.57 L (4.60-5.80) X10*6/uL Hgb 14.9 (14.0-18.0) g/dl Hct 42.1 (42.0-52.0) % MCV 92.1 (80.0-98.0) fL MCH 32.6 (27.0-33.0) pg MCHC 35.4 (31.0-36.0) g/dl RDW 13.9 (11.0-16.0) % Plt Count 202 (160-400) X10*3/uL MPV 9.4 (9.4-12.4) fL Absolute Nucleated RBC 0.000 (0.0-0.012) X10*3/uL Nucleated RBC % (auto) 0.0 (0.0-0.2) /100WBC Sodium 138 (135-145) mmol/L Potassium 4.3 (3.3-5.1) mmol/L Chloride 108 (96-108) mmol/L Carbon Dioxide 23 (22-29) mmol/L Anion Gap 11 L (12-20) BUN 11 (9-16) mg/dL Creatinine 0.77 (0.5-1.4) mg/dL Estim Creat Clear Calc 185.8 Estimated GFR > 60 Random Glucose 101 (60-115) mg/dL Calcium 8.7 (8.4-10.2) mg/dL Narrative Narrative: EKG 04/2025 Vent. Rate : 77 BPM Atrial Rate : 77 BPM P-R Int : 126 ms QRS Dur : 86 ms QT Int : 360 ms P-R-T Axes : 30 51 40 degrees QTcB Int : 407 ms Normal sinus rhythm Normal ECG No previous ECGs available Airway Mallampati Class: II TM Dist: >3cm Neck ROM: Full Loose/Missing/Broken Teeth: No (#8&9 crowned) Heart: RRR Lungs: CTAB Assessment and Plan Assessment Anesthesia Assessment: Anesthesia Plan Discussed and PAT Visit Final Anesthetic Review Family History of Problems with Anesthesia: No History of Problems with Anesthesia: No
[2025-04-15 11:01] LABS: Hematocrit 42.1 % (42.0-52.0); Hemoglobin 14.9 g/dl (14.0-18.0); Mean Corpuscular HGB Conc 35.4 g/dl (31.0-36.0); Mean Corpuscular Hemoglobin 32.6 pg (27.0-33.0); Mean Corpuscular Volume 92.1 fL (80.0-98.0); NRBC Abs Auto 0.000 X10*3/uL (0.0-0.012); NRBC Pct Auto 0.0 /100WBC (0.0-0.2); Platelet Count 202 X10*3/uL (160-400); Red Blood Count 4.57 X10*6/uL (4.60-5.80); White Blood Count 9.6 X10*3/uL (4.8-10.8)
[2025-04-15 11:48] LABS: Anion Gap 11 (12-20); Blood Urea Nitrogen 11 mg/dL (9-16); Calcium 8.7 mg/dL (8.4-10.2); Carbon Dioxide 23 mmol/L (22-29); Chloride 108 mmol/L (96-108); Creatinine Clr Calc Pharmacy 185.8; Estimated Glomerular Filt Rate > 60; Potassium 4.3 mmol/L (3.3-5.1); Sodium 138 mmol/L (135-145)
--- OUTSIDE RECORDS SUMMARY | 2025-06-05 12:23 | XMS_ITS | Clinical Summary ---
Author Organization [facility] Address [address] [place] [address] Care Team Providers Care Procurement Professional Logistics Name Role Phone Dusty Pike MD Primary [...] age to complete this topic Care Teams Procurement Professional Logistics Relationship Specialty Start Date End Date Dusty Pike MD [address] [place] [id number] PCP - General Internal Medicine 10/05/21
== END 2025-04-15 00:01 | disposition home or self-care (01) ==
LOC: HO.PAT
PROVIDERS: Nurse Practitioner; PCP Hospitalist; Visit Provider Surgery
DX: K40.90 Unilateral inguinal hernia, without obstruction or gangrene, not specified as recurrent (principal)
CPT/HCPCS: 36415; 80048; 85027; 93005

== ENCOUNTER → 2025-04-15 10:56 | Outpatient (BNV) | payer OTHER, SELFPAY | PROVIDERS: PCP Hospitalist; Visit Provider Internal Medicine | DX: Z01.810 Encounter for preprocedural cardiovascular examination (principal) | CPT/HCPCS: 93010 ==

== ENCOUNTER 2025-04-16 13:31 | Outpatient (AMB) | payer OTHER, SELFPAY ==
--- NOTE | 2025-04-16 13:35 | MHC.OFFVIS ---
Intake Visit Reasons: OV - Bilateral Hand EMG Review Intake Note: Ayaz is a 39 year old right hand dominant male who presents today for a follow up of his Bilateral Hand Numbness & EMG Review. Patient reports that he is having about equal symptoms in both of his hands. MPRESSION: 1. This is an abnormal study. 2. There is electrodiagnostic evidence for bilateral moderate-severe median neuropathy at the wrist, consistent with carpal tunnel syndrome. Left worse than right. 3. There is no electrodiagnostic evidence for ulnar neuropathy, brachial plexopathy, or cervical radiculopathy. Allergies No Known Allergies Allergy (Verified 04/16/25 13:36) HPI HPI OV - Bilateral Hand EMG Review: Details: Ayaz is a 39 year old right hand dominant male who presents today for a follow up of his Bilateral Hand Numbness & EMG Review. Patient reports that he is having about equal symptoms in both of his hands. Reports numbness and tingling is intermittent, daily, and worse at night. MPRESSION: 1. This is an abnormal study. 2. There is electrodiagnostic evidence for bilateral moderate-severe median neuropathy at the wrist, consistent with carpal tunnel syndrome. Left worse than right. 3. There is no electrodiagnostic evidence for ulnar neuropathy, brachial plexopathy, or cervical radiculopathy. [facility] Medical History (Updated 04/18/25 @ 22:05 by KEHINDE Chavez) Hx of syncope (~2020) Hidradenitis suppurativa Carpal tunnel syndrome on both sides Anxiety Personal history of COVID-19 (03/2022) Testicular hypofunction External hemorrhoids Sleep apnea Neuropathy Surgical History (Updated 04/15/25 @ 10:06 by Zulema Conteh RN) History of excision of pilonidal cyst (~2017) Hx of removal of cyst (~2019) Social History Are you a primary nurse behavioral health care to a significant other at home: No Do you presently have visiting nurse or other home services: No Patient Tobacco Use Status: Current everyday Tobacco user Tobacco use type: Cigarette Cigarette Packs Per Day: 1 Cigarettes Per Day: 20.0 Current occupational status: employed 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, [employer] Review of Systems Const All systems reviewed & are unremarkable except as noted in HPI and below Physical Exam Const General: cooperative, healthy appearing and no acute distress Orientation/consciousness: patient oriented x3 HEENT Head: Yes normocephalic and Yes atraumatic Eyes EOM: EOMs intact bilaterally Resp Effort & Inspection: normal respiratory effort and able to speak in complete sentences Cardio Jugular venous distension: no JVD Skin General skin exam: turgor normal Rashes: no rashes Neuro General: patient oriented x3 Extrem Other: Evaluation of Bilateral Upper Extremity: The patient is alert, oriented, and in no acute distress Neuro: Median, Ulnar, Radial nerves motor and sensory intact and sensation is normal to the tips of all digits. Some numbness to the superficial radial nerve distribution of the left wrist No thenar or intrinsic wasting Good APB muscle belly firing and good finger cross Vascular: Cap refill brisk ROM: He can make a fist and extend all his digits No locking or catching Skin: No lacerations or abrasions. General: No Ecchymosis. No Erythema or evidence of infection. Psych Appearance: grossly normal Affect: normal affect Attitude: cooperative Assessment & Plan Assessment & Plan (1) Carpal tunnel syndrome on both sides: Code(s): G56.03 - Carpal tunnel syndrome, bilateral upper limbs Category: Medical Plan 1. Carpal tunnel syndrome, left Symptoms intermittent, daily, worse at night I educated the patient about the condition. I discussed both operative and nonoperative treatment options. The patient would like to proceed with surgery. The risks and benefits of operative treatment were discussed with the patient and the patient wishes to proceed with surgery. These risks include, but are not limited to, risk of damage to blood vessels, nerves, tendons, infection, recurrence, incomplete relief of preoperative symptoms, persistent pain, possible need for further surgery, and the risks associated with regional blocks and/or anesthesia. Plan is to take the patient to the operating room at some point in the next few weeks for the following procedures: 1. Left carpal tunnel release under local All of the preoperative paperwork including the consent was discussed today. All of the patient's questions were answered in the clinic today. The patient understands that they will be in contact with our surgical garment inspector to discuss scheduling their procedure. Patient denies diabetes, blood thinners, asthma, heart issues, lung issues, kidney issues, or current smoking. Coding Level of Care Code Est Pt Level 4 (03890) Diagnoses Carpal tunnel syndrome on both sides G56.03
--- OUTSIDE RECORDS SUMMARY | 2025-04-16 14:53 | XMS_ITS | Clinical Summary ---
Author Organization [facility] Address [address] [place] [address] Care Team Providers Care Primary Teaching Assistant Name Role Phone Dusty Pike MD Primary Care Provider [phone] Medical History Medical History Date Comments ETOH [...] 5 Years) and At-Risk Patients (6 to 49 Years) (1 of 2 - PCV) 2002 Cholesterol Screening (Lipid Panel) 09/04/2022 Depression Screening 09/04/2022 HIV Screening 09/04/2022 Hepatitis C Screening 09/04/2022 Social Influencers of Health Screening 09/04/2022 COVID-19 Vaccine ( - 2023-2 5 season) 2024 Influenza Vaccine (#1) 2025 HIB Vaccines Aged Out No longer [...] age to complete this topic Care Teams Primary Teaching Assistant Relationship Specialty Start Date End Date Dusty Pike MD [address] [place] [id number] PCP - General Internal Medicine 10/05/21
== END 2025-04-16 14:26 | disposition home or self-care (01) ==
LOC: HO.HOS 13:32
DX: G56.03 Carpal tunnel syndrome, bilateral upper limbs (principal)
CPT/HCPCS: 99214

== ENCOUNTER 2025-04-26 11:43 | Outpatient (AMB) | payer OTHER, SELFPAY ==
--- NOTE | 2025-04-26 11:45 | A.OFFVIS_ITS ---
Vital Signs 04/26/25 11:53 Height 6 ft Weight 319 lb BMI 43.3 BP 115/73 Blood Pressure Location Rt brachial Position Sitting Pulse 93 Intake Visit Reasons: HS flare up Intake Note: Patient here concerned with HS flare on abdomen and groin area. Patient c/o: some areas area opened and oozing. Not on txt. ~Of note: Unilateral inguinal hernia repair scheduled TuesdayApril 29. 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 Tolentino presents with concern of a hidradenitis flare. He reports multiple frequent flares in the past. He does not use hibiclens but uses tree tea oil. He is not on any other meds for it and was hoping his flares would improve as he lost weight. He reports noting multiple painful lesions of his right groin for a couple days now. One is draining a small amount of yellowish fluid. He got concerned as he is scheduled for a right inguinal hernia repair on Tuesday. He denies fever, chills, nausea, vomiting. [facility] Medical History (Updated 04/26/25 @ 12:16 by Ashley Jonas PA-C) Hx of syncope (~2020) Hidradenitis suppurativa Carpal tunnel syndrome on both sides Anxiety Personal history of COVID-19 (03/2022) Testicular hypofunction External hemorrhoids Sleep apnea Neuropathy Surgical History (Updated 04/15/25 @ 10:06 by Zulema Conteh RN) History of excision of pilonidal cyst (~2017) Hx of removal of cyst (~2019) Social History Are you a primary career development associate to a significant other at home: No Do you presently have visiting nurse or other home services: No Patient Tobacco Use Status: Current everyday Tobacco user Tobacco use type: Cigarette Cigarette Packs Per Day: 1 Cigarettes Per Day: 20.0 Current occupational status: employed 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, [employer] Review of Systems Const All systems reviewed & are unremarkable except as noted in HPI and below Physical Exam Vital Signs: Last Vital Signs Pulse 93 04/26/25 11:53 BP 115/73 04/26/25 11:53 BMI result Body Mass Index 43.3 Const General: comfortable, no acute distress and alert Nutritional Appearance: obese Orientation/consciousness: patient oriented x3 Resp Effort & Inspection: normal respiratory effort GI Other: lower abdomen and pannus with extensive scarring and discoloration right groin with scarring, tunneling, multiple tender, inflammed nodules and both closed and open comedones with significant amount of induration extending into the right scrotal region small amount of erythema localized to open comodones no significant drainage noted area tender to palpation, no fluctuant collections noted Skin Other: as noted above Neuro General: patient oriented x3 and moves all extremities Assessment & Plan Assessment & Plan (1) Hidradenitis suppurativa: Code(s): L73.2 - Hidradenitis suppurativa Category: Medical Plan 39 year old male presenting with hidradenitis suppurative flare of right groin. No palpable fluctuant collections. Will prescribe oral doxycycline. Also recommended hibiclens use daily. Given the active infection at the hernia repair site, recommended rescheduling his elective hernia repair on Tuesday. He is comfortable with this plan. We will contact him with rescheduled date. He will call/return if he has no improvement in his symptoms. Medications: New doxycycline hyclate 100 mg PO BID 14 caps 0RF Coding Level of Care Code Global (51544) Diagnoses Hidradenitis suppurativa L73.2
--- OUTSIDE RECORDS SUMMARY | 2025-04-26 11:47 | XMS_ITS | Clinical Summary ---
Author Organization [facility] [place] Address [address] [place] [address] Care Team Providers Care Funeral Limousine Driver Name Role Phone Dusty Pike MD Primary Care Provider [phone] Medical History Medical History Date Comments ETOH [...] PCV) 2002 Cholesterol Screening (Lipid Panel) 09/04/2022 HIV Screening 09/04/2022 Hepatitis C Screening 09/04/2022 Social Influencers of Health Screening 09/04/2022 COVID-19 Vaccine (2023-2 5 season) 2024 Depression Screening 10/03/2024 Influenza Vaccine (#1) 2025 HIB Vaccines Aged [...] age to complete this topic Care Teams Funeral Limousine Driver Relationship Specialty Start Date End Date Dusty Pike MD [address] [place] [id number] PCP - General Internal Medicine 10/05/21
--- OUTSIDE RECORDS SUMMARY | 2025-04-26 11:47 | XMS_ITS | Patient Health Record ---
Author Organization [facility] Address [address] [place] [address] Care Team Providers Care Archaeology Professor Name Role Phone JESSICA FERNANDEZ Primary Care Provider [phone] Angie Patel Unavailable [phone] Allergies No Known Allergies Results Component Value Reference Range Notes CBC With Differential/Platel et-[id number] Reviewed date:07/10/2024 02:36:26 PM Interpretation: Performing Lab:[facility], [address] [place] [address], [place], Phone - [phone], Director - Carli Notes/Report: Test(s) 683523-Kkxbredbxefnr Acid, Serum was developed and its performance characteristics determined by [employer]. It has not been cleared or approved [...] % Immature Grans (Abs) 0.0 0.0-0.1 x10E3/uL Homocyst(e)ine-117260 Reviewed date:07/10/2024 10:19:56 AM Interpretation: Performing Lab:[facility], [address] [place] [address], Phone - [phone], Director - [facility] Notes/Report: Test(s) 702635-Zdqpbahdydwcr Acid, Serum was developed and its performance characteristics determined by [facility]. It has not been cleared or approved by the Food and Drug Administration. Homocyst(e)ine 10.5 0.0-14.5 umol/L Methylmalonic Acid, Serum-70 6961 Reviewed date:07/10/2024 02:36:11 PM Interpretation: Performing Lab:[facility], [address] [place] [address], Phone - [phone], Director - [facility] Notes/Report: Test(s) 996761-Xpxlimkpkmcpc Acid, Serum was developed and its performance characteristics determined by [facility]. It has not been cleared or approved by the Food and Drug Administration. Methylmalonic Acid, Serum 116 0-378 nmol/L Lipid Panel-[id number] Reviewed date:07/10/2024 02:13:16 PM Interpretation: Performing Lab:[facility], [address] [place] [address], Phone - [phone], Director - [facility] Notes/Report: Test(s) 527718-Rjrqyffqripqm Acid, Serum was developed and its performance characteristics determined by [facility]. It has not been cleared or approved by the Food and Drug Administration. Cholesterol, Total 225 100-199 mg/dL Triglycerides 247 0-149 mg/dL HDL Cholesterol 44 >39 mg/dL VLDL Cholesterol Harvey 44 5-40 mg/dL LDL Chol Calc ([facility] [[email or web address]]) 137 0-99 mg/dL Ferritin-[id number] Reviewed date:07/10/2024 02:36:33 PM Interpretation: Performing Lab:[facility], Phone - [phone], [facility] Notes/Report: Test(s) 097084-Xcjzavrollcay Acid, Serum was developed and its performance characteristics determined by [facility]. It has not been cleared or approved by the Food and Drug Administration. Ferritin 619 30-400 ng/mL TSH-261365 Reviewed date:07/10/2024 02:08:55 PM Interpretation: Performing Lab:[facility] [address], Phone - [phone], [facility] Notes/Report: Test(s) 489062-Bbtpcixwbqptj Acid, Serum was developed and its performance characteristics determined by [facility]. It has not been cleared or approved by the Food and Drug Administration. TSH 1.820 0.450-4.500 uIU/mL Magnesium-792204 Reviewed date:07/10/2024 02:36:18 PM Interpretation: Performing Lab:[facility] [address], Phone - [phone], [facility] Notes/Report: Test(s) 056921-Qcqjkaqzxqlyx Acid, Serum was developed and its performance characteristics determined by [facility]. It has not been cleared or approved by the Food and Drug Administration. Magnesium 2.2 1.6-2.3 mg/dL Iron and TIBC-870738 Reviewed date:07/10/2024 03:23:58 PM Interpretation: Performing Lab:[facility] [address], Phone - [phone], [facility] Notes/Report: Test(s) 179710-Mtyljswoqqoyl Acid, Serum was developed and its performance characteristics determined by [facility]. It has not been cleared or approved by the Food and Drug Administration. Iron Bind.Cap.(TIBC) 331 250-450 ug/dL UIBC 272 111-343 ug/dL Iron 59 38-169 ug/dL Iron Saturation 18 15-55 % Vitamin B12 and Folate-11403 0 Reviewed date:07/10/2024 03:26:58 PM Interpretation: Performing Lab:[facility] [address], Phone - [phone], [facility] Notes/Report: Test(s) 626342-Bphbgzkxhpcnd Acid, Serum was developed and its performance characteristics determined by [facility]. It has not been cleared or approved by the Food and Drug Administration. Vitamin B12 681 845-4348 pg/mL Folate (Folic Acid), Serum 8.9 >3.0 ng/mL A serum folate concentration of less than 3.1 ng/mL is considered to represent clinical deficiency. Reason For Referral Reason Evaluation and manag ement Diagnosis 1 Encounter for screen ing for malignant neoplasm of skin (Z12.83) Referral Organization [facility] Referring Provider First Name JESSICA Referring Provider Last Name DAYANARA Referring Provider [facility] Referred Provider Specialty Dermatology General Notes Referral sent to [facility] ([address] [place] [address] ) - Office will call patient for scheduling., Shante Rodriguez 07/31/2024 04:42:01 PM > Referral Priority Routine Reason B/L CTS Please casey luate and treat Diagnosis 1 Carpal tunnel syndro me, bilateral upper limbs (G56.03) Referral Organization [facility] Referring Provider First Name JESSICA Referring Provider Last Name DAYANARA Referring Provider Speciality [facility] Referred Provider Specialty Hand Surgery General Notes refarral was faxed t o [facility], please contact patient for scheduling.Michaela Rashida 10/15/2024 11:51:06 AM > Referral Priority Routine Reason PLEASE EVALUATE AND TREAT Diagnosis 1 Carpal tunnel syndro me, bilateral upper limbs (G56.03) Referral Organization [facility] Referring Provider First Name Angie Referring Provider Last Name Jorge Referred Provider Specialty Orthopedic S urgery General Notes referral was faxed t o [facility]. Please contact patient for scheduling, Kimi Jennings 11/06/2024 04:46:55 PM > Referral Priority Routine Reason please evaluate and treat Diagnosis 1 Hidradenitis suppura tiva (L73.2) Referral Organization [facility] Referring Provider First Name Angie Referring Provider Last Name Jorge Referred Provider Specialty Dermatology General Notes referral was faxed t o [facility]. please contact patient for scheduling.Michaela Rashida 11/06/2024 04:45:30 PM > Referral Priority Routine Reason right sided inguinal hernia. Please evaluate and treat Please evaluate and treat Diagnosis 1 Unilateral inguinal hernia, without obstruction or gangrene, recurrent (K40.91) Referral Organization [facility] Referring Provider First Name Angie Referring Provider Last Name Jorge Referred Provider Specialty General Surg elda General Notes Please call the [facility] to schedule the appointment, Vivek ([facility]) General Surgery. Please contact them at [phone], Michaelle Orozco 02/14/2025 04:10:21 PM > Referral Priority Routine Medications Medication SIG (Take, Route, Frequency, Duration) Notes Start Date End Date Status Ondansetron HCl 4 MG 1 tablet Orally twi ce a day; Duration: 10 days 07/24/2024 Active Meloxicam 15 MG 1 tablet Orally Once a day; Duration: 30 days 06/05/2024 Active Ondansetron HCl 4 MG 1 tablet Orally twi ce a day; Duration: 10 02/23/2024 Not-Taking Sertraline HCl 50 MG 1 tablet Orally Onc e a day; Duration: 30 days 11/06/2024 Active Omeprazole 20 MG 1 capsule 1/2 to 1 hour before morning meal Orally Once a day; Duration: 30 days 02/12/2025 Active cloNIDine HCl 0.1 MG 1 tablet Orally Onc e a day; Duration: 30 days 06/28/2024 Active tiZANidine HCl 4 MG 1 tablet as needed Orally Three times a day; Duration: 7 days 11/22/2022 Not-Taking Doxycycline Hyclate 100 MG 1 tablet Oral ly 2 TIMES A DAY; Duration: 14 07/24/2024 Not-Taking Zepbound 7.5 MG/0.5ML 0.5 mL Subcutaneou s weekly; Duration: 30 11/06/2024 Not-Taking Zepbound 10 MG/0.5ML 0.5 mL Subcutaneous weekly; Duration: 30 days 12/11/2024 Active Acamprosate Calcium 333 MG 2 tablets Ora lly Three times a day; Duration: 30 06/28/2024 Not-Taking chlordiazePOXIDE HCl 25 MG 1 capsule Ora lly Twice a day; Duration: 5 days 06/28/2024 Not-Taking Cialis 5 MG 1 tablet as needed Orally Once a day; Duration: 30 days Active Wegovy 2.4 MG/0.75ML 0.75 mL Subcutaneou s once a week; Duration: 30 days 12/29/2022 Not-Taking Gabapentin 300 MG 1 capsule Orally Onc e a day; Duration: 30 days 12/07/2023 Active tiZANidine HCl 4 MG 1 tablet at bedtime as needed Orally Once a day; Duration: 14 days 06/05/2024 Not-Reena g Zepbound 12.5 MG/0.5ML 0.5 mL Subcutaneo us once a week; Duration: 30 days 03/12/2025 Active Ezetimibe 10 MG 1 tablet Orally Once a day; Duration: 90 days 07/10/2024 Active Meloxicam 15 MG 1 tablet Orally Once a day; Duration: 30 day(s) 11/22/2022 Not-Taking Topiramate 25 MG 1 tablet Orally twic e a day; Duration: 30 days 03/12/2025 Active Naltrexone HCl 50 MG 1 tablet Orally Onc e a day; Duration: 30 days 11/02/2023 Not-Reena g Social History Tobacco Use: Social History Observation [...] Status Risk Notes Problem Morbid obesity (disorder) (924596941) Morbid (severe) obesity due to excess calories (E66.01) Active confirmed Problem Mixed hyperlipidemia (807027076) Mixed hyperlipidemia (E78.2) Active confirmed Problem Hyperlipidemia (89909059) Hyperlipidemia, unspecified (E78.5) Active confirmed Problem Alcohol dependence (79911354) Alcohol dependence, uncomplicated (F10.20) Active confirmed Problem Tobacco user (968556478) Nicotine dependence, cigarettes, uncomplicated (F17.210) Active confirmed Problem Obstructive sleep apnea syndrome (disorder) (78321151) Obstructive sleep apnea (adult) (pediatric) (G47.33) Active confirmed Problem Carpal tunnel syndrome (26058572) Carpal tunnel syndrome, left upper limb (G56.02) Active confirmed Problem Polyneuropathy (05651676) Polyneuropathy, unspecified (G62.9) Active confirmed Problem Constipation (61770497) Constipation, unspecified (K59.00) Active confirmed Problem Hidradenitis suppurativa (88043852) Hidradenitis suppurativa (L73.2) Active confirmed Problem Degeneration of thoracolumbar intervertebral disc (11962536) Other intervertebral disc degeneration, thoracolumbar region (M51.35) Active confirmed Problem Plantar fascial fibromatosis (67911942) Plantar fascial fibromatosis (M72.2) Active confirmed Problem Erectile dysfunction (disorder) (272957229) Male erectile dysfunction, unspecified (N52.9) Active confirmed Problem Paresthesia (finding) (35168379) Paresthesia of skin (R20.2) Active confirmed Problem Carpal tunnel syndrome (99286489) Carpal tunnel syndrome, bilateral upper limbs (G56.03) Active confirmed Problem Anxiety (33756463) Anxiety (F41.9) Active confirmed Vital Signs Heart Rate 82 /min 03/12/2025 Temperature 96.0 degrees Fahrenheit 03/12/2025 Oximetry 98 % 03/12/2025 Blood pressure diastolic 78 mm Hg 03/12/2025 Height 70 in 03/12/2025 Blood pressure systolic 130 mm Hg 03/12/2025 Weight 311.6 lbs 03/12/2025 BMI 44.71 kg/m2 03/12/2025 Encounters Encounter Location Date Provider Diagnosis [address] [place] [address] 06/05/2024 JESSICA FERNANDEZ Other intervertebral disc degeneration, thoracolumbar region M51.35 ; Morbid (severe) obesity due to excess calories E66.01 and Dietary counseling and surveillance Z71.[address] [place] [address] 06/28/2024 Angie Patel Alcohol dependence, uncomplicated F10.20 ; Dizziness R42 ; Anxiety F41.9 and Obstructive sleep apnea (adult) (pediatric) G47.[address] [address] 07/24/2024 LOPEZ GUL Morbid (severe) obes ity due to excess calories E66.01 ; Anxiety F41.9 ; Hidradenitis suppurativa L73.2 and Dietary counseling and surveillance Z71.[address] [place] [address] 08/22/2024 LOPEZ L [address] [place] [address] 09/04/2024 Ghadeer Mazloum Morbid (severe) obes ity due to excess calories E66.01 ; Anxiety F41.9 and Hyperlipidemia, unspecified E78.[address] [place] [address] 10/09/2024 LOPEZ GUL Morbid (severe) obes ity due to excess calories E66.01 ; Anxiety F41.9 ; Hyperlipidemia, unspecified E78.5 ; Plantar fascial fibromatosis M72.2 and Carpal tunnel syndrome, bilateral upper limbs G56.[address] [place] [address] 11/06/2024 Ghadeer Mazloum Morbid (severe) obes ity due to excess calories E66.01 ; Anxiety F41.9 ; Carpal tunnel syndrome, bilateral upper limbs G56.03 ; Carpal tunnel syndrome, left upper limb G56.02 and Hidradenitis suppurativa L73.[address] [place] [address] 12/11/2024 Ghadeer Mazloum Morbid (severe) obes ity due to excess calories E66.01 ; Anxiety F41.9 ; Carpal tunnel syndrome, bilateral upper limbs G56.03 and Plantar fascial fibromatosis M72.[address] [place] [address] 01/08/2025 Ghadeer Mazloum Morbid (severe) obes ity due to excess calories E66.01 ; Dietary counseling and surveillance Z71.3 ; Mixed hyperlipidemia E78.2 and Unilateral inguinal hernia, without obstruction or gangrene, not specified as recurrent K40.90 [facility] [address] [place] [address] 02/12/2025 Ghadeer Mazloum Morbid (severe) obes ity due to excess calories E66.01 ; Dietary counseling and surveillance Z71.3 and Unilateral inguinal hernia, without obstruction or gangrene, recurrent K40.91 [facility] [address] [place] [address] 03/12/2025 Ghadeer Mazloum Morbid (severe) obes ity due to excess calories E66.01 and Dietary counseling and surveillance Z71.3 [facility] [address] [place] [address] 06/05/2024 [facility] [address] [place] [address] 06/27/2024 LOPEZ GUL Morbid (severe) obes ity due to excess calories E66.01 [facility] [address] [place] [address] 07/06/2024 Ghadeer Mazloum [facility] [address] [place] [address] 07/10/2024 Ghadeer Mazloum Mixed hyperlipidemia E78.2 [facility] [address] [place] [address] 07/24/2024 LOPEZ GUL Morbid (severe) obes ity due to excess calories E66.01 [facility] [address] [place] [address] 07/31/2024 LOPEZ L [facility] [address] [place] [address] 08/24/2024 [facility] [address] [place] [address] 08/25/2024 [facility] [address] [place] [address] 10/15/[address] [place] [address] 11/06/[address] [place] [address] 11/23/[address] [place] [address] 12/12/[address] [place] [address] 01/01/[address] [place] [address] 01/08/[address] [place] [address] 03/12/2025 [facility] Assessments Encounter Date Diagnosis (ICD Code) Assessment Notes Treatment Notes Treatment Clinical Notes Section Notes 06/05/2024 Morbid (severe) obesity due to excess [...] Meal replacements were recommended. Advised to use apdj-dxg-bdpzxnj multivitamins and vitamin D. Advised to use [...] this note under HIPAA compliance and under [place] law mandated for scribe services. Patient aware [...] Meal replacements were recommended. Advised to use idxo-pdh-zpfcqzy multivitamins and vitamin D. Advised to use [...] this note under HIPAA compliance and under [place] law mandated for scribe services. Patient aware [...] Meal replacements were recommended. Advised to use piay-nwh-grcyhcb multivitamins and vitamin D. Advised to use [...] this note under HIPAA compliance and under [place] law mandated for scribe services. Patient aware [...] Meal replacements were recommended. Advised to use njuz-byl-knbjpmn multivitamins and vitamin D. Advised to use [...] this note under HIPAA compliance and under [place] law mandated for scribe services. Patient aware [...] Meal replacements were recommended. Advised to use uccq-cyl-wcmsgnd multivitamins and vitamin D. Advised to use [...] has been taken Zetia for high triglyceride. [place] supplements are recommended given combined hyperlipidemia. Will [...] Meal replacements were recommended. Advised to use xnyv-ppi-ckiussr multivitamins and vitamin D. Advised to use [...] has been taken Zetia for high triglyceride. [place] supplements are recommended given combined hyperlipidemia. Will check lipid panel and make recommendations based on that. I have advised on continuation on diet modification with decreasing carb intake and increasing fibers. Bilateral carpal tunnel syndrome. He is given referrals to hand surgery Left foot plantar fasciitis. X-ray of the left foot to rule out bony spurs and he can use lvfl-ufw-hvbwszs heel pads Alcohol dependence. Discussed complications of [...] Meal replacements were recommended. Advised to use vakh-kko-dcnydri multivitamins and vitamin D. Advised to use [...] has been taken Zetia for high triglyceride. [place] supplements are recommended given combined hyperlipidemia. Will check lipid panel and make recommendations based on that. I have advised on continuation on diet modification with decreasing carb intake and increasing fibers. Bilateral carpal tunnel syndrome. He is given referrals to hand surgery Left foot plantar fasciitis. X-ray of the left foot to rule out bony spurs and he can use dqii-ihm-jexxzyy heel pads Alcohol dependence. Discussed complications of alcohol and abstinence encouraged. Nicotine dependence. Encouraged smoking cessation. Is not ready to quit at this point 12/11/2024 Morbid (severe) obesity due to excess calories [...] Meal replacements were recommended. Advised to use ekcy-ith-qnzfmtz multivitamins and vitamin D. Advised to use calorie counter and adhere to portion control. Monthly goal is to lose 4-6 pounds Pharmacotherapy. Increased Zepbound 7.5MG/0.5ML weekly, He is not interested in increasing [...] time was spent counseling Anxiety - He states that he has not been taken sertraline 50 mg and he endorses improvement in his mood that is why he has been noncompliant with the medication. Bilateral carpal tunnel syndrome. 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 Alcohol dependence. Discussed complications of alcohol and abstinence encouraged. Nicotine dependence. Encouraged smoking cessation. Is not ready to quit at this point I have rendered the services for this patient under direct supervision of Dr. Fernandez, who did not see the patient but was available upon request 12/11/2024 Anxiety (ICD-10 - F41.9) Mr. Tolentino is [...] Meal replacements were recommended. Advised to use lups-ztv-uggiawg multivitamins and vitamin D. Advised to use calorie counter and adhere to portion control. Monthly goal is to lose 4-6 pounds Pharmacotherapy. Increased Zepbound 7.5MG/0.5ML weekly, He is not interested in increasing [...] time was spent counseling Anxiety - He states that he has not been taken sertraline 50 mg and he endorses improvement in his mood that is why he has been noncompliant with the medication. Bilateral carpal tunnel syndrome. 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 Alcohol dependence. Discussed complications of alcohol and abstinence encouraged. Nicotine dependence. Encouraged smoking cessation. Is not ready to quit at this point I have rendered the services for this patient under direct supervision of Dr. Fernandez, who did not see the patient but was available upon request 01/08/2025 Morbid (severe) obesity due to excess calories (ICD-10 - E66.01) Mr. Tolentino is a 39-year-old gentleman with testicular hypofunction [...] Meal replacements were recommended. Advised to use btbv-nev-cuxbttu multivitamins and vitamin D. Advised to use [...] the patient but was available upon request 02/12/2025 Dietary counseling and surveillance (ICD-10 - Z71.3) Mr. Tolentino is a 39-year-old gentleman with testicular hypofunction and morbid obesity here for medical weight management. We saw him in June. Helost 6lbs since last visit. Plan is as follows: Dietary recommendations. Food recall was done today and patient advised to be on low calorie, low carbohydrate diet. Restrict calories to less than 1500 kcal in 24 hours. Low glycemic index foods and encouraged. Meal replacements were recommended. Advised to use vvig-azm-kkzzndj multivitamins and vitamin D. Advised to use calorie counter and adhere to portion control. Monthly goal is to lose 4-6 pounds Pharmacotherapy. Continue Zepbound 10MG/0.5ML weekly, He is not interested in increasing the dosage now as he worries about possible side effects, he prefers to stay on the current dosage for now. I have prescribed Omeprazole to improve GERD. Also advised on cutting down on Meloxicam as well. Goal is to lose 3-5% of body [...] than 50% of time was spent counseling Inguinal Hernia: recent U/S shows small inguinal hernia. refer patient to GI. I have rendered the services for this patient under direct supervision of Dr. Fernandez, who did not see the patient but was available upon request 03/12/2025 Morbid (severe) obesity due to excess calories (ICD-10 - E66.01) Mr. Tolentino is a 39-year-old gentleman with testicular hypofunction and morbid obesity here for medical weight management. We saw him in June. Hel Gained 1 pound since last visit. Plan is as follows: Dietary recommendations. Food recall was done today and patient advised to be on low calorie, low carbohydrate diet. Restrict calories to less than 1500 kcal in 24 hours. Low glycemic index foods and encouraged. Meal replacements were recommended. Advised to use zhez-pxq-snkgyfr multivitamins and vitamin D. Advised to use calorie counter and adhere to portion control. Monthly goal is to lose 4-6 pounds Pharmacotherapy.In creased Zepbound 12.5MG/0.5ML weekly. We have discussed Topamax to help suppress the appetite. He is not currently drinking alcohol and does not have history of nephrolithiasis. Side effects have been discussed.. Goal is to lose 3-5% of body [...] than 50% of time was spent counseling I have rendered the services for this patient under direct supervision of Dr. Fernandez, who did not see the patient but was available upon request 03/12/2025 Dietary counseling and surveillance (ICD-10 - Z71.3) Mr. Tolentino is a 39-year-old gentleman with testicular hypofunction and morbid obesity here for medical weight management. We saw him in June. Hel Gained 1 pound since last visit. Plan is as follows: Dietary recommendations. Food recall was done today and patient advised to be on low calorie, low carbohydrate diet. Restrict calories to less than 1500 kcal in 24 hours. Low glycemic index foods and encouraged. Meal replacements were recommended. Advised to use wmpk-kdu-lyagbfz multivitamins and vitamin D. Advised to use calorie counter and adhere to portion control. Monthly goal is to lose 4-6 pounds Pharmacotherapy.In creased Zepbound 12.5MG/0.5ML weekly. We have discussed Topamax to help suppress the appetite. He is not currently drinking alcohol and does not have history of nephrolithiasis. Side effects have been discussed.. Goal is to lose 3-5% of body [...] than 50% of time was spent counseling I have rendered the services for this patient under direct supervision of Dr. Fernandez, who did not see the patient but was available upon request 01/08/2025 Dietary counseling and surveillance (ICD-10 - Z71.3) Mr. Tolentino is a 39-year-old gentleman with testicular hypofunction [...] Meal replacements were recommended. Advised to use rsij-obu-xgzjtkl multivitamins and vitamin D. Advised to use [...] the patient but was available upon request 02/12/2025 Morbid (severe) obesity due to excess calories (ICD-10 - E66.01) Mr. Tolentino is a 39-year-old gentleman with testicular hypofunction and morbid obesity here for medical weight management. We saw him in June. [place]ost 6lbs since last visit. Plan is as follows: Dietary recommendations. Food recall was done today and patient advised to be on low calorie, low carbohydrate diet. Restrict calories to less than 1500 kcal in 24 hours. Low glycemic index foods and encouraged. Meal replacements were recommended. Advised to use udcq-yoe-mkdqwye multivitamins and vitamin D. Advised to use calorie counter and adhere to portion control. Monthly goal is to lose 4-6 pounds Pharmacotherapy. Continue Zepbound 10MG/0.5ML weekly, He is not interested in increasing the dosage now as he worries about possible side effects, he prefers to stay on the current dosage for now. I have prescribed Omeprazole to improve GERD. Also advised on cutting down on Meloxicam as well. Goal is to lose 3-5% of body [...] than 50% of time was spent counseling Inguinal Hernia: recent U/S shows small inguinal hernia. refer patient to GI. I have rendered the services for this patient under direct supervision of Dr. Fernandez, who did not see the patient but was available upon request 11/06/2024 Morbid (severe) obesity due to excess [...] Meal replacements were recommended. Advised to use bqyz-lfg-cnvyrqs multivitamins and vitamin D. Advised to use calorie counter and adhere to portion control. Monthly goal is to lose 4-6 pounds Pharmacotherapy. Increased Zepbound 7.5MG/0.5ML weekly, He is not interested in increasing [...] has been taken Zetia for high triglyceride. [place] supplements are recommended given combined hyperlipidemia. Will check lipid panel and make recommendations based on that. I have advised on continuation on diet modification with decreasing carb intake and increasing fibers. Bilateral carpal tunnel syndrome. - He is given referrals to hand surgery HS: - No flare-up at this point, he is interested in referral to dermatology. Referred patient Alcohol dependence. Discussed complications of alcohol and abstinence encouraged. Nicotine dependence. Encouraged smoking cessation. Is not ready to quit at this point I have rendered the services for this patient under direct supervision of Dr. Fernandez, who did not see the patient but was available upon request 11/06/2024 Anxiety (ICD-10 - F41.9) Mr. Tolentino [...] Meal replacements were recommended. Advised to use otiq-pwz-kqzebkh multivitamins and vitamin D. Advised to use calorie counter and adhere to portion control. Monthly goal is to lose 4-6 pounds Pharmacotherapy. Increased Zepbound 7.5MG/0.5ML weekly, He is not interested in increasing [...] has been taken Zetia for high triglyceride. [place] supplements are recommended given combined hyperlipidemia. Will check lipid panel and make recommendations based on that. I have advised on continuation on diet modification with decreasing carb intake and increasing fibers. Bilateral carpal tunnel syndrome. - He is given referrals to hand surgery HS: - No flare-up at this point, he is interested in referral to dermatology. Referred patient Alcohol dependence. Discussed complications of alcohol and abstinence encouraged. Nicotine dependence. Encouraged smoking cessation. Is not ready to quit at this point I have rendered the services for this [...] Meal replacements were recommended. Advised to use ipve-wnd-ewusatn multivitamins and vitamin D. Advised to use calorie counter and adhere to portion control. Monthly goal is to lose 4-6 pounds Pharmacotherapy. Increased Zepbound 7.5MG/0.5ML weekly, He is not interested in increasing [...] has been taken Zetia for high triglyceride. [place] supplements are recommended given combined hyperlipidemia. Will check lipid panel and make recommendations based on that. I have advised on continuation on diet modification with decreasing carb intake and increasing fibers. Bilateral carpal tunnel syndrome. - He is given referrals to hand surgery HS: - No flare-up at this point, he is interested in referral to dermatology. Referred patient Alcohol dependence. Discussed complications of alcohol and abstinence encouraged. Nicotine dependence. Encouraged smoking cessation. Is not ready to quit at this point I have rendered the services for this patient under direct supervision of Dr. Fernandez, who did not see the patient but was available upon request 02/12/2025 Unilateral inguinal hernia, without obstruction or gangrene, recurrent (ICD-10 - K40.91) Mr. Tolentino is a 39-year-old gentleman with testicular hypofunction and morbid obesity here for medical weight management. We saw him in June. Helost 6lbs since last visit. Plan is as follows: Dietary recommendations. Food recall was done today and patient advised to be on low calorie, low carbohydrate diet. Restrict calories to less than 1500 kcal in 24 hours. Low glycemic index foods and encouraged. Meal replacements were recommended. Advised to use rdci-yzs-kslzzbo multivitamins and vitamin D. Advised to use calorie counter and adhere to portion control. Monthly goal is to lose 4-6 pounds Pharmacotherapy. Continue Zepbound 10MG/0.5ML weekly, He is not interested in increasing the dosage now as he worries about possible side effects, he prefers to stay on the current dosage for now. I have prescribed Omeprazole to improve GERD. Also advised on cutting down on Meloxicam as well. Goal is to lose 3-5% of body [...] than 50% of time was spent counseling Inguinal Hernia: recent U/S shows small inguinal hernia. refer patient to GI. I have rendered the services for this patient under direct supervision of Dr. Fernandez, who did not see the patient but was available upon request 12/11/2024 Carpal tunnel syndrome, bilateral upper limbs (ICD-10 [...] Meal replacements were recommended. Advised to use xzub-pai-xmkiftf multivitamins and vitamin D. Advised to use calorie counter and adhere to portion control. Monthly goal is to lose 4-6 pounds Pharmacotherapy. Increased Zepbound 7.5MG/0.5ML weekly, He is not interested in increasing [...] time was spent counseling Anxiety - He states that he has not been taken sertraline 50 mg and he endorses improvement in his mood that is why he has been noncompliant with the medication. Bilateral carpal tunnel syndrome. 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 Alcohol dependence. Discussed complications of alcohol and abstinence encouraged. Nicotine dependence. Encouraged smoking cessation. Is not ready to quit at this point I have rendered the services for this patient under direct supervision of Dr. Fernandez, who did not see the patient but was available upon request 01/08/2025 Mixed hyperlipidemia (ICD-10 - E78.2) Mr. Tolentino is a 39-year-old gentleman with testicular hypofunction [...] Meal replacements were recommended. Advised to use cfbw-uva-iioiqcx multivitamins and vitamin D. Advised to use [...] the patient but was available upon request 06/28/2024 Anxiety (ICD-10 - F41.9) Mr. Tolentino [...] Meal replacements were recommended. Advised to use funf-too-waigglb multivitamins and vitamin D. Advised to use [...] has been taken Zetia for high triglyceride. [place] supplements are recommended given combined hyperlipidemia. Will check lipid panel and make recommendations based on that. I have advised on continuation on diet modification with decreasing carb intake and increasing fibers. General health concerns discussed with patient I have rendered the services for this patient under direct supervision of Dr. Fernandez, who did not see the patient but was available upon request 10/09/2024 Hyperlipidemia, unspecified (ICD-10 - E78.5) Mr. [...] Meal replacements were recommended. Advised to use qkds-she-rkuudak multivitamins and vitamin D. Advised to use [...] has been taken Zetia for high triglyceride. [place] supplements are recommended given combined hyperlipidemia. Will check lipid panel and make recommendations based on that. I have advised on continuation on diet modification with decreasing carb intake and increasing fibers. Bilateral carpal tunnel syndrome. He is given referrals to hand surgery Left foot plantar fasciitis. X-ray of the left foot to rule out bony spurs and he can use nwvi-dqi-hpuzsxl heel pads Alcohol dependence. Discussed complications of [...] Meal replacements were recommended. Advised to use zrhs-oii-ydwbouc multivitamins and vitamin D. Advised to use [...] this note under HIPAA compliance and under [place] law mandated for scribe services. Patient aware [...] Meal replacements were recommended. Advised to use zvmj-mlf-rniqlpw multivitamins and vitamin D. Advised to use [...] this note under HIPAA compliance and under [place] law mandated for scribe services. Patient aware [...] Meal replacements were recommended. Advised to use jflt-kvm-byedeus multivitamins and vitamin D. Advised to use [...] this note under HIPAA compliance and under [place] law mandated for scribe services. Patient aware [...] Meal replacements were recommended. Advised to use mzey-bdm-vwfsixw multivitamins and vitamin D. Advised to use [...] has been taken Zetia for high triglyceride. [place] supplements are recommended given combined hyperlipidemia. Will [...] Meal replacements were recommended. Advised to use maug-xnr-guxkcag multivitamins and vitamin D. Advised to use [...] has been taken Zetia for high triglyceride. [place] supplements are recommended given combined hyperlipidemia. Will check lipid panel and make recommendations based on that. I have advised on continuation on diet modification with decreasing carb intake and increasing fibers. Bilateral carpal tunnel syndrome. He is given referrals to hand surgery Left foot plantar fasciitis. X-ray of the left foot to rule out bony spurs and he can use nzvw-ajj-addbmfl heel pads Alcohol dependence. Discussed complications of alcohol and abstinence encouraged. Nicotine dependence. Encouraged smoking cessation. Is not ready to quit at this point 12/11/2024 Plantar fascial fibromatosis (ICD-10 - M72.2) Mr. [...] Meal replacements were recommended. Advised to use ijjw-jta-evrtrpt multivitamins and vitamin D. Advised to use calorie counter and adhere to portion control. Monthly goal is to lose 4-6 pounds Pharmacotherapy. Increased Zepbound 7.5MG/0.5ML weekly, He is not interested in increasing [...] time was spent counseling Anxiety - He states that he has not been taken sertraline 50 mg and he endorses improvement in his mood that is why he has been noncompliant with the medication. Bilateral carpal tunnel syndrome. 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 Alcohol dependence. Discussed complications of alcohol and abstinence encouraged. Nicotine dependence. Encouraged smoking cessation. Is not ready to quit at this point I have rendered the services for this patient under direct supervision of Dr. Fernandez, who did not see the patient but was available upon request 01/08/2025 Unilateral inguinal hernia, without obstruction or gangrene, not specified as recurrent (ICD-10 - K40.90) Mr. Tolentino is a 39-year-old gentleman with testicular hypofunction [...] Meal replacements were recommended. Advised to use fawv-rvy-gnojbvv multivitamins and vitamin D. Advised to use [...] available upon request 11/06/2024 Carpal tunnel syndrome, left upper limb [...] Meal replacements were recommended. Advised to use gyky-icr-gfagntr multivitamins and vitamin D. Advised to use calorie counter and adhere to portion control. Monthly goal is to lose 4-6 pounds Pharmacotherapy. Increased Zepbound 7.5MG/0.5ML weekly, He is not interested in increasing [...] has been taken Zetia for high triglyceride. [place] supplements are recommended given combined hyperlipidemia. Will check lipid panel and make recommendations based on that. I have advised on continuation on diet modification with decreasing carb intake and increasing fibers. Bilateral carpal tunnel syndrome. - He is given referrals to hand surgery HS: - No flare-up at this point, he is interested in referral to dermatology. Referred patient Alcohol dependence. Discussed complications of alcohol and abstinence encouraged. Nicotine dependence. Encouraged smoking cessation. Is not ready to quit at this point I have rendered the services for this patient under direct supervision of Dr. Fernandez, who did not see the patient but was available upon request 11/06/2024 Hidradenitis suppurativa (ICD-10 - L73.2) Mr. [...] Meal replacements were recommended. Advised to use kfil-okw-itwdjim multivitamins and vitamin D. Advised to use calorie counter and adhere to portion control. Monthly goal is to lose 4-6 pounds Pharmacotherapy. Increased Zepbound 7.5MG/0.5ML weekly, He is not interested in increasing [...] has been taken Zetia for high triglyceride. [place] supplements are recommended given combined hyperlipidemia. Will check lipid panel and make recommendations based on that. I have advised on continuation on diet modification with decreasing carb intake and increasing fibers. Bilateral carpal tunnel syndrome. - He is given referrals to hand surgery HS: - No flare-up at this point, he is interested in referral to dermatology. Referred patient Alcohol dependence. Discussed complications of alcohol and abstinence encouraged. Nicotine dependence. Encouraged smoking cessation. Is not ready to quit at this point I have rendered the services for this patient under direct supervision of Dr. Fernandez, who did not see the patient but was available upon request 10/09/2024 Carpal tunnel syndrome, bilateral upper limbs [...] Meal replacements were recommended. Advised to use qqym-bxm-jwnowjz multivitamins and vitamin D. Advised to use [...] has been taken Zetia for high triglyceride. [place] supplements are recommended given combined hyperlipidemia. Will check lipid panel and make recommendations based on that. I have advised on continuation on diet modification with decreasing carb intake and increasing fibers. Bilateral carpal tunnel syndrome. He is given referrals to hand surgery Left foot plantar fasciitis. X-ray of the left foot to rule out bony spurs and he can use orjv-hif-gbwoabj heel pads Alcohol dependence. Discussed complications of alcohol and abstinence encouraged. Nicotine dependence. Encouraged smoking cessation. Is not ready to quit at this point Plan Of Treatment Pending Test Test Name Order Date X ray : Foot, left 3v 10/09/2024 US Soft Tissue Groin 01/08/2025 CBC/Differential (No Platelet)-[id number] Lipid Panel-[id number] 09/04/2024 Lipid Panel-[id number] 10/09/2024 Next Appt Details Provider Name:Angie maradiaga, 05/28/2025 01:00:00 PM, [address] [place] [address], [phone], Insurance Providers Payer Name Payer Address Payer Phone Subscriber Number Group Number Insured Name Patient Relationship to Insured Coverage Start Date Coverage End Date [facility] [address] [place] [address] [id number] Ayaz Tolentino Self - patient is the [...]
[2025-04-26 11:53] VITALS: BP 115/73; PULSE 93; BMI 43.3
== END 2025-04-26 12:42 | disposition home or self-care (01) ==
LOC: HO.HGS 11:44
PROVIDERS: PCP Hospitalist; Visit Provider Physician Assistant Surgical
DX: L73.2 Hidradenitis suppurativa (principal)
CPT/HCPCS: 99214

== ENCOUNTER 2025-05-27 11:02 | Day surgery (SDC) | payer OTHER, SELFPAY ==
--- NOTE | 2025-04-26 12:24 | HO.ANESPROP2 ---
HPI - Anesthesia Eval Consult details Narrative: 39 yr old male for left carpal tunnel release Morbid obesity BMI 43, on zepbound, started on topamax at PCP visit 03/12/25 [facility] Active Problems Active Problems: All Active Problems (Updated 04/26/25 @ 12:16 by Ashley Jonas PA-C) Hidradenitis suppurativa (Acute) Carpal tunnel syndrome on both sides (Acute) Right inguinal hernia (Acute) Bilateral hand numbness (Acute) Past Medical History Medical History (Updated 04/26/25 @ 12:16 by Ashley Jonas PA-C) Hx of syncope (~2020) Hidradenitis suppurativa Carpal tunnel syndrome on both sides Anxiety Personal history of COVID-19 (03/2022) Testicular hypofunction External hemorrhoids Sleep apnea Neuropathy Family History Family history of problems with anesthesia: No Surgical History Surgical History (Updated 04/15/25 @ 10:06 by Zulema Conteh RN) History of excision of pilonidal cyst (~2017) Hx of removal of cyst (~2019) History of Problems with Anesthesia: No Social History Social History Are you a primary care center manager to a significant other at home: No Do you presently have visiting nurse or other home services: No Patient Tobacco Use Status: Current everyday Tobacco user Tobacco use type: Cigarette Cigarette Packs Per Day: 1 Cigarettes Per Day: 20.0 Current occupational status: employed 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, 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 Allergies Allergy/AdvReac Type Severity Reaction Status Date / Time No Known Allergies Allergy Verified 04/26/25 11:50 Home Medications ?Medication ?Instructions ?Recorded ?Confirmed ?Last Taken ?Type tirzepatide (weight loss) 12.5 12.5 mg subcut QWEEK 04/15/25 04/15/25 Unknown History mg/0.5 mL subcutaneous pen injector (Zepbound) Exam Narrative Narrative: EKG 04/15/25 Vent. Rate : 77 BPM Atrial Rate : 77 BPM P-R Int : 126 ms QRS Dur : 86 ms QT Int : 360 ms P-R-T Axes : 30 51 40 degrees QTcB Int : 407 ms Normal sinus rhythm Normal ECG No previous ECGs available Assessment and Plan Final Anesthetic Review Family History of Problems with Anesthesia: No History of Problems with Anesthesia: No
[2025-05-27 16:02] VITALS: BP 127/66; PULSE 78; RESP 20; TEMP 36.6; O2SAT 96; BMI 42.2
--- NOTE | 2025-05-27 17:05 | MHC.SHP ---
Pre-Procedural Eval Section A - 24 Hr Update-Section A only Date of Service: 05/27/25 The patient is an INPATIENT: No Changes since office visit: No Cold of Flu in the past 2 weeks, No New Medical Problems, No Changes in Medication and No Patient answered all questions The patient has been examined within 24 hours of the surgical procedure. The History & Physical has been completed within 30 days and I have reviewed it.: Yes Section B - Complete if H&P > 30 days Chief Complaint: Carpal tunnel syndrome, left upper limb Allergies: Allergies Allergy/AdvReac Type Severity Reaction Status Date / Time No Known Allergies Allergy Verified 04/26/25 11:50 Plan Diagnosis/Plan: Unchanged I have reviewed the history and physical and performed a pertinent physical examination on my patient. No changes have occurred unless specified. Time Spent With Patient Time: Total time managing care of this patient today ____ minutes.
--- NOTE | 2025-05-27 17:05 | W.PM.OPN ---
Operative Note Operative Note Date of Service: 05/27/25 Narrative: Preop diagnosis: 1. Left Carpal tunnel syndrome Postop diagnosis: same Procedure: 1. Left Carpal tunnel release Surgeon: Heather Lentz MD Cut Roll Machine Offbearer: None Anesthesia: local block using 1% lidocaine with epinephrine Findings: Thickened transverse carpal ligament. EBL: Less than 5 mL Specimens: None Complications: None Disposition: Brought to recovery room in stable condition Plan: Follow-up for 10-14 days for wound check and suture removal Indications: The patient is 39 years old, with left carpal tunnel syndrome that has been unresponsive to nonoperative management. The risks and benefits of operative treatment including but not limited to risk of damage to blood vessels, nerves, tendons, infection, persistent pain, persistent symptoms, or possible need for additional surgery were discussed with the patient and the patient wishes to proceed with surgery. Procedure: Once consent was obtained a local block was performed using a combination of 1% lidocaine with epinephrine. The patient was then brought back to the operating suite and placed on the operative table in supine position. The left upper extremity was prepped and draped in a standard surgical fashion. Once assured that we had a good block, a 2.0 cm longitudinal incision was made centered over the carpal tunnel. The incision was made through the skin to the subcutaneous tissues using a #15 blade. Dissection was made down to the level of the transverse carpal ligament with care being taken to protect the palmar cutaneous nerve. Once the transverse carpal ligament was clearly visualized, a longitudinal incision was made in the transverse carpal ligament 1st using a #15 blade, then using tenotomy scissors under direct visualization. Care was taken to look for and protect the motor branch of the median nerve when seen in this area. Once satisfied with our carpal tunnel release the wound was copiously irrigated with normal saline and hemostasis was obtained with a brief period of local pressure. The skin edges were reapproximated with some 5.0 nylon suture material and a sterile dressing was applied. The patient appears to have tolerated the procedure well and with no complications. All digits were well vascularized at the conclusion of the case.
[2025-05-27 18:55] VITALS: BP 134/66; PULSE 85; RESP 16; TEMP 36.6; O2SAT 98
== END 2025-05-27 18:59 | disposition home or self-care (01) ==
PROVIDERS: PCP Hospitalist; Visit Provider Orthopaedic Surgery
PROC: (CPT 64721; principal; 2025-05-27 14:40)
DX: G56.02 Carpal tunnel syndrome, left upper limb (principal); R20.0 Anesthesia of skin; G62.9 Polyneuropathy, unspecified; G47.30 Sleep apnea, unspecified; L73.2 Hidradenitis suppurativa; F41.9 Anxiety disorder, unspecified; E29.1 Testicular hypofunction; Z79.85 Long-term (current) use of injectable non-insulin antidiabetic drugs; Z98.890 Other specified postprocedural states; F17.210 Nicotine dependence, cigarettes, uncomplicated
CPT/HCPCS: 64721; J0165; J2003

== ENCOUNTER → 2025-05-27 11:02 | Outpatient (BNV) | payer OTHER, SELFPAY | PROVIDERS: PCP Hospitalist; Visit Provider Orthopaedic Surgery | DX: G56.02 Carpal tunnel syndrome, left upper limb (principal) | CPT/HCPCS: 64721 ==

== ENCOUNTER 2025-06-12 14:50 | Outpatient (AMB) | payer OTHER, SELFPAY ==
--- OUTSIDE RECORDS SUMMARY | 2025-05-28 09:00 | XMS_ITS ---
Author Organization [facility] Address [address] [address] Care Team Providers Care Hat Braider Name Role Phone JESSICA FERNANDEZ Primary Care Provider Angie Patel [phone] REASON FOR VISIT WM follow up/ surgery clearance 04/29/25 (EKG needed) Encounters Encounter Location Date Provider Diagnosis [facility] [address] [address] 05/28/2025 Angie Patel Plan Of Treatment Next Appt Details Provider Name:Angie maradiaga, 06/25/2025 02:30:00 PM, [address] [place] [address], [place], [phone], Progress Notes * DATRondaew RDOB:1984 (39 yo M)Acc No.[id number]:05/28/2025 Patient: Devin KELLYDARRELL Ayaz Garcia Appointment Provider: Devin Patel :1985 A ge:39 Y S ex:Male Date:05/28/2025 [facility] [address] [facility] [id number] Pcp:JESSICA FERNANDEZ Subjective: * Chief Complaints: * 1 . WM follow up/ surgery clearance 04/29/25 (EKG needed). * Medical History: Objective: * Vitals: Assessment: Plan: * Treatment: * Images: * Electronic signature of Maricruz Patel PA-C on 06/12/2025 at 06:01 PM EDT Sign off status: Pending * Appointment Provider: Devin Patel Date: 0 05/28/2025 Generated for Toro Zuñiga/Jarett on: 0 06/12/2025 06:01 PM EDT
--- NOTE | 2025-06-12 15:18 | A.OFFVIS_ITS ---
Vital Signs 06/12/25 15:19 Height 6 ft Weight 311 lb BMI 42.2 Intake Visit Reasons: PO LT CTR 05/27/25 AR Intake Note: Ayaz 39 yr old male presnets today for hos P/O visit for his left CTR from 05/27/25. States he his symptoms have subsided and is doing well. Sutures removed and steri strips applied. Allergies No Known Allergies Allergy (Verified 06/12/25 15:20) HPI HPI PO LT CTR 05/27/25 AR: Details: Ayaz is a 39 year old right hand dominant man who returns S/p left carpal tunnel release, DOS: 05/27/25. He says he is doing well and his sensation is now normal. He is happy with the results of his surgery. He has right carpal tunnel syndrome. Symptoms intermittent, but daily, worse with activities such as driving. 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 [facility] Medical History (Updated 04/26/25 @ 12:16 by Ashley Jonas PA-C) Hx of syncope (~2020) Hidradenitis suppurativa Carpal tunnel syndrome on both sides Anxiety Personal history of COVID-19 (03/2022) Testicular hypofunction External hemorrhoids Sleep apnea Neuropathy Surgical History (Updated 04/15/25 @ 10:06 by Zulema Conteh RN) History of excision of pilonidal cyst (~2017) Hx of removal of cyst (~2019) Social History Are you a primary physician locums urgent care to a significant other at home: No Do you presently have visiting nurse or other home services: No Patient Tobacco Use Status: Current everyday Tobacco user Tobacco use type: Cigarette Cigarette Packs Per Day: 1 Cigarettes Per Day: 20.0 Current occupational status: employed 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 Sutures removed and Steri-Strips applied He can make a fist and extend all his digits Sensation is normal in the median nerve distribution on the left, and he says he no longer has intermittent numbness and tingling. Regarding the right side, he says he has symptoms that are intermittent but daily worse at night and worse with activities. No numbness and tingling in the digits today in the right side in clinic. Cap refill is brisk Nerve Conduction Study: IMPRESSION: 1. This is an abnormal study. 2. There is electrodiagnostic evidence for bilateral moderate-severe median neuropathy at the wrist, consistent with carpal tunnel syndrome. Left worse than right. 3. There is no electrodiagnostic evidence for ulnar neuropathy, brachial plexopathy, or cervical radiculopathy. Carisa Sheth MD, IAN 01/09/25 Psych Appearance: grossly normal Affect: normal affect Attitude: cooperative Assessment & Plan Assessment & Plan (1) Carpal tunnel syndrome on both sides: Code(s): G56.03 - Carpal tunnel syndrome, bilateral upper limbs Category: Medical Plan Assessment & Plan: 1. Left carpal tunnel surgery, S/P release DOS: 05/27/25 Pre-operative symptoms intermittent, but daily, worse at night Now with normal sensation & improvement in his nighttime symptoms The patient appears to be doing well post-operatively, and he is very happy with the results of his surgery I educated him about the post-operative course I discussed activity modifications, he is to lift nothing heavier than a c ellphone for the next 2 weeks. 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 he was given a note for work to return on full duty, effective 06/24/25 He can follow up prn 2. Right carpal tunnel syndrome, moderate-severe Symptoms intermittent, but daily, worse at night I educated him about this condition I discussed operative and non-operative treatment options The patient would like to proceed with surgery. This should be no sooner than 07/15/25 The risks and benefits of operative treatment were discussed with the patient and the patient wishes to proceed with surgery. These risks include, but are not limited to risk of damage to blood vessels, nerves, tendons, infection, recurrence, incomplete relief of preoperative symptoms, persistent pain, possible need for further surgery and the risks associated with regional blocks and anesthesia. The plan is to take the patient to the operating room sometime in the next few weeks for the following procedures: 1. Right carpal tunnel release, under local All of the preoperative paperwork including the consent was reviewed today. All the patient's questions were answered. The patient understands that they will be contacted by our salad counter attendant soon to schedule this procedure He denies Diabetes, blood thinners, asthma, heart, lung, kidney issues Scribed for Heather Lentz MD by Vlad Burnett, medical writer, on 06/12/25 at 3:20 PM, EST. Coding Level of Care Code Est Pt Level 4 (68312) Diagnoses Carpal tunnel syndrome on both sides G56.03
[2025-06-12 15:19] VITALS: BMI 42.2
--- OUTSIDE RECORDS SUMMARY | 2025-06-12 18:02 | XMS_ITS | Clinical Summary ---
Author Organization [facility] Address [address] [place] [address] Care Team Providers Care Copper Etcher Name Role Phone Dusty Pike MD Primary Care Provider [phone] Medical History Medical History Date Comments ETOH [...] 09/04/2022 Social Influencers of Health Screening 09/04/2022 Depression Screening 10/03/2024 COVID-19 Vaccine ( - 2023-2 5 season) 2025 Influenza Vaccine (#1) 2025 HIB Vaccines Aged [...] age to complete this topic Care Teams Copper Etcher Relationship Specialty Start Date End Date Dusty Pike MD [address] [place] [id number] PCP - General Internal Medicine 10/05/21
--- OUTSIDE RECORDS SUMMARY | 2025-06-12 18:02 | XMS_ITS | Patient Health Record ---
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 Metabolic Panel ([id number] Reviewed date:06/04/2025 10:07:39 AM Interpretation: Performing Lab:[facility], [address] [place] [address], Phone - [phone], Director - Carli Notes/Report: Glucose 98 70-99 mg/dL BUN 14 6-24 mg/dL Creatinine 0.76 0.76-1.27 mg/dL eGFR 116 >59 mL/min/1.73 BUN/Creatinine Ratio 18 9-20 Sodium 136 134-144 mmol/L Potassium 4.1 3.5-5.2 mmol/L Chloride 102 96-106 mmol/L Carbon Dioxide, Total 19 20-29 mmol/L Calcium 8.9 8.7-10.2 mg/dL Protein, Total 6.9 6.0-8.5 g/dL Albumin 4.5 4.1-5.1 g/dL Globulin, Total 2.4 1.5-4.5 g/dL Bilirubin, Total 0.4 0.0-1.2 mg/dL Alkaline Phosphatase 61 44-121 IU/L Effective June 17, 2025 Alkaline Phosphatase reference interval will be changing to: Age Male Female 0 - 5 days 47 - 127 47 - 127 6 - 10 days 29 - 242 29 - 242 11 - 20 days 109 - 357 109 - 357 21 - 30 days 94 - 494 94 - 494 1 - 2 months 149 - 539 149 - 539 3 - 6 months 131 - 452 131 - 452 7 - 11 months 117 - 401 117 - 401 12 months - 6 years 158 - 369 158 - 369 7 - 12 years 150 - 409 150 - 409 13 years 156 - 435 78 - 227 14 years 114 - 375 64 - 161 15 years 88 - 279 56 - 134 16 years 74 - 207 51 - 121 17 years 63 - 161 47 - 113 18 - 20 years 51 - 125 42 - 106 21 - 50 years 47 - 123 41 - 116 51 - 80 years 49 - 135 51 - 125 >80 years 48 - 129 48 - 129 AST (SGOT) 18 0-40 IU/L ALT (SGPT) 26 0-44 IU/L Lipid Panel-[id number] Reviewed date:06/04/2025 10:07:10 AM Interpretation: Performing Lab:[facility], [address] [facility], Phone - [phone], Director - MDJoy Notes/Report: Cholesterol, Total 164 100-199 mg/dL Triglycerides 154 0-149 mg/dL HDL Cholesterol 39 >39 mg/dL VLDL Cholesterol Harvey 27 5-40 mg/dL LDL Chol Calc (NIH) 98 0-99 mg/dL CBC with Diff, Platelet, NLR -[id number] Reviewed date:06/04/2025 10:08:09 AM Interpretation: Performing Lab:[facility], [address] [facility] [place], Phone - [phone], Director - MDLolis Notes/Report: WBC 12.2 3.4-10.8 x10E3/uL RBC 4.33 4.14-5.80 x10E6/uL Hemoglobin 14.0 13.0-17.7 g/dL Hematocrit 41.2 37.5-51.0 % MCV 95 79-97 fL MCH 32.3 26.6-33.0 pg MCHC 34.0 31.5-35.7 g/dL RDW 13.0 11.6-15.4 % Platelets 213 150-450 x10E3/uL Neutrophils 71 Not Estab. % Lymphs 21 Not Estab. % Monocytes 6 Not Estab. % Eos 1 Not Estab. % Basos 0 Not Estab. % Neutrophils (Absolute) 8.7 1.4-7.0 x10E3/uL Lymphs (Absolute) 2.6 0.7-3.1 x10E3/uL Neut/Lymph Ratio 3.3 0.0-2.9 ratio Published COVID-19 studies suggest: Low likelihood of severe COVID-19 disease progression 0.0-2.9 High likelihood of severe COVID-19 disease progression >4.9 Monocytes(Absolute) 0.7 0.1-0.9 x10E3/uL Eos (Absolute) 0.1 0.0-0.4 x10E3/uL Baso (Absolute) 0.0 0.0-0.2 x10E3/uL Immature Granulocytes 1 Not Estab. % Immature Grans (Abs) 0.1 0.0-0.1 x10E3/uL Vitamin B12 and Folate-54845 0 Reviewed date:06/04/2025 10:08:17 AM Interpretation: Performing Lab:[facility], [address] [place] [address], Phone - [phone], Director - [facility] Notes/Report: Vitamin B12 997 876-8623 pg/mL Folate (Folic Acid), Serum 10.8 >3.0 ng/mL A serum folate concentration of less than 3.1 ng/mL is considered to represent clinical deficiency. TSH-[id number] Reviewed date:07/10/2024 02:08:55 PM Interpretation: Performing Lab:[facility], Phone - [phone], [facility] Notes/Report: Test(s) 583253-Pdazecuqwytsd Acid, Serum was developed and its performance characteristics determined by [facility]. It has not been cleared or approved by the Food and Drug Administration. TSH 1.820 0.450-4.500 uIU/mL CBC With Differential/Platel et-[id number] Reviewed date:07/10/2024 02:36:26 PM Interpretation: Performing Lab:[facility] [address], Phone - [phone], Director - [facility] Notes/Report: Test(s) 305091-Upoucmjiauohx Acid, Serum was developed and its performance characteristics determined by [facility]. It has not been cleared or approved [...] % Immature Grans (Abs) 0.0 0.0-0.1 x10E3/uL Homocyst(e)ine-967034 Reviewed date:07/10/2024 10:19:56 AM Interpretation: Performing Lab:[facility] [place], [address] [place] [address], Phone - [phone], Director - [facility] Notes/Report: Test(s) 336941-Hkpuutarnobtu Acid, Serum was developed and its performance characteristics determined by [facility]. It has not been cleared or approved by the Food and Drug Administration. Homocyst(e)ine 10.5 0.0-14.5 umol/L Methylmalonic Acid, Serum-70 6961 Reviewed date:07/10/2024 02:36:11 PM Interpretation: Performing Lab:[facility], [address] [facility] [place], Phone - [phone], Director - [facility] Notes/Report: Test(s) 060621-Rucxiwdqdbrtk Acid, Serum was developed and its performance characteristics determined by [facility]. It has not been cleared or approved by the Food and Drug Administration. Methylmalonic Acid, Serum 116 0-378 nmol/L Lipid Panel-[id number] Reviewed date:07/10/2024 02:13:16 PM Interpretation: Performing Lab:[facility] [address], Phone - [phone], [facility] Notes/Report: Test(s) 376981-Nxirgctphbfqq Acid, Serum was developed and its performance characteristics determined by [facility]. It has not been cleared or approved by the Food and Drug Administration. Cholesterol, Total 225 100-199 mg/dL Triglycerides 247 0-149 mg/dL HDL Cholesterol 44 >39 mg/dL VLDL Cholesterol Harvey 44 5-40 mg/dL LDL Chol Calc ([facility]) 137 0-99 mg/dL Ferritin-373372 Reviewed date:07/10/2024 02:36:33 PM Interpretation: Performing Lab:[facility] [address], Phone - [phone], [facility] Notes/Report: Test(s) 551319-Tpjoumattgzmi Acid, Serum was developed and its performance characteristics determined by [facility]. It has not been cleared or approved by the Food and Drug Administration. Ferritin 619 30-400 ng/mL Magnesium-856669 Reviewed date:07/10/2024 02:36:18 PM Interpretation: Performing Lab:[facility] [address], Phone - [phone], [facility] Notes/Report: Test(s) 830007-Apesilenpzcjv Acid, Serum was developed and its performance characteristics determined by [facility]. It has not been cleared or approved by the Food and Drug Administration. Magnesium 2.2 1.6-2.3 mg/dL Iron and TIBC-742771 Reviewed date:07/10/2024 03:23:58 PM Interpretation: Performing Lab:[facility] [address], Phone - [phone], [facility] Notes/Report: Test(s) 653365-Xrkykmmhpmbnd Acid, Serum was developed and its performance characteristics determined by [facility]. It has not been cleared or approved by the Food and Drug Administration. Iron Bind.Cap.(TIBC) 331 250-450 ug/dL UIBC 272 111-343 ug/dL Iron 59 38-169 ug/dL Iron Saturation 18 15-55 % Vitamin B12 and Folate-17318 0 Reviewed date:07/10/2024 03:26:58 PM Interpretation: Performing Lab:[facility] [place] [address], [place], Phone - [phone], Director - Carli Notes/Report: Test(s) 441649-Hmukagfudsbvz Acid, Serum was developed and its performance characteristics determined by [facility]. It has not been cleared or approved by the Food and Drug Administration. Vitamin B12 050 950-5622 pg/mL Folate (Folic Acid), Serum 8.9 >3.0 ng/mL A serum folate concentration of less than 3.1 ng/mL is considered to represent clinical deficiency. Reason For Referral Reason Evaluation and manag ement Diagnosis 1 Encounter for screen ing for malignant neoplasm of skin (Z12.83) Referral Organization [facility] Referring Provider First Name JESSICA Referring Provider Last Name DAYANARA Referring Provider Speciality Internal edicine Referred Provider Specialty Dermatology General Notes Referral sent to [facility] ([address] [place], [place] [address] ) - Office will call patient for scheduling., Shante Rodriguez 07/31/2024 04:42:01 PM > Referral Priority Routine Reason B/L CTS Please casey luate and treat Diagnosis 1 Carpal tunnel syndro me, bilateral upper limbs (G56.03) Referral Organization [facility] Referring Provider First Name JESSICA Referring Provider Last Name DAYANARA Referring Provider Speciality Internal edicine Referred Provider Specialty Hand Surgery General Notes refarral was faxed t o [facility], please contact patient for scheduling., Kimi Jennings 10/15/2024 11:51:06 AM > Referral Priority Routine Reason PLEASE EVALUATE AND TREAT Diagnosis 1 Carpal tunnel syndro me, bilateral upper limbs (G56.03) Referral Organization [facility] Referring Provider First Name Angie Referring Provider Last Name Jorge Referred Provider Specialty Orthopedic S urgery General Notes referral was faxed t o [facility]. Please contact patient for scheduling, Kimi Jennings 11/06/2024 04:46:55 PM > Referral Priority Routine Reason please evaluate and treat Diagnosis 1 Hidradenitis suppura tiva (L73.2) Referral Organization [facility] Referring Provider First Name Angie Referring Provider Last Name Jorge Referred Provider Specialty Dermatology General Notes referral was faxed t o [facility]. please contact patient for scheduling.Michaela Rashida 11/06/2024 04:45:30 PM > Referral Priority Routine Reason right sided inguinal hernia. Please evaluate and treat Please evaluate and treat Diagnosis 1 Unilateral inguinal hernia, without obstruction or gangrene, recurrent (K40.91) Referral Organization [facility] Referring Provider First Name Oswaldo Referring Provider Last Name Heather Referred Provider Specialty General Surg elda General Notes Please call the jorge ent to schedule the appointment, [facility]. Please contact them at [phone], Michaelle Orozco 02/14/2025 04:10:21 PM > Referral Priority Routine Reason please evaluate and treat Please evaluate and treat Diagnosis 1 Strain of muscle, fa scia and tendon of lower back, initial encounter (S39.012A) Referral Organization [facility] Referring Provider First Name Oswaldo Referring Provider Last Name Heather Referred Provider Specialty Physical The rapist General Notes Please call the jorge ent to schedule the appointment, Encounter created and SMS sent to the pt., Michaelle Orozco 06/06/2025 03:25:59 PM > Referral Priority Routine Medications Medication SIG (Take, Route, Frequency, Duration) Notes Start Date End Date Status Vivitrol 380 MG as directed Intramuscular Once Monthly; Duration: 30 days 05/23/2025 Active Ondansetron HCl 4 MG 1 tablet Orally twi ce a day; Duration: 10 02/23/2024 Not-Taking Zepbound 10 MG/0.5ML 0.5 mL Subcutaneous weekly; Duration: 30 days 12/11/2024 Not-Taking Naltrexone HCl 50 MG 1 tablet Orally Onc e a day; Duration: 30 days 11/02/2023 Not-Takin g Cialis 5 MG 1 tablet as needed Orally Once a day; Duration: 30 days Active Ezetimibe 10 MG 1 tablet Orally Once a day; Duration: 90 days 07/10/2024 Active Meloxicam 15 MG 1 tablet Orally Once a day; Duration: 30 days 06/05/2024 Not-Takin g Topiramate 25 MG 1 tablet Orally twic e a day; Duration: 30 days 03/12/2025 Active chlordiazePOXIDE HCl 25 MG 1 capsule Ora lly Twice a day; Duration: 5 days 06/28/2024 Not-Taking Acamprosate Calcium 333 MG 2 tablets Ora lly Three times a day; Duration: 30 days 06/28/2024 Not-Taking chlordiazePOXIDE HCl 25 MG 1 capsule Ora lly Twice a day; Duration: 14 days 05/23/2025 Not-Taking tiZANidine HCl 4 MG 1 tablet at bedtime as needed Orally Once a day; Duration: 14 days 06/05/2024 Not-Takin g Acamprosate Calcium 333 MG 2 tablets Ora lly Three times a day; Duration: 30 days 05/23/2025 Active Wegovy 2.4 MG/0.75ML 0.75 mL Subcutaneou s once a week; Duration: 30 days 12/29/2022 Not-Taking cloNIDine HCl 0.1 MG 1 tablet Orally Onc e a day; Duration: 30 days 06/28/2024 Active Zepbound 12.5 MG/0.5ML 0.5 mL Subcutaneo us once a week; Duration: 30 days Active tiZANidine HCl 4 MG 1 tablet as needed Orally Three times a day; Duration: 7 days 11/22/2022 Not-Taking Meloxicam 15 MG 1 tablet Orally Once a day; Duration: 30 day(s) 11/22/2022 Active Ondansetron HCl 4 MG 1 tablet Orally twi ce a day; Duration: 10 days 07/24/2024 Not-Taking Gabapentin 300 MG 1 capsule Orally Onc e a day; Duration: 30 days 12/07/2023 Active Sertraline HCl 50 MG 1 tablet Orally Onc e a day; Duration: 30 days 11/06/2024 Active Zepbound 7.5 MG/0.5ML 0.5 mL Subcutaneou s weekly; Duration: 30 days 11/06/2024 Not-Taking Omeprazole 20 MG 1 capsule 1/2 to 1 hour before morning meal Orally Once a day; Duration: 30 days 02/12/2025 Not-Takin g Doxycycline Hyclate 100 MG 1 tablet Oral ly 2 TIMES A DAY; Duration: 14 days 07/24/2024 Not-Taking Social History Tobacco Use: Social History Observation [...] Status Risk Notes Problem Morbid obesity (disorder) (698592751) Morbid (severe) obesity due to excess calories (E66.01) Active confirmed Problem Mixed hyperlipidemia (046851249) Mixed hyperlipidemia (E78.2) Active confirmed Problem Hyperlipidemia (18418022) Hyperlipidemia, unspecified (E78.5) Active confirmed Problem Alcohol dependence (71974367) Alcohol dependence, uncomplicated (F10.20) Active confirmed Problem Tobacco user (551016886) Nicotine dependence, cigarettes, uncomplicated (F17.210) Active confirmed Problem Obstructive sleep apnea syndrome (disorder) (17192533) Obstructive sleep apnea (adult) (pediatric) (G47.33) Active confirmed Problem Carpal tunnel syndrome (36513394) Carpal tunnel syndrome, left upper limb (G56.02) Active confirmed Problem Polyneuropathy (31333942) Polyneuropathy, unspecified (G62.9) Active confirmed Problem Constipation (47766546) Constipation, unspecified (K59.00) Active confirmed Problem Hidradenitis suppurativa (32568117) Hidradenitis suppurativa (L73.2) Active confirmed Problem Degeneration of thoracolumbar intervertebral disc (45533956) Other intervertebral disc degeneration, thoracolumbar region (M51.35) Active confirmed Problem Plantar fascial fibromatosis (52319719) Plantar fascial fibromatosis (M72.2) Active confirmed Problem Erectile dysfunction (disorder) (641700848) Male erectile dysfunction, unspecified (N52.9) Active confirmed Problem Paresthesia (finding) (60342823) Paresthesia of skin (R20.2) Active confirmed Problem Carpal tunnel syndrome (43165242) Carpal tunnel syndrome, bilateral upper limbs (G56.03) Active confirmed Problem Anxiety (40169190) Anxiety (F41.9) Active confirmed Vital Signs Heart Rate 94 /min 06/05/2025 Temperature 96.6 degrees Fahrenheit 06/05/2025 Blood pressure diastolic 74 mm Hg 06/05/2025 Oximetry 98 % 06/05/2025 Height 70 in 06/05/2025 Blood pressure systolic 120 mm Hg 06/05/2025 Weight 301.2 lbs 06/05/2025 BMI 43.21 kg/m2 06/05/2025 Encounters Encounter Location Date Provider Diagnosis [address] [place] [address] 06/28/2024 Ghadeer Mazloum Alcohol dependence, uncomplicated F10.20 ; Dizziness R42 ; Anxiety F41.9 and Obstructive sleep apnea (adult) (pediatric) G47.[address] [address] 07/24/2024 LOPEZ GUL Morbid (severe) obes ity due to excess calories E66.01 ; Anxiety F41.9 ; Hidradenitis suppurativa L73.2 and Dietary counseling and surveillance Z71.[address] [address] 08/22/[address] [address] 09/04/2024 Ghadeer Mazloum Morbid (severe) obes ity due to excess calories E66.01 ; Anxiety F41.9 and Hyperlipidemia, unspecified E78.[address] [place] [address] 10/09/2024 LOPEZ GUL Morbid (severe) obes ity due to excess calories E66.01 ; Anxiety F41.9 ; Hyperlipidemia, unspecified E78.5 ; Plantar fascial fibromatosis M72.2 and Carpal tunnel syndrome, bilateral upper limbs G56.[address] [address] 11/06/2024 Ghadeer Mazloum Morbid (severe) obes ity due to excess calories E66.01 ; Anxiety F41.9 ; Carpal tunnel syndrome, bilateral upper limbs G56.03 ; Carpal tunnel syndrome, left upper limb G56.02 and Hidradenitis suppurativa L73.[address] [place] [address] 12/11/2024 Ghadeer Mazloum Morbid (severe) obes ity due to excess calories E66.01 ; Anxiety F41.9 ; Carpal tunnel syndrome, bilateral upper limbs G56.03 and Plantar fascial fibromatosis M72.[address] [place] [address] 01/08/2025 Ghadeer Mazloum Morbid (severe) obes ity due to excess calories E66.01 ; Dietary counseling and surveillance Z71.3 ; Mixed hyperlipidemia E78.2 and Unilateral inguinal hernia, without obstruction or gangrene, not specified as recurrent K40.[address] [address] 02/12/2025 Ghadeer Mazloum Morbid (severe) obes ity due to excess calories E66.01 ; Dietary counseling and surveillance Z71.3 and Unilateral inguinal hernia, without obstruction or gangrene, recurrent K40.[address] [address] 03/12/2025 Ghadeer Mazloum Morbid (severe) obes ity due to excess calories E66.01 and Dietary counseling and surveillance Z71.[address] [address] 05/23/2025 Ghadeer Mazloum Morbid (severe) obes ity due to excess calories E66.01 ; Dietary counseling and surveillance Z71.3 ; Alcohol dependence, uncomplicated F10.20 ; Anxiety F41.9 ; Obstructive sleep apnea (adult) (pediatric) G47.33 and Mixed hyperlipidemia E78.[address] [address] 06/05/2025 Ghadeer Mazloum Alcohol dependence, uncomplicated F10.20 ; Morbid (severe) obesity due to excess calories E66.01 ; Dietary counseling and surveillance Z71.3 and Strain of muscle, fascia and tendon of lower back, initial encounter S39.012A [place] [address] [facility] [address] [place] [address] 06/27/2024 LOPEZ GUL Morbid (severe) obes ity due to excess calories E66.01 [facility] [address] [facility] [address] [place] [address] 07/06/2024 [facility] [address] [facility] [address] [place] [address] 07/10/2024 [facility] hyper[facility] E78.2 [facility] [address] [facility] [address] [place] [address] 07/24/2024 LOPEZ GUL Morbid (severe) obes ity due to excess calories E66.01 [facility] [address] [facility] [address] [place] [address] 07/31/2024 [facility] [address] [facility] [address] [place] [address] 08/24/2024 [facility] [address] [facility] [address] [place] [address] 08/25/2024 [facility] [address] [facility] [address] [place] [address] 10/15/2024 [facility] [address] [facility] [address] [place] [address] 11/06/2024 [facility] [address] [facility] [address] [place] [address] 11/23/2024 [facility] [address] [facility] [address] [place] [address] 12/12/2024 [facility] [address] [facility] [address] [place] [address] 01/01/2025 [facility] [address] [facility] [address] [place] [address] 01/08/2025 [facility] [address] [facility] [address] [place] [address] 03/12/2025 [facility] [address] [facility] [address] [place] [address] 05/17/[address] [place] [address] 05/23/2025 [facility] [address] [facility] [address] [place] [address] 05/30/[address] [place] [address] 06/05/[address] [place] [address] 06/06/2025 JESSICA FERNANDEZ Assessments Encounter Date Diagnosis (ICD Code) Assessment Notes Treatment Notes Treatment Clinical Notes Section Notes 06/27/2024 Morbid (severe) obesity due to excess [...] Meal replacements were recommended. Advised to use ijaw-hgq-oshymzq multivitamins and vitamin D. Advised to use [...] this note under HIPAA compliance and under [place] law mandated for scribe services. Patient aware [...] Meal replacements were recommended. Advised to use zizl-bte-uzavftb multivitamins and vitamin D. Advised to use [...] this note under HIPAA compliance and under [place] law mandated for scribe services. Patient aware [...] Meal replacements were recommended. Advised to use wqca-mzp-hmkhpfq multivitamins and vitamin D. Advised to use [...] has been taken Zetia for high triglyceride. [place] supplements are recommended given combined hyperlipidemia. Will [...] Meal replacements were recommended. Advised to use eqok-uad-uqdyhgl multivitamins and vitamin D. Advised to use [...] has been taken Zetia for high triglyceride. [place] supplements are recommended given combined hyperlipidemia. Will check lipid panel and make recommendations based on that. I have advised on continuation on diet modification with decreasing carb intake and increasing fibers. Bilateral carpal tunnel syndrome. He is given referrals to hand surgery Left foot plantar fasciitis. X-ray of the left foot to rule out bony spurs and he can use xxwo-avo-jnuijlk heel pads Alcohol dependence. Discussed complications of [...] Meal replacements were recommended. Advised to use haip-jvx-oeqhbbo multivitamins and vitamin D. Advised to use [...] has been taken Zetia for high triglyceride. [place] supplements are recommended given combined hyperlipidemia. Will check lipid panel and make recommendations based on that. I have advised on continuation on diet modification with decreasing carb intake and increasing fibers. Bilateral carpal tunnel syndrome. He is given referrals to hand surgery Left foot plantar fasciitis. X-ray of the left foot to rule out bony spurs and he can use crqo-jdf-rztsfbr heel pads Alcohol dependence. Discussed complications of [...] Meal replacements were recommended. Advised to use hjvt-rjv-hpjibtv multivitamins and vitamin D. Advised to use [...] has been taken Zetia for high triglyceride. [place] supplements are recommended given combined hyperlipidemia. Will [...] Meal replacements were recommended. Advised to use ttod-nfd-yhcyqct multivitamins and vitamin D. 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 Advised to use zczm-alf-rkzkpjl multivitamins and vitamin D. Advised to use [...] Meal replacements were recommended. Advised to use pwsc-avr-mfogdko multivitamins and vitamin D. Advised to use [...] has been taken Zetia for high triglyceride. [place] supplements are recommended given combined hyperlipidemia. Will [...] patient but was available upon request 12/11/2024 Morbid (severe) obesity due to excess [...] Meal replacements were recommended. Advised to use poth-ker-bsaudar multivitamins and vitamin D. 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 Advised to use hgio-kcq-kxmgnqe multivitamins and vitamin D. Advised to use [...] Meal replacements were recommended. Advised to use csvo-zye-bupaxtl multivitamins and vitamin D. Advised to use [...] Meal replacements were recommended. Advised to use urpf-hpl-fztvzok multivitamins and vitamin D. Advised to use [...] Meal replacements were recommended. Advised to use nsbf-jlx-wrjodul multivitamins and vitamin D. Advised to use [...] Meal replacements were recommended. Advised to use cofv-cvc-exssbbw multivitamins and vitamin D. Advised to use [...] the patient but was available upon request 05/23/2025 Morbid (severe) obesity due to excess calories (ICD-10 - E66.01) Mr. Tolentino is a 39-year-old gentleman with testicular hypofunction and morbid obesity here for medical weight management. He lost 3 pounds since the last visit and he is also to discuss depression and alcohol dependence management. Plan as follows Morbid obesity Dietary recommendations. Food recall was done today and patient advised to be on low calorie, low carbohydrate diet. Restrict calories to less than 1500 kcal in 24 hours. Low glycemic index foods and encouraged. Meal replacements were recommended. Advised to use nlii-mxe-ujbgndc multivitamins and vitamin D. Advised to use calorie counter and adhere to portion control. Monthly goal is to lose 4-6 pounds Pharmacotherapy.Co ntinue on Zepbound 12.5MG/0.5ML weekly. We have discussed Topamax [...] of time was spent counseling Alcohol dependence. I have resumed patient back on the clonidine, I will also start patient on a chlordiazepoxide to help with withdrawal symptoms, I did also start the patient on campral, and he is to resume back on topiramate to further suppress cravings for alcohol. He is willing to be started on Vivitrol shot, thus we will check for LFTs. He has been on naltrexone before and Discontinued as he experienced hallucination. Recommendation is to be on folate and thiamine. We will also check B12 and folate levels. The discussed having a sponsor, did recommend reaching out to [facility] as they have an intensive program for alcohol detox including AA meetings and intensive therapy. He agrees with the plan and will follow up in 2 weeks as next week he has surgery for carpal tunnel. Depression. He does follow with a therapist he has not been taking sertraline since November. Resume patient back on sertraline 50 mg. No SI at this point I recommended less than modification will follow up in 2 weeks. Hydradenitis suppurativa: information to reach out to dermatology is given in the office today Hyperlipidemia. Advised and compliance with Zetia. We will check lipid panel FLORA. He is not compliant with the CPAP machine due to intolerance thus recommended to reach out to the sleep medicine clinic and discuss nasal cannula as compliance is recommended and complications of FLORA discussed Screening blood work before next appointments General concerns discussed with the patient. I have rendered the services for this patient under direct supervision of Dr. Fernandez, who did not see the patient but was available upon request 05/23/2025 Dietary counseling and surveillance (ICD-10 - Z71.3) Mr. Tolentino is a 39-year-old gentleman with testicular hypofunction and morbid obesity here for medical weight management. He lost 3 pounds since the last visit and he is also to discuss depression and alcohol dependence management. Plan as follows Morbid obesity Dietary recommendations. Food recall was done today and patient advised to be on low calorie, low carbohydrate diet. Restrict calories to less than 1500 kcal in 24 hours. Low glycemic index foods and encouraged. Meal replacements were recommended. Advised to use tvfy-voy-kbkkakt multivitamins and vitamin D. Advised to use calorie counter and adhere to portion control. Monthly goal is to lose 4-6 pounds Pharmacotherapy.Co ntinue on Zepbound 12.5MG/0.5ML weekly. We have discussed Topamax [...] of time was spent counseling Alcohol dependence. I have resumed patient back on the clonidine, I will also start patient on a chlordiazepoxide to help with withdrawal symptoms, I did also start the patient on campral, and he is to resume back on topiramate to further suppress cravings for alcohol. He is willing to be started on Vivitrol shot, thus we will check for LFTs. He has been on naltrexone before and Discontinued as he experienced hallucination. Recommendation is to be on folate and thiamine. We will also check B12 and folate levels. The discussed having a sponsor, did recommend reaching out to [facility] as they have an intensive program for alcohol detox including AA meetings and intensive therapy. He agrees with the plan and will follow up in 2 weeks as next week he has surgery for carpal tunnel. Depression. He does follow with a therapist he has not been taking sertraline since November. Resume patient back on sertraline 50 mg. No SI at this point I recommended less than modification will follow up in 2 weeks. Hydradenitis suppurativa: information to reach out to dermatology is given in the office today Hyperlipidemia. Advised and compliance with Zetia. We will check lipid panel FLORA. He is not compliant with the CPAP machine due to intolerance thus recommended to reach out to the sleep medicine clinic and discuss nasal cannula as compliance is recommended and complications of FLORA discussed Screening blood work before next appointments General concerns discussed with the patient. I have rendered the services for this patient under direct supervision of Dr. Fernandez, who did not see the patient but was available upon request 06/05/2025 Morbid (severe) obesity due to excess calories (ICD-10 - E66.01) Ayaz Is a 39-year-old gentleman with a past medical history of alcohol dependence, FLORA, hyperlipidemia, anxiety, hydradenitis super diva and obesity is here today for Follow-up on alcohol dependence. Plan as follows Alcohol dependence. He has finished the course of the chlordiazepoxide. He is currently on clonidine, He will resume back on campral, and he is to resume back on topiramate to further suppress cravings for alcohol. He will contact his pharmacy to check on the status of Vivitrol shot. Liver function is stable. B12 and folate are within normal limits He is currently following up with a therapy twice a week Depression. He does follow with a therapist He resumed back on sertraline 50 mg. No SI at this point. Hyperlipidemia. Recent triglyceride of 159, he resumed back on Zetia. General concerns have been discussed Morbid obesity. He is currently on Zepbound 12.5mg, 7 pounds since her last visit. Continue present regimen continue with diet modification and exercising Low back pain, strain of muscle. Continue on gabapentin 300 mg and refer patient to physical therapy I have rendered the services for this patient under direct supervision of Dr. Fernandez, who did not see the patient but was available upon request We will check lipid panel discussed Content of this note has been dictated using voice recognition software. Despite multiple revisions, Errors may persist 06/05/2025 Alcohol dependence, uncomplicated (ICD-10 - F10.20) Ayaz Is a 39-year-old gentleman with a past medical history of alcohol dependence, FLORA, hyperlipidemia, anxiety, hydradenitis super diva and obesity is here today for Follow-up on alcohol dependence. Plan as follows Alcohol dependence. He has finished the course of the chlordiazepoxide. He is currently on clonidine, He will resume back on campral, and he is to resume back on topiramate to further suppress cravings for alcohol. He will contact his pharmacy to check on the status of Vivitrol shot. Liver function is stable. B12 and folate are within normal limits He is currently following up with a therapy twice a week Depression. He does follow with a therapist He resumed back on sertraline 50 mg. No SI at this point. Hyperlipidemia. Recent triglyceride of 159, he resumed back on Zetia. General concerns have been discussed Morbid obesity. He is currently on Zepbound 12.5mg, 7 pounds since her last visit. Continue present regimen continue with diet modification and exercising Low back pain, strain of muscle. Continue on gabapentin 300 mg and refer patient to physical therapy I have rendered the services for this patient under direct supervision of Dr. Fernandez, who did not see the patient but was available upon request We will check lipid panel discussed Content of this note has been dictated using voice recognition software. Despite multiple revisions, Errors may persist 12/11/2024 Carpal tunnel syndrome, bilateral upper limbs [...] Meal replacements were recommended. Advised to use sxue-zme-ocepmdd multivitamins and vitamin D. 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 Alcohol dependence. Discussed complications of alcohol and abstinence encouraged. Nicotine dependence. Encouraged smoking cessation. Is not ready to quit at this point I have rendered the services for this patient under direct supervision of Dr. Fernandez, who did not see the patient but was available upon request 06/05/2025 Dietary counseling and surveillance (ICD-10 - Z71.3) Ayaz Is a 39-year-old gentleman with a past medical history of alcohol dependence, FLORA, hyperlipidemia, anxiety, hydradenitis super diva and obesity is here today for Follow-up on alcohol dependence. Plan as follows Alcohol dependence. He has finished the course of the chlordiazepoxide. He is currently on clonidine, He will resume back on campral, and he is to resume back on topiramate to further suppress cravings for alcohol. He will contact his pharmacy to check on the status of Vivitrol shot. Liver function is stable. B12 and folate are within normal limits He is currently following up with a therapy twice a week Depression. He does follow with a therapist He resumed back on sertraline 50 mg. No SI at this point. Hyperlipidemia. Recent triglyceride of 159, he resumed back on Zetia. General concerns have been discussed Morbid obesity. He is currently on Zepbound 12.5mg, 7 pounds since her last visit. Continue present regimen continue with diet modification and exercising Low back pain, strain of muscle. Continue on gabapentin 300 mg and refer patient to physical therapy I have rendered the services for this patient under direct supervision of Dr. Fernandez, who did not see the patient but was available upon request We will check lipid panel discussed Content of this note has been dictated using voice recognition software. Despite multiple revisions, Errors may persist 05/23/2025 Alcohol dependence, uncomplicated (ICD-10 - F10.20) Mr. Tolentino is a 39-year-old gentleman with testicular hypofunction and morbid obesity here for medical weight management. He lost 3 pounds since the last visit and he is also to discuss depression and alcohol dependence management. Plan as follows Morbid obesity Dietary recommendations. Food recall was done today and patient advised to be on low calorie, low carbohydrate diet. Restrict calories to less than 1500 kcal in 24 hours. Low glycemic index foods and encouraged. Meal replacements were recommended. Advised to use dvcg-kxa-nizaqjg multivitamins and vitamin D. Advised to use calorie counter and adhere to portion control. Monthly goal is to lose 4-6 pounds Pharmacotherapy.Co ntinue on Zepbound 12.5MG/0.5ML weekly. We have discussed Topamax [...] of time was spent counseling Alcohol dependence. I have resumed patient back on the clonidine, I will also start patient on a chlordiazepoxide to help with withdrawal symptoms, I did also start the patient on campral, and he is to resume back on topiramate to further suppress cravings for alcohol. He is willing to be started on Vivitrol shot, thus we will check for LFTs. He has been on naltrexone before and Discontinued as he experienced hallucination. Recommendation is to be on folate and thiamine. We will also check B12 and folate levels. The discussed having a sponsor, did recommend reaching out to [facility] as they have an intensive program for alcohol detox including AA meetings and intensive therapy. He agrees with the plan and will follow up in 2 weeks as next week he has surgery for carpal tunnel. Depression. He does follow with a therapist he has not been taking sertraline since November. Resume patient back on sertraline 50 mg. No SI at this point I recommended less than modification will follow up in 2 weeks. Hydradenitis suppurativa: information to reach out to dermatology is given in the office today Hyperlipidemia. Advised and compliance with Zetia. We will check lipid panel FLORA. He is not compliant with the CPAP machine due to intolerance thus recommended to reach out to the sleep medicine clinic and discuss nasal cannula as compliance is recommended and complications of FLORA discussed Screening blood work before next appointments General concerns discussed with the patient. I have rendered the services for [...] Meal replacements were recommended. Advised to use kilc-vtw-ngrnrot multivitamins and vitamin D. Advised to use [...] Meal replacements were recommended. Advised to use dzbj-fqo-ywlurpi multivitamins and vitamin D. Advised to use [...] Meal replacements were recommended. Advised to use fout-nrr-vvbpghz multivitamins and vitamin D. Advised to use [...] has been taken Zetia for high triglyceride. [place] supplements are recommended given combined hyperlipidemia. Will [...] Meal replacements were recommended. Advised to use mfbv-xof-wvundaa multivitamins and vitamin D. Advised to use [...] has been taken Zetia for high triglyceride. [place] supplements are recommended given combined hyperlipidemia. Will [...] Meal replacements were recommended. Advised to use tzjh-eii-fftfmki multivitamins and vitamin D. Advised to use [...] has been taken Zetia for high triglyceride. [place] supplements are recommended given combined hyperlipidemia. Will check lipid panel and make recommendations based on that. I have advised on continuation on diet modification with decreasing carb intake and increasing fibers. Bilateral carpal tunnel syndrome. He is given referrals to hand surgery Left foot plantar fasciitis. X-ray of the left foot to rule out bony spurs and he can use tchz-huy-otwynka heel pads Alcohol dependence. Discussed complications of [...] Meal replacements were recommended. Advised to use pcne-cfx-dtgefkx multivitamins and vitamin D. Advised to use [...] this note under HIPAA compliance and under [place] law mandated for scribe services. Patient aware [...] Meal replacements were recommended. Advised to use hqhs-onc-mapkfpj multivitamins and vitamin D. Advised to use [...] this note under HIPAA compliance and under [place] law mandated for scribe services. Patient aware [...] Meal replacements were recommended. Advised to use fnwd-gob-rbjihxy multivitamins and vitamin D. Advised to use [...] has been taken Zetia for high triglyceride. [place] supplements are recommended given combined hyperlipidemia. Will [...] Meal replacements were recommended. Advised to use kkzn-foo-nqsnmrn multivitamins and vitamin D. Advised to use [...] has been taken Zetia for high triglyceride. [place] supplements are recommended given combined hyperlipidemia. Will check lipid panel and make recommendations based on that. I have advised on continuation on diet modification with decreasing carb intake and increasing fibers. Bilateral carpal tunnel syndrome. He is given referrals to hand surgery Left foot plantar fasciitis. X-ray of the left foot to rule out bony spurs and he can use ttxb-yxq-kqqsjtj heel pads Alcohol dependence. Discussed complications of [...] Meal replacements were recommended. Advised to use yrhx-tbo-hioftem multivitamins and vitamin D. Advised to use [...] has been taken Zetia for high triglyceride. [place] supplements are recommended given combined hyperlipidemia. Will [...] Meal replacements were recommended. Advised to use oihx-jtl-hwnzqqi multivitamins and vitamin D. Advised to use [...] patient but was available upon request 12/11/2024 Plantar fascial fibromatosis (ICD-10 - M72.2) [...] Meal replacements were recommended. Advised to use mimw-ivd-tpmvxdf multivitamins and vitamin D. 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 Alcohol dependence. Discussed complications of alcohol and abstinence encouraged. Nicotine dependence. Encouraged smoking cessation. Is not ready to quit at this point I have rendered the services for this patient under direct supervision of Dr. Fenrandez, who did not see the patient but was available upon request 05/23/2025 Anxiety (ICD-10 - F41.9) Mr. Tolentino is a 39-year-old gentleman with testicular hypofunction and morbid obesity here for medical weight management. He lost 3 pounds since the last visit and he is also to discuss depression and alcohol dependence management. Plan as follows Morbid obesity Dietary recommendations. Food recall was done today and patient advised to be on low calorie, low carbohydrate diet. Restrict calories to less than 1500 kcal in 24 hours. Low glycemic index foods and encouraged. Meal replacements were recommended. Advised to use jnxw-yok-pzvpmfj multivitamins and vitamin D. Advised to use calorie counter and adhere to portion control. Monthly goal is to lose 4-6 pounds Pharmacotherapy.Co ntinue on Zepbound 12.5MG/0.5ML weekly. We have discussed Topamax [...] of time was spent counseling Alcohol dependence. I have resumed patient back on the clonidine, I will also start patient on a chlordiazepoxide to help with withdrawal symptoms, I did also start the patient on campral, and he is to resume back on topiramate to further suppress cravings for alcohol. He is willing to be started on Vivitrol shot, thus we will check for LFTs. He has been on naltrexone before and Discontinued as he experienced hallucination. Recommendation is to be on folate and thiamine. We will also check B12 and folate levels. The discussed having a sponsor, did recommend reaching out to [facility] as they have an intensive program for alcohol detox including AA meetings and intensive therapy. He agrees with the plan and will follow up in 2 weeks as next week he has surgery for carpal tunnel. Depression. He does follow with a therapist he has not been taking sertraline since November. Resume patient back on sertraline 50 mg. No SI at this point I recommended less than modification will follow up in 2 weeks. Hydradenitis suppurativa: information to reach out to dermatology is given in the office today Hyperlipidemia. Advised and compliance with Zetia. We will check lipid panel FLORA. He is not compliant with the CPAP machine due to intolerance thus recommended to reach out to the sleep medicine clinic and discuss nasal cannula as compliance is recommended and complications of FLORA discussed Screening blood work before next appointments General concerns discussed with the patient. I have rendered the services for this patient under direct supervision of Dr. Fernandez, who did not see the patient but was available upon request 06/05/2025 Strain of muscle, fascia and tendon of lower back, initial encounter (ICD-10 - S39.012A) Ayaz Is a 39-year-old gentleman with a past medical history of alcohol dependence, FLORA, hyperlipidemia, anxiety, hydradenitis super diva and obesity is here today for Follow-up on alcohol dependence. Plan as follows Alcohol dependence. He has finished the course of the chlordiazepoxide. He is currently on clonidine, He will resume back on campral, and he is to resume back on topiramate to further suppress cravings for alcohol. He will contact his pharmacy to check on the status of Vivitrol shot. Liver function is stable. B12 and folate are within normal limits He is currently following up with a therapy twice a week Depression. He does follow with a therapist He resumed back on sertraline 50 mg. No SI at this point. Hyperlipidemia. Recent triglyceride of 159, he resumed back on Zetia. General concerns have been discussed Morbid obesity. He is currently on Zepbound 12.5mg, 7 pounds since her last visit. Continue present regimen continue with diet modification and exercising Low back pain, strain of muscle. Continue on gabapentin 300 mg and refer patient to physical therapy I have rendered the services for this patient under direct supervision of Dr. Fernandez, who did not see the patient but was available upon request We will check lipid panel discussed Content of this note has been dictated using voice recognition software. Despite multiple revisions, Errors may persist 05/23/2025 Obstructive sleep apnea (adult) (pediatric) (ICD-10 - G47.33) Mr. Tolentino is a 39-year-old gentleman with testicular hypofunction and morbid obesity here for medical weight management. He lost 3 pounds since the last visit and he is also to discuss depression and alcohol dependence management. Plan as follows Morbid obesity Dietary recommendations. Food recall was done today and patient advised to be on low calorie, low carbohydrate diet. Restrict calories to less than 1500 kcal in 24 hours. Low glycemic index foods and encouraged. Meal replacements were recommended. Advised to use rljw-wec-sbixmzh multivitamins and vitamin D. Advised to use calorie counter and adhere to portion control. Monthly goal is to lose 4-6 pounds Pharmacotherapy.Co ntinue on Zepbound 12.5MG/0.5ML weekly. We have discussed Topamax [...] of time was spent counseling Alcohol dependence. I have resumed patient back on the clonidine, I will also start patient on a chlordiazepoxide to help with withdrawal symptoms, I did also start the patient on campral, and he is to resume back on topiramate to further suppress cravings for alcohol. He is willing to be started on Vivitrol shot, thus we will check for LFTs. He has been on naltrexone before and Discontinued as he experienced hallucination. Recommendation is to be on folate and thiamine. We will also check B12 and folate levels. The discussed having a sponsor, did recommend reaching out to [facility] as they have an intensive program for alcohol detox including AA meetings and intensive therapy. He agrees with the plan and will follow up in 2 weeks as next week he has surgery for carpal tunnel. Depression. He does follow with a therapist he has not been taking sertraline since November. Resume patient back on sertraline 50 mg. No SI at this point I recommended less than modification will follow up in 2 weeks. Hydradenitis suppurativa: information to reach out to dermatology is given in the office today Hyperlipidemia. Advised and compliance with Zetia. We will check lipid panel FLORA. He is not compliant with the CPAP machine due to intolerance thus recommended to reach out to the sleep medicine clinic and discuss nasal cannula as compliance is recommended and complications of FLORA discussed Screening blood work before next appointments General concerns discussed with the patient. I have rendered the services for [...] Meal replacements were recommended. Advised to use fvix-klq-xymwnhf multivitamins and vitamin D. Advised to use [...] has been taken Zetia for high triglyceride. [place] supplements are recommended given combined hyperlipidemia. Will [...] Meal replacements were recommended. Advised to use rane-vwc-ouwklnv multivitamins and vitamin D. Advised to use [...] has been taken Zetia for high triglyceride. [place] supplements are recommended given combined hyperlipidemia. Will check lipid panel and make recommendations based on that. I have advised on continuation on diet modification with decreasing carb intake and increasing fibers. Bilateral carpal tunnel syndrome. He is given referrals to hand surgery Left foot plantar fasciitis. X-ray of the left foot to rule out bony spurs and he can use zkpa-lcs-clprjeg heel pads Alcohol dependence. Discussed complications of alcohol and abstinence encouraged. Nicotine dependence. Encouraged smoking cessation. Is not ready to quit at this point 05/23/2025 Mixed hyperlipidemia (ICD-10 - E78.2) Mr. Tolentino is a 39-year-old gentleman with testicular hypofunction and morbid obesity here for medical weight management. He lost 3 pounds since the last visit and he is also to discuss depression and alcohol dependence management. Plan as follows Morbid obesity Dietary recommendations. Food recall was done today and patient advised to be on low calorie, low carbohydrate diet. Restrict calories to less than 1500 kcal in 24 hours. Low glycemic index foods and encouraged. Meal replacements were recommended. Advised to use kvnn-gzs-mdprpom multivitamins and vitamin D. Advised to use calorie counter and adhere to portion control. Monthly goal is to lose 4-6 pounds Pharmacotherapy.Co ntinue on Zepbound 12.5MG/0.5ML weekly. We have discussed Topamax [...] of time was spent counseling Alcohol dependence. I have resumed patient back on the clonidine, I will also start patient on a chlordiazepoxide to help with withdrawal symptoms, I did also start the patient on campral, and he is to resume back on topiramate to further suppress cravings for alcohol. He is willing to be started on Vivitrol shot, thus we will check for LFTs. He has been on naltrexone before and Discontinued as he experienced hallucination. Recommendation is to be on folate and thiamine. We will also check B12 and folate levels. The discussed having a sponsor, did recommend reaching out to [facility] as they have an intensive program for alcohol detox including AA meetings and intensive therapy. He agrees with the plan and will follow up in 2 weeks as next week he has surgery for carpal tunnel. Depression. He does follow with a therapist he has not been taking sertraline since November. Resume patient back on sertraline 50 mg. No SI at this point I recommended less than modification will follow up in 2 weeks. Hydradenitis suppurativa: information to reach out to dermatology is given in the office today Hyperlipidemia. Advised and compliance with Zetia. We will check lipid panel FLORA. He is not compliant with the CPAP machine due to intolerance thus recommended to reach out to the sleep medicine clinic and discuss nasal cannula as compliance is recommended and complications of FLORA discussed Screening blood work before next appointments General concerns discussed with the patient. I have rendered the services for this patient under direct supervision of Dr. Fernandez, who did not see the patient but was available upon request Plan Of Treatment Pending Test Test Name Order Date X ray : Foot, left 3v 10/09/2024 US Soft Tissue Groin 01/08/2025 CBC/Differential (No Platelet)-[id number] Lipid Panel-[id number] 09/04/2024 Lipid Panel-[id number] 10/09/2024 Next Appt Details Provider Name:Angie maradiaga, 06/25/2025 02:30:00 PM, [address] [place] [address] [address], [place], [address], Insurance Providers Payer Name Payer Address Payer Phone Subscriber Number Group Number Insured Name Patient Relationship to Insured Coverage Start Date Coverage End Date [facility] [address] [place] [phone] [id number] Ayaz Tolentino Self - patient is the [...]
== END 2025-06-12 15:23 | disposition home or self-care (01) ==
LOC: HO.HOS 14:51
PROVIDERS: PCP Hospitalist; Visit Provider Orthopaedic Surgery
DX: G56.03 Carpal tunnel syndrome, bilateral upper limbs (principal)
CPT/HCPCS: 99214